=== PATIENT | female | born 1985 | race American Indian/Alaskan Native ===

== ENCOUNTER 2019-04-21 11:20 | Inpatient (IN) | payer OTHER ==
--- NOTE | 2019-04-21 11:29 | Emergency Department Report ---
Blank Doc - Documentation Documentation: This is a 33-year-old female that presents with right leg pain and swelling af ter 4 hour flight. This initial assessment/diagnostic orders/clinical plan/treatment(s) is/are subject to change based on patient's health status, clinical progression and re- assessment by fellow clinical providers in the ED. Further treatment and workup at subsequent clinical providers discretion. Patient/guardians urged not to elope from the ED as their condition may be serious if not clinically assessed and managed. Initial orders include: 1- Patient sent to [facility] for further evaluation and treatment 2- Doppler US
--- NOTE | 2019-04-21 11:44 | Emergency Department Report ---
ED Extremity Problem HPI - General Chief complaint: Extremity Problem,Nontraumatic Stated complaint: LT LEG SWELLING/PAIN Time Seen by Provider: 04/21/19 11:28 Source: patient Mode of arrival: Ambulatory Limitations: No Limitations - History of Present Illness Initial comments: Patient is a 33-year-old female that presents emergency room with right leg pain and swelling. Patient states her pain is from the right mid calf down to her ankle. Patient states is nonradiating. Patient states the pain is an 8 out of 10. Patient states it is worse when she walks and better when she elevates and rest. Patient states she had liposuction one week ago in [place] and then flew back yesterday to [place] on a 4-5 hour flight. Patient states the sympto ms started shortly after taking the flight. Patient states she had a pertinency test just prior to the surgery and was negative. Patient states she has not had any sexual activity since having that urine . MD Complaint: extremity pain, extremity swelling -: Sudden Location: right, lower extremity History of Same: No Severity scale (0 -10): 8 Quality: sharp Consistency: constant Improves with: elevation, rest Worsens with: walking, palpation Associated Symptoms: denies other symptoms - Related Data Previous Rx's Medication Instructions Recorded Last Taken Type Fluticasone Propionate [Flonase] 2 sprays NS QDAY #1 bottle 12/16/14 Unknown Rx Loratadine [Claritin] 10 mg PO DAILY #30 tablet 12/16/14 Unknown Rx predniSONE [Deltasone] 40 mg PO QDAY #10 tab 12/16/14 Unknown Rx Allergies Allergy/AdvReac Type Severity Reaction Status Date / Time No Known Allergies Allergy Unverified 12/16/14 00:11 ED Review of Systems ROS: Stated complaint: LT LEG SWELLING/PAIN Other details as noted in HPI Constitutional: denies: chills, fever Eyes: denies: eye pain, eye discharge, vision change ENT: denies: ear pain, throat pain Respiratory: denies: cough, shortness of breath, wheezing Cardiovascular: denies: chest pain, palpitations Endocrine: no symptoms reported Gastrointestinal: denies: abdominal pain, nausea, diarrhea Genitourinary: denies: urgency, dysuria, discharge Musculoskeletal: denies: back pain, joint swelling, arthralgia Skin: denies: rash, lesions Neurological: denies: headache, weakness, paresthesias Psychiatric: denies: anxiety, depression Hematological/Lymphatic: denies: easy bleeding, easy bruising ED Past Medical Hx - Past Medical History Previous Medical History?: No - Surgical History Past Surgical History?: Yes Additional Surgical History: Gastric sleeve 2017. Liposuction 04/2019 - Family History Family history: no significant - Social History Smoking Status: Current Every Day Smoker Substance Use Type: None - Medications Home Medications: Home Medications Medication Instructions Recorded Confirmed Last Taken Type Fluticasone Propionate [Flonase] 2 sprays NS QDAY #1 bottle 12/16/14 Unknown Rx Loratadine [Claritin] 10 mg PO DAILY #30 tablet 12/16/14 Unknown Rx predniSONE [Deltasone] 40 mg PO QDAY #10 tab 12/16/14 Unknown Rx ED Physical Exam - General Limitations: No Limitations General appearance: alert, in no apparent distress - Head Head exam: Present: atraumatic, normocephalic - Eye Eye exam: Present: normal appearance - ENT ENT exam: Present: mucous membranes moist - Neck Neck exam: Present: normal inspection - Respiratory Respiratory exam: Present: normal lung sounds bilaterally. Absent: respiratory distress - Cardiovascular Cardiovascular Exam: Present: regular rate, normal rhythm. Absent: systolic murmur, diastolic murmur, rubs, gallop - GI/Abdominal GI/Abdominal exam: Present: soft, normal bowel sounds - Extremities Exam Extremities exam: Present: normal inspection (except for right lower extremity.), tenderness (tenderness to right calf and right ankle. Swelling noted at right ankle), calf tenderness (.) - Back Exam Back exam: Present: normal inspection - Neurological Exam Neurological exam: Present: alert, oriented X3 - Psychiatric Psychiatric exam: Present: normal affect, normal mood - Skin Skin exam: Present: warm, dry, intact, normal color. Absent: rash ED Course Vital Signs 04/21/19 04/21/19 04/21/19 11:28 14:33 15:00 Temperature 98.5 F Pulse Rate 121 H Respiratory 18 16 17 Rate Blood Pressure 140/79 Blood Pressure [Right] O2 Sat by Pulse 100 Oximetry 04/21/19 16:34 Temperature Pulse Rate 107 H Respiratory 18 Rate Blood Pressure Blood Pressure 127/86 [Right] O2 Sat by Pulse 100 Oximetry - Consultations Consultation #1: Discussed case with Dr. Black, vascular surgery. Dr. Black recommends admission and heparin drip and CT abdomen and pelvis with runoff. 04/21/19 14:27 Consultation #2: Hospitals consult for admission. Hospitalist to admit the patient. 04/21/19 14:47 ED Medical Decision Making - Lab Data Result diagrams: 04/21/19 15:35 04/21/19 12:31 - Radiology Data Radiology results: report reviewed, image reviewed ADDENDUM Addendum: Additional findings were noted by the technologist in the left popliteal artery. There appears to be hypoechoic nonocclusive thrombus in the left popliteal artery. Normal triphasic waveforms are demonstrated proximal and distal to this assumed partial thrombosis. These findings were discussed with Dr. ac in the emergency department at 1352 hours. Signer Name: Lance Santos Jr, MD Signed: 04/21/2019 1:56 PM Workstation Name: [id number] Addendum Transcribed By: TTR Addendum Dictated By: LANCE SANTOS JR, MD Addendum Electronically Authenticated By: LANCE SANTOS JR, MD Addendum Signed Date/Time: 04/21/191355 DD/ /04/1353 TD/TT: / DUPLEX DOPPLER LOWER EXTREMITY VEINS, RIGHT INDICATION: right leg pain and swelling. TECHNIQUE: Duplex doppler imaging was performed through the veins of the right lower extremity using venous compression and other maneuvers. COMPARISON: No relevant prior imaging study available. FINDINGS: Right Common femoral vein: Negative. Right Superficial femoral vein: Negative. Right Popliteal vein: Negative. Right Calf veins: Negative. Additional findings: None.. IMPRESSION: No sonographic evidence for DVT in the right lower extremity. CTA ABD/pelvis with run off. IMPRESSION: 1. 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 2. No additional significant vascular abnormality of the abdomen, pelvis or lower extremities. - Medical Decision Making Patient is a 33-year-old female that presents emergency room with right leg pain. Patient had recent travel and is postop and had a DVT study done. Ultra sound was negative for DVT Arber shows a nonocclusive thrombus of the right popliteal artery. Patient had labs were unremarkable except for extreme anemia. Patient is recently postop from a liposuction. Patient will given 2 units of packed red blood cells. Vascular surgery consultation. Neurosurgery recommended CTA of the abdomen pelvis with runoff. Patient's CTA was negative except for right popliteal near occlusive emboli. Patient was placed on heparin drip in the ER. Patient admitted to the hospitalist service. - Differential Diagnosis DVT. Leg pain. Sprain strain. Critical Care Time: Yes Critical care attestation.: If time is entered above; I have spent that time in minutes in the direct care of this critically ill patient, excluding procedure time. Critical Care Time: 45 minutes ED Disposition Clinical Impression: Popliteal artery embolism, right, Right leg pain, Right leg swelling Disposition: [id number] OP ADMIT IP TO THIS HOSP Is pt being admited?: Yes Does the pt Need Aspirin: No Condition: Critical Time of Disposition: 14:30
--- NOTE | 2019-04-21 13:14 | Vascular Lab Report ---
DUPLEX DOPPLER LOWER EXTREMITY VEINS, RIGHT INDICATION: right leg pain and swelling. TECHNIQUE: Duplex doppler imaging was performed through the veins of the right lower extremity using venous compression and other maneuvers. COMPARISON: No relevant prior imaging study available. FINDINGS: Right Common femoral vein: Negative. Right Superficial femoral vein: Negative. Right Popliteal vein: Negative. Right Calf veins: Negative. Additional findings: None.. IMPRESSION: No sonographic evidence for DVT in the right lower extremity. Signer Name: Lance tSorm Jr, MD Signed: 04/21/2019 1:09 PM Workstation Name: [id number]
[2019-04-21 13:22] LABS: Hematocrit 21.2 % (30.3-42.9); Hemoglobin 6.8 gm/dl (10.1-14.3); Mean Corpuscular HGB Conc 32 % (30-34); Mean Corpuscular Volume 79 fl (79-97); Platelet Count 617 K/mm3 (140-440); Red Blood Count 2.69 M/mm3 (3.65-5.03); Red Cell Distribution Width 16.8 % (13.2-15.2)
[2019-04-21 13:30] LABS: Alanine Aminotransferase 31 units/L (7-56); Albumin 3.4 g/dL (3.9-5); BUN/Creatinine Ratio 7; Blood Urea Nitrogen 5 mg/dL (7-17); Calcium 8.7 mg/dL (8.4-10.2); Hemolysis Index 20
[2019-04-21] MEDS ORDERED: HEPARIN 10,000 UNITS/10 ML IV ONE (14:29)
[2019-04-21] MEDS ORDERED: DILAUDID IV ONE (14:29)
[2019-04-21] MEDS ORDERED: NACL 0.9% 500 ML 500 ML IV ONE (14:34)
[2019-04-21] MEDS ORDERED: HEPARIN/ 0.45% NACL-25,000 UNIT/500 ML 25,000 UNIT/500 ML BAG IV SCH (15:00)
--- NOTE | 2019-04-21 15:01 | History and Physical Report ---
History of Present Illness Chief complaint: My leg hurts History of present illness: 33 YO Female with Obesity,Nicotine Dependence, Anemia presents to ED for evaluation. Pt states that she has experienced pain in her right leg. Pt states that pain is 8/10, worsened with rest, improved with movement and elevation. Pt states that she has experienced pain over the past 1 week, with worsening symptoms over the past 2 days. Pt transported to [facility] via private vehicle. Pt seen and evaluated in ED and found to have Right Popliteal Artery Occlusion. Pt initiated on heparin drip. Vascular surgery team consulted in ED. Pt denies fever, chills, CP, Palpitations, productive cough, skin rash, or recent ill contacts. No prior admission for review. All listed medication reconciled at time of admission. Past History Past Medical History: other (Obesity, Nicotine Dependence) Past Surgical History: bowel surgery, Other (liposuction) Social history: single, smoking. denies: alcohol abuse, prescription drug abuse Family history: diabetes, hypertension Medications and Allergies Allergies Allergy/AdvReac Type Severity Reaction Status Date / Time No Known Allergies Allergy Unverified 12/16/14 00:11 Home Medications Medication Instructions Recorded Confirmed Last Taken Type Fluticasone Propionate [Flonase] 2 sprays NS QDAY #1 bottle 12/16/14 Unknown Rx Loratadine [Claritin] 10 mg PO DAILY #30 tablet 12/16/14 Unknown Rx predniSONE [Deltasone] 40 mg PO QDAY #10 tab 12/16/14 Unknown Rx Active Meds: Active Medications Heparin Sodium/Sodium Chloride (Heparin/ 0.45% Nacl-25,000 Unit/500 Ml) 25,000 unit in 500 mls @ 30 mls/hr IV TITR RUTIHE; Protocol Review of Systems Constitutional: no weight loss, no weight gain, no fever, no chills Ears, nose, mouth and throat: no ear pain, no ear discharge, no tinnitis, no dec reased hearing, no nasal congestion, no nasal discharge Breasts: no change in shape, no swelling, no mass, no pain, no Cardiovascular: no chest pain, no edema, no lightheadedness Gastrointestinal: no abdominal pain, no nausea, no vomiting, no diarrhea, no constipation Genitourinary Female: no pelvic pain, no flank pain, no menorrhagia, no dysuria, no urinary frequency, no urgency, no stress incontinence, no post void dribbling Menstruation: no ammenorrhea, no ammenorrhea on BC, no period normal, no period heavy Rectal: no pain, no incontinence, no bleeding Musculoskeletal: no neck stiffness, no neck pain, no arm numbness/tingling, no shooting leg pain, no leg numbness/tingling Integumentary: no rash, no pruritis, no redness, no wounds, no jaundice, no boils Neurological: no transient paralysis, no paralysis, no weakness, no parathesias, no numbness, no tingling, no seizures, no syncope, no tremors Psychiatric: no anxiety, no memory loss, no change in sleep habits, no sleep disturbances, no insomnia, no hypersomnia, no change in appetite, no change in libido Endocrine: no cold intolerance, no heat intolerance, no polyphagia, no excessive thirst, no polydipsia, no polyuria Hematologic/Lymphatic: no easy bruising, no easy bleeding, no lymphadenopathy, no lymphedema, no thrombophilia Allergic/Immunologic: no urticaria, no allergic rhinitis, no persistent infections, no anaphylaxis, no gluten intolerance Exam - Constitutional Vitals: Temp Pulse Resp BP Pulse Ox 98.5 F 121 H 16 140/79 100 04/21/19 11:28 04/21/19 11:28 04/21/19 14:33 04/21/19 11:28 04/21/19 11:28 General appearance: Present: mild distress - EENT Eyes: Present: PERRL ENT: hearing intact, clear oral mucosa - Neck Neck: Present: supple, normal ROM - Respiratory Respiratory effort: normal Respiratory: bilateral: CTA - Cardiovascular Heart Sounds: Present: S1 & S2. Absent: rub, click - Extremities Extremities: pulses symmetrical, No edema Peripheral Pulses: within normal limits - Abdominal General gastrointestinal: Present: soft, non-tender, non-distended, normal bowel sounds Female genitourinary: Present: normal - Integumentary Integumentary: Present: clear, warm, dry - Musculoskeletal Musculoskeletal: gait normal, strength equal bilaterally - Psychiatric Psychiatric: appropriate mood/affect, intact judgment & insight - Neurologic Neurologic: CNII-XII intact, moves all extremities Results - Labs CBC & Chem 7: 04/21/19 15:35 04/21/19 12:31 Labs: Abnormal lab results 04/21/19 04/21/19 Range/Units 12:31 12:31 RBC 2.69 L (3.65-5.03) M/mm3 Hgb 6.8 L (10.1-14.3) gm/dl Hct 21.2 L (30.3-42.9) % MCH 25 L (28-32) pg RDW 16.8 H (13.2-15.2) % Plt Count 617 H (140-440) K/mm3 BUN 5 L (7-17) mg/dL Albumin 3.4 L (3.9-5) g/dL Assessment and Plan - Patient Problems (1) Popliteal artery embolism, right Current Visit: Yes Status: Acute Plan to address problem: Heparin drip, CT Angio Abdomen Pelvis with runoffs, Vascular surgery consulted, supportive care. (2) Nicotine dependence unspecified, with withdrawal Current Visit: Yes Status: Acute Qualifiers: Nicotine product type: cigarettes Qualified Code(s): F17.213 - Nicotine dependence, cigarettes, with withdrawal Plan to address problem: Smoking cessation counseling, supportive care. (3) Obesity (BMI 30-39.9) Current Visit: Yes Status: Acute Plan to address problem: Balanced diet, increased physical activity at discharge, (4) Anemia Current Visit: Yes Status: Acute Qualifiers: Anemia type: other cause Plan to address problem: PRBC transfusion, repeat cbc (5) DVT prophylaxis Current Visit: Yes Status: Acute Plan to address problem: SCD to BLE while in bed, therapeutic anticoagulation.
[2019-04-21] MEDS ORDERED: TYLENOL PO PRN (15:12)
[2019-04-21] MEDS ORDERED: SODIUM CHLORIDE FLUSH SYRINGE 10 ML IV PRN (15:12)
[2019-04-21] MEDS ORDERED: PROVENTIL IH PRN (15:12)
[2019-04-21 15:54] LABS: Hemoglobin 6.3 gm/dl (10.1-14.3)
[2019-04-21 16:06] LABS: INR 1.15 (0.87-1.13)
[2019-04-21 16:07] LABS: Hematocrit 18.7 % (30.3-42.9)
[2019-04-21 16:23] LABS: Partial Thromboplastin Time 73.3 Sec. (24.2-36.6)
--- NOTE | 2019-04-21 16:36 | Cat Scan Report ---
CTA ABDOMEN, PELVIS, AND LOWER EXTREMITIES INDICATION: Leg pain. Popliteal artery embolism. TECHNIQUE: Axial CT images were obtained through the abdomen, pelvis and lower extremities after injection of 10 0 mL Omnipaque 350 IV contrast. 3 plane MIP reconstructions were produced. All CT scans at this [facility] are performed using CT dose reduction for ALARA by means of automated exposure control. COMPARISON: None available. FINDINGS: CTA ABDOMEN: Abdominal Aorta: No significant abnormality. Celiac Artery: No significant abnormality. Superior Mesenteric Artery: No significant abnormality. Right Renal Artery: 2 patent arteries of normal caliber supply the right kidney without significant a therosclerosis. Left Renal Artery: 2 patent arteries of normal caliber supply the left kidney without significant ath erosclerosis. The left renal vein is preaortic. Inferior Mesenteric Artery: No significant abnormality. CTA PELVIS: RIGHT: - Common Iliac Artery: No significant abnormality. - Internal Iliac Artery: No significant abnormality. - External Iliac Artery: No significant abnormality. LEFT: - Common Iliac Artery: No significant abnormality. - Internal Iliac Artery: No significant abnormality. - External Iliac Artery: No significant abnormality. CTA LOWER EXTREMITIES: RIGHT LOWER EXTREMITY: - Common Femoral Artery: No significant abnormality. - Superficial Femoral Artery: No significant abnormality. - Profunda Femoral Artery: No significant abnormality. - Popliteal Artery: Near total occlusion of the vessel is seen secondary to thromboembolism. - Anterior Tibial Artery: No significant abnormality. - Tibioperoneal Trunk: No significant abnormality. - Posterior Tibial Artery: No significant abnormality. - Peroneal Artery: No significant abnormality. - Ankle runoff: Three vessel. LEFT LOWER EXTREMITY: - Common Femoral Artery: No significant abnormality. - Superficial Femoral Artery: No significant abnormality. - Profunda Femoral Artery: No significant abnormality. - Popliteal Artery: No significant abnormality. - Anterior Tibial Artery: No significant abnormality. - Tibioperoneal Trunk: No significant abnormality. - Posterior Tibial Artery: No significant abnormality. - Peroneal Artery: No significant abnormality. - Ankle runoff: Three vessel. NONTARGET STRUCTURES: LOWER CHEST:No significant abnormality. ABDOMEN/PELVIS:No acute abnormality. Gastric bypass changes appear unremarkable. LOWER EXTREMITIES:No significant abnormality. SKELETAL: No significant abnormality. ADDITIONAL FINDINGS: None. IMPRESSION: 1. 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 2. No additional significant vascular abnormality of the abdomen, pelvis or lower extremities. Signer Name: Florian Khan MD Signed: 04/21/2019 4:31 PM Workstation Name: [id number]
--- NOTE | 2019-04-21 17:26 | Consultation ---
History of Present Illness - Reason for Consult Consult date: 04/21/19 right leg pain - History of Present Illness 33yo female who recently returned from a 4 hour flight from [place] for lipo suction and fat transplantation to the buttock performed on 04/12 presents to [facility] ED c/o 4 days of worsening, intermittent right leg pain and numbness mainly when lying supine and walking a significant distance. The recent procedure was unremarkable and was scheduled to return [place] this Friday for post-op check. She has never experienced this type of pain before but over the past year has noticed occasional tingling in the right leg. The patient has smoked a pack of cigarettes/3 days for the past 18 years. She denies any family history of blood clots. ROS: as stated in the HPI PMH: obesity PSH: Gastric Bypass 2016 PE: NAD, A&Ox3 RRR non-labored respirations abd: soft, nt, nd, JONEL drain in the RLQ with SS output LE: palpable left pedal pulses, right foot warm with motor/sensory intact Right leg duplex reviewed Abd/pelvis with runoff CTA reviewed Plan: Patient with Right leg arterial insufficiency 2/2 non-occlusive embolus in the popliteal artery. patient with no neurological deficits currently, no emergent need to take for intervention today plan to take to the OR tomorrow morning for right leg revascularization patient admitted to the floor perform frequent neurovascular checks, call vascular for any acute changes NPO p MN Hgb < 7, type and cross and administer 1 unit Medications and Allergies Allergies Allergy/AdvReac Type Severity Reaction Status Date / Time No Known Allergies Allergy Unverified 12/16/14 00:11 Home Medications Medication Instructions Recorded Confirmed Last Taken Type Fluticasone Propionate [Flonase] 2 sprays NS QDAY #1 bottle 12/16/14 Unknown Rx Loratadine [Claritin] 10 mg PO DAILY #30 tablet 12/16/14 Unknown Rx predniSONE [Deltasone] 40 mg PO QDAY #10 tab 12/16/14 Unknown Rx Active Meds: Active Medications Acetaminophen (Tylenol) 650 mg PO Q4H PRN PRN Reason: Pain MILD(1-3)/Fever >100.5/VIVAR Albuterol (Proventil) 2.5 mg IH Q4HRT PRN PRN Reason: Shortness Of Breath Fluticasone Propionate (Flonase) 50 mcg NS QDAY RUTHIE Heparin Sodium/Sodium Chloride (Heparin/ 0.45% Nacl-25,000 Unit/500 Ml) 25,000 unit in 500 mls @ 30 mls/hr IV TITR RUTHIE; Protocol Last Admin: 04/21/19 15:54 Dose: 1,500 units/hr, 30 mls/hr Documented by: Loratadine (Claritin) 10 mg PO DAILY RUTHIE Ondansetron HCl (Zofran) 4 mg IV Q8H PRN PRN Reason: Nausea And Vomiting Oxycodone/Acetaminophen (Percocet 5/325) 1 tab PO Q6H PRN PRN Reason: Pain, Moderate (4-6) Prednisone (Deltasone) 40 mg PO QDAY RUTHIE Sodium Chloride (Sodium Chloride Flush Syringe 10 Ml) 10 ml IV BID RUTHIE Sodium Chloride (Sodium Chloride Flush Syringe 10 Ml) 10 ml IV PRN PRN PRN Reason: LINE FLUSH Exam - Constitutional Vitals: Temp Pulse Resp BP Pulse Ox 98.5 F 107 H 18 127/86 100 04/21/19 11:28 04/21/19 16:34 04/21/19 16:34 04/21/19 16:34 04/21/19 16:34 Results - Labs CBC & Chem 7: 04/21/19 15:35 04/21/19 12:31 Labs: Abnormal lab results 04/21/19 04/21/19 04/21/19 Range/Units 12:31 12:31 15:35 RBC 2.69 L (3.65-5.03) M/mm3 Hgb 6.8 L 6.3 L (10.1-14.3) gm/dl Hct 21.2 L 18.7 L* (30.3-42.9) % MCH 25 L (28-32) pg RDW 16.8 H (13.2-15.2) % Plt Count 617 H 500 H (140-440) K/mm3 INR (0.87-1.13) APTT (24.2-36.6) Sec. BUN 5 L (7-17) mg/dL Albumin 3.4 L (3.9-5) g/dL 04/21/19 Range/Units 15:35 RBC (3.65-5.03) M/mm3 Hgb (10.1-14.3) gm/dl Hct (30.3-42.9) % MCH (28-32) pg RDW (13.2-15.2) % Plt Count (140-440) K/mm3 INR 1.15 H (0.87-1.13) APTT 73.3 H* (24.2-36.6) Sec. BUN (7-17) mg/dL Albumin (3.9-5) g/dL
[2019-04-21] MEDS: PERCOCET 5/325 PO PRN (20:03)
[2019-04-22] MEDS ORDERED: NACL 0.9% 500 ML 500 ML IV ONE (01:20)
[2019-04-22] MEDS: SODIUM CHLORIDE FLUSH SYRINGE 10 ML IV SCH (01:41)
[2019-04-22] MEDS: PERCOCET 5/325 PO PRN ×3 (03:15→23:24)
[2019-04-22] MEDS: ZOFRAN IV PRN ×2 (03:18→23:25)
--- NOTE | 2019-04-22 08:50 | Progress Note ---
Assessment and Plan / Popliteal artery embolism, right Heparin drip, Vascular surgery consulted, supportive care. s/p Right Femoal-popliteal Embolectomy today /Right LE ischemia due to arterial thrombus vascular following, s/p Right Femoal-popliteal Embolectomy / Nicotine dependence unspecified, with withdrawal Smoking cessation counseling, supportive care. / Obesity (BMI 30-39.9) Balanced diet, increased physical activity at discharge, / Anemia PRBC transfusion, repeat cbc / DVT prophylaxis SCD to BLE while in bed, therapeutic anticoagulation. Subjective Date of service: 04/22/19 Interval history: Patient with c/o RLE pain and numbness in the right leg s/p thrombectomy today Objective - Constitutional Vitals: Vital Signs - 12hr 04/21/19 04/21/19 04/22/19 21:15 23:30 00:35 Temperature 98.2 F Pulse Rate 107 H Pulse Rate [ 101 H Left Dorsalis Pedis] Pulse Rate [ 100 H Right Dorsalis Pedis] Respiratory 20 Rate Blood Pressure 104/59 Blood Pressure [Right] O2 Sat by Pulse 96 100 Oximetry 04/22/19 04/22/19 04/22/19 01:55 02:08 02:10 Temperature 98.1 F 98 F 98 F Pulse Rate 104 H 107 H 107 H Pulse Rate [ Left Dorsalis Pedis] Pulse Rate [ Right Dorsalis Pedis] Respiratory 18 18 18 Rate Blood Pressure 118/69 122/86 122/86 Blood Pressure [Right] O2 Sat by Pulse 98 100 100 Oximetry 04/22/19 04/22/19 04/22/19 02:38 02:40 03:10 Temperature 98 F 98 F 97.9 F Pulse Rate 110 H 110 H 89 Pulse Rate [ Left Dorsalis Pedis] Pulse Rate [ Right Dorsalis Pedis] Respiratory 18 18 18 Rate Blood Pressure 125/82 125/82 122/75 Blood Pressure [Right] O2 Sat by Pulse 100 100 100 Oximetry 04/22/19 04/22/19 04/22/19 03:40 03:50 03:57 Temperature 98 F 98 F 97.9 F Pulse Rate 92 H 97 H 87 Pulse Rate [ Left Dorsalis Pedis] Pulse Rate [ Right Dorsalis Pedis] Respiratory 18 18 18 Rate Blood Pressure 114/77 119/78 120/82 Blood Pressure [Right] O2 Sat by Pulse 100 100 100 Oximetry 04/22/19 04/22/1904/22/19 04:12 04:36 04:42 Temperature 98 F 98.0 F 98 F Pulse Rate 87 95 H 95 H Pulse Rate [ Left Dorsalis Pedis] Pulse Rate [ Right Dorsalis Pedis] Respiratory 18 20 18 Rate Blood Pressure 112/87 116/70 116/70 Blood Pressure [Right] O2 Sat by Pulse 100 97 100 Oximetry 04/22/19 04/22/19 04/22/19 05:12 05:42 07:45 Temperature 98 F 98 F Pulse Rate 83 87 Pulse Rate [ Left Dorsalis Pedis] Pulse Rate [ Right Dorsalis Pedis] Respiratory 18 18 Rate Blood Pressure 116/78 117/76 Blood Pressure [Right] O2 Sat by Pulse 100 100 95 Oximetry 04/22/19 07:50 Temperature 97.8 F Pulse Rate 92 H Pulse Rate [ Left Dorsalis Pedis] Pulse Rate [ Right Dorsalis Pedis] Respiratory 18 Rate Blood Pressure Blood Pressure 127/78 [Right] O2 Sat by Pulse 98 Oximetry General appearance: Present: no acute distress, obese - EENT Eyes: PERRL, EOM intact ENT: hearing intact, clear oral mucosa Ears: bilateral: normal - Neck Neck: supple, normal ROM - Respiratory Respiratory effort: normal Respiratory: bilateral: CTA - Cardiovascular Rhythm: regular Heart Sounds: Present: S1 & S2. Absent: gallop, rub Extremities: pulses intact, normal color Extremity abnormal: tenderness (RLE) - Gastrointestinal General gastrointestinal: Present: soft, non-tender, non-distended, normal bowel sounds - Integumentary Integumentary: clear, warm, dry - Musculoskeletal Musculoskeletal: 1, strength equal bilaterally - Neurologic Neurologic: moves all extremities - Psychiatric Psychiatric: memory intact, appropriate mood/affect, intact judgment & insight - Labs CBC & Chem 7: 04/24/19 10:00 04/24/19 04:24 Labs: Abnormal lab results 04/21/19 04/21/19 04/21/19 Range/Units 12:31 12:31 15:35 RBC 2.69 L (3.65-5.03) M/mm3 Hgb 6.8 L 6.3 L (10.1-14.3) gm/dl Hct 21.2 L 18.7 L* (30.3-42.9) % MCH 25 L (28-32) pg RDW 16.8 H (13.2-15.2) % Plt Count 617 H 500 H (140-440) K/mm3 INR (0.87-1.13) APTT (24.2-36.6) Sec. BUN 5 L (7-17) mg/dL Albumin 3.4 L (3.9-5) g/dL Crossmatch 04/21/19 04/21/19 Range/Units 15:35 15:45 RBC (3.65-5.03) M/mm3 Hgb (10.1-14.3) gm/dl Hct (30.3-42.9) % MCH (28-32) pg RDW (13.2-15.2) % Plt Count (140-440) K/mm3 INR 1.15 H (0.87-1.13) APTT 73.3 H* (24.2-36.6) Sec. BUN (7-17) mg/dL Albumin (3.9-5) g/dL Crossmatch See Detail - Imaging and cardiology CT scan - abdomen: report reviewed Venous US: report reviewed
[2019-04-22 09:13] LABS: Alanine Aminotransferase 34 units/L (7-56); Albumin 2.9 g/dL (3.9-5); BUN/Creatinine Ratio 10; Blood Urea Nitrogen 6 mg/dL (7-17); Calcium 8.5 mg/dL (8.4-10.2); Hemolysis Index 18
[2019-04-22 09:26] LABS: Basophils % (Auto) 0.4 % (0.0-1.8); Eosinophils # (Auto) 0.2 K/mm3 (0.0-0.4); Eosinophils % (Auto) 1.7 % (0.0-4.3); Hematocrit 24.6 % (30.3-42.9); Lymphocytes # (Auto) 2.7 K/mm3 (1.2-5.4); Lymphocytes % (Auto) 24.9 % (13.4-35.0); Mean Corpuscular HGB Conc 33 % (30-34); Mean Corpuscular Volume 80 fl (79-97); Monocytes # (Auto) 0.7 K/mm3 (0.0-0.8); Monocytes % (Auto) 6.3 % (0.0-7.3); Platelet Count 532 K/mm3 (140-440); Red Blood Count 3.06 M/mm3 (3.65-5.03); Red Cell Distribution Width 16.9 % (13.2-15.2)
[2019-04-22] MEDS ORDERED: HEPARIN 10,000 UNITS/10 ML ONE ×3 (09:58→14:09)
[2019-04-22] MEDS ORDERED: PROTAMINE SULFATE ONE (09:59)
[2019-04-22] MEDS ORDERED: NACL 0.9% 500 ML 0 ML ONE (09:59)
[2019-04-22] MEDS ORDERED: DELTASONE PO SCH (10:00)
[2019-04-22] MEDS ORDERED: DILAUDID IV PRN (10:47)
--- NOTE | 2019-04-22 10:47 | Anesthesia Consultation ---
Anesthesia Consult and Med Hx Date of service: 04/22/19 - Airway Anesthetic Teeth Evaluation: Good ROM Head & Neck: Adequate Mental/Hyoid Distance: Adequate Mallampati Class: Class II Intubation Access Assessment: Good - Pulmonary Exam CTA: Yes - Cardiac Exam Cardiac Exam: RRR - Pre-Operative Health Status ASA Pre-Surgery Classification: ASA2 Proposed Anesthetic Plan: General, MAC (Smoker 1/2 pack a day , patient had liposuction one week ago)
--- NOTE | 2019-04-22 10:47 | Anesthesia Day of Surgery ---
Anesthesia Day of Surgery - Day of Surgery Patient Examined: Yes Patient H&P Reviewed: Yes Patient is NPO: Yes
[2019-04-22] MEDS ORDERED: VERSED IV NR (11:00)
[2019-04-22] MEDS ORDERED: ANCEF/STERILE WATER 2 GM/20 ML 2 GM/20 ML SYRINGE IV ONE (11:09)
[2019-04-22] MEDS: LACTATED RINGERS 1,000 ML IV SCH ×2 (11:09→17:17)
[2019-04-22] MEDS ORDERED: ANCEF/STERILE WATER 2 GM/20 ML IV NR (11:30)
[2019-04-22] MEDS ORDERED: XYLOCAINE 1% 20 mL ONE (11:42)
[2019-04-22] MEDS ORDERED: ZOFRAN ONE (11:44)
[2019-04-22] MEDS ORDERED: DECADRON ONE (11:44)
[2019-04-22] MEDS ORDERED: XYLOCAINE MPF 2% ONE (11:44)
[2019-04-22] MEDS ORDERED: SUBLIMAZE ONE ×2 (11:45→13:04)
[2019-04-22] MEDS ORDERED: DIPRIVAN 10 MG/ML IV ONE (11:45)
[2019-04-22] MEDS ORDERED: SUBLIMAZE IV NR (12:00)
[2019-04-22] MEDS ORDERED: HEPARIN 10,000 UNITS/10 ML IR ONE (13:22)
[2019-04-22] MEDS ORDERED: NACL 0.9% 500 ML IRRIGATION ONE (13:23)
[2019-04-22] MEDS ORDERED: NACL 0.9% IR ONE (13:23)
[2019-04-22] MEDS ORDERED: NARCAN 0.4 MG/1 ML IV PRN (14:18)
--- NOTE | 2019-04-22 14:18 | Post Operative Note ---
Pre-op diagnosis: Right Lower Extremity Ischemia Post-op diagnosis: same Procedure: 1. Right Superficial Femoral Artery Exposure 2. Right Femoal-popliteal Embolectomy Anesthesia: GETA Surgeon: MINNA SALEH Estimated blood loss: other (200ml) Pathology: list (right leg thrombus) Specimen disposition: to lab Condition: stable Disposition: PACU
[2019-04-22] MEDS ORDERED: PLAVIX PO ONE (14:24)
--- NOTE | 2019-04-22 14:25 | Progress Note ---
Assessment and Plan (1) Popliteal artery embolism, right Current Visit: Yes Status: Acute Plan to address problem: Heparin drip, CT Angio Abdomen Pelvis with runoffs, Vascular surgery consulted, supportive care. (2) Nicotine dependence unspecified, with withdrawal Current Visit: Yes Status: Acute Qualifiers: Nicotine product type: cigarettes Qualified Code(s): F17.213 - Nicotine dependence, cigarettes, with withdrawal Plan to address problem: Smoking cessation counseling, supportive care. (3) Obesity (BMI 30-39.9) Current Visit: Yes Status: Acute Plan to address problem: Balanced diet, increased physical activity at discharge, (4) Anemia Current Visit: Yes Status: Acute Qualifiers: Anemia type: other cause Plan to address problem: PRBC transfusion, repeat cbc (5) DVT prophylaxis Current Visit: Yes Status: Acute Plan to address problem: SCD to BLE while in bed, therapeutic anticoagulation. Subjective Date of service: 04/22/19 Objective - Constitutional Vitals: Vital Signs - 12 04/22/19 04/22/19 04/22/19 02:38 02:40 03:10 Temperature 98 F 98 F 97.9 F Pulse Rate 110 H 110 H 89 Respiratory 18 18 18 Rate Blood Pressure 125/82 125/82 122/75 Blood Pressure [Right] O2 Sat by Pulse 100 100 100 Oximetry 04/22/19 04/22/19 04/22/19 03:40 03:50 03:57 Temperature 98 F 98 F 97.9 F Pulse Rate 92 H 97 H 87 Respiratory 18 18 18 Rate Blood Pressure 114/77 119/78 120/82 Blood Pressure [Right] O2 Sat by Pulse 100 100 100 Oximetry 04/22/19 04/22/19 04/22/19 04:12 04:36 04:42 Temperature 98 F 98.0 F 98 F Pulse Rate 87 95 H 95 H Respiratory 18 20 18 Rate Blood Pressure 112/87 116/70 116/70 Blood Pressure [Right] O2 Sat by Pulse 100 97 100 Oximetry 04/22/19 04/22/19 04/22/19 05:12 05:42 07:45 Temperature 98 F 98 F Pulse Rate 83 87 Respiratory 18 18 Rate Blood Pressure 116/78 117/76 Blood Pressure [Right] O2 Sat by Pulse 100 100 95 Oximetry 04/22/19 04/22/19 04/22/19 07:50 10:40 11:58 Temperature 97.8 F 98.2 F Pulse Rate 92 H 101 H Respiratory 18 18 18 Rate Blood Pressure 128/83 Blood Pressure 127/78 [Right] O2 Sat by Pulse 98 99 Oximetry - Labs CBC & Chem 7: 04/22/19 09:11 04/22/19 08:16 Labs: Abnormal lab results 04/21/19 04/21/19 04/21/19 Range/Units 15:35 15:35 15:45 RBC (3.65-5.03) M/mm3 Hgb 6.3 L (10.1-14.3) gm/dl Hct 18.7 L* (30.3-42.9) % MCH (28-32) pg RDW (13.2-15.2) % Plt Count 500 H (140-440) K/mm3 INR 1.15 H (0.87-1.13) APTT 73.3 H* (24.2-36.6) Sec. BUN (7-17) mg/dL Creatinine (0.7-1.2) mg/dL AST (5-40) units/L Albumin (3.9-5) g/dL Crossmatch See Detail 04/22/19 04/22/19 Range/Units 08:16 09:11 RBC 3.06 L (3.65-5.03) M/mm3 Hgb 8.0 L (10.1-14.3) gm/dl Hct 24.6 L (30.3-42.9) % MCH 26 L (28-32) pg RDW 16.9 H (13.2-15.2) % Plt Count 532 H (140-440) K/mm3 INR (0.87-1.13) APTT (24.2-36.6) Sec. BUN 6 L (7-17) mg/dL Creatinine 0.6 L (0.7-1.2) mg/dL AST 41 H (5-40) units/L Albumin 2.9 L (3.9-5) g/dL Crossmatch
--- NOTE | 2019-04-22 14:59 | Operative Report ---
SURGEON: Dr. Christophe Saleem. PREOPERATIVE DIAGNOSIS: Right lower extremity ischemia. POSTOPERATIVE DIAGNOSIS: Right lower extremity ischemia. PROCEDURE PERFORMED: 1. Right superficial femoral artery exposure. 2. Right femoropopliteal embolectomy. COMPLICATIONS: None. ESTIMATED BLOOD LOSS: 200 mL. ANESTHESIA: General. SPECIMEN: Right leg thrombus sent to pathology. INDICATIONS FOR PROCEDURE: This is a 33-year-old female who recently traveled from [place] after undergoing liposuction and fat transportation to the [facility] on the who was on a 4-hour flight who began having worsening right leg pain and numbness for approximately 4 days and continued discussion with the patient. The patient had a fall approximately 4-6 weeks ago off of a conveyor belt at the airport for which she had a right leg injury, but did not seek any medical treatment. The patient had a workup, which demonstrated a nonocclusive thrombus in the popliteal artery on the right and the patient after our discussion was scheduled to undergo revascularization of the right leg. The patient was explained the risks, benefits and alternatives of procedure, expressed understanding and wished to proceed. DESCRIPTION OF PROCEDURE: Appropriate consent was obtained, the patient was brought back to the operating room, was placed on the operating table in supine position. The patient was given appropriate medication and general anesthesia, was intubated without difficulty. The right lower extremity was prepped and draped in the usual sterile fashion with ChloraPrep. Appropriate preoperative antibiotics were administered. Appropriate timeout was performed indicating the correct patient, procedure, and site of procedure. I then began the operation by making a longitudinal incision on the anterior proximal thigh. This was carried through the subcutaneous tissue with a combination of blunt dissection and electrocautery. Dissection was carried through the fascia laterally, which allowed to expose the femoral vessels. The superficial femoral artery was exposed for appropriate distance both proximally and distally. The patient was then given unfractionated heparin intravenously and ACTs were obtained throughout the remainder of the case for adequate anticoagulation. After appropriate timeout elapsed, a transverse arteriotomy was made with an 11 blade and extended with Lu scissors. We then took a #4 Sreedhar catheter, passed it down the right lower extremity and proceeded to perform a thrombectomy of the femoropopliteal artery and this was done multiple times and a significant amount of organized subacute thrombus was removed. This was then sent to pathology for permanent. There was a good back bleeding. Once a second pass was performed, which was negative for any thrombus, then proceeded to irrigate with heparinized saline and vascular clamps were placed, both proximally and distally. We then proceeded to close the arteriotomy with interrupted 6-0 Prolene suture. Once complete, the flow was reestablished through the femoral artery and at that time a Doppler was then taken to the pedal vessels at the ankle, which had triphasic signals. With that, I then proceeded to obtain hemostasis along our suture line, was obtained with hemostatic agents. Once we were satisfied with hemostasis, then proceeded to close the wound in multiple layers with 3-0 PDS and the skin was approximated with 4-0 Monocryl and Dermabond dressing. The patient tolerated the procedure well, emerged from the general anesthesia, was extubated in the operating room and sent to recovery in stable condition. All sponge, instrument and needle counts were correct at completion of the operation. JOB# [id number] MICKEY/RUTH
[2019-04-22] MEDS: CLARITIN PO SCH (20:01)
--- NOTE | 2019-04-22 21:35 | Post Anesthesia Evaluation ---
- Post Anesthesia Evaluation Patient Participated: Yes Airway Patent: Yes Stable Respiratory Function: Yes Nausea/Vomiting: No Temp > 96.8F: Yes Pain Manageable: Yes Adequeate Hydration: Yes Anesthesia Complications: No Block Receding Appropriately: Not Applicable Patient on Ventilator: No
[2019-04-23] MEDS: PERCOCET 5/325 PO PRN (00:46)
[2019-04-23] MEDS ORDERED: BENADRYL PO NR (01:00)
[2019-04-23] MEDS: MORPHINE IV PRN ×3 (01:40→07:08)
[2019-04-23] MEDS: LACTATED RINGERS 1,000 ML IV SCH ×3 (03:00→17:59)
[2019-04-23] MEDS: SODIUM CHLORIDE FLUSH SYRINGE 10 ML IV SCH ×4 (06:14→21:00)
[2019-04-23] MEDS: FLONASE NS SCH ×2 (06:14→17:52)
[2019-04-23 06:39] LABS: Hematocrit 24.4 % (30.3-42.9); Hemoglobin 7.8 gm/dl (10.1-14.3)
[2019-04-23] MEDS ORDERED: HEPARIN 10,000 UNITS/10 ML IV NR (07:41)
[2019-04-23] MEDS ORDERED: HEPARIN/ 0.45% NACL-25,000 UNIT/500 ML 25,000 UNIT/500 ML BAG IV SCH (08:00)
[2019-04-23 08:18] LABS: Hematocrit 24.4 % (30.3-42.9); Hemoglobin 7.8 gm/dl (10.1-14.3)
[2019-04-23 08:28] LABS: INR 1.03 (0.87-1.13)
[2019-04-23 08:30] LABS: Partial Thromboplastin Time 29.1 Sec. (24.2-36.6)
[2019-04-23 08:41] LABS: Iron 26 ug/dL (37-170); Total Iron Binding Capacity 289 mcg/dL (250-450)
[2019-04-23] MEDS ORDERED: PROTAMINE SULFATE ONE (09:25)
[2019-04-23] MEDS ORDERED: HEPARIN 10,000 UNITS/10 ML ONE ×3 (09:25→12:46)
[2019-04-23] MEDS ORDERED: GELFOAM TP ONE (09:25)
[2019-04-23] MEDS ORDERED: NACL 0.9% 500 ML 500 ML ONE ×2 (09:26→12:46)
[2019-04-23] MEDS ORDERED: ZEMURON IV ONE (09:40)
[2019-04-23] MEDS ORDERED: XYLOCAINE MPF 2% ONE (09:40)
[2019-04-23] MEDS ORDERED: VERSED ONE ×2 (09:40→10:05)
[2019-04-23] MEDS ORDERED: DIPRIVAN 10 MG/ML IV ONE (09:41)
[2019-04-23] MEDS ORDERED: SUBLIMAZE ONE (09:41)
--- NOTE | 2019-04-23 09:43 | Anesthesia Day of Surgery ---
Anesthesia Day of Surgery - Day of Surgery Patient Examined: Yes Patient H&P Reviewed: Yes Patient is NPO: No (last ate 30 minutes ago)
--- NOTE | 2019-04-23 09:57 | Progress Note ---
Subjective Date of service: 04/23/19 Interval history: s/p Right leg embolectomy patient with worsening pain and numbness in the right leg unable to palpate pedal pulses on the right motor intact arterial duplex confirms of re-thrombosis of the right femoral-popliteal segment plan to take back to the OR urgently for planned right leg revascularization Objective - Constitutional Vitals: Vital Signs - 12hr 04/23/19 04/23/19 04/23/19 00:26 05:34 07:48 Temperature 97.5 F L 97.6 F 98.2 F Pulse Rate 103 H 119 H 94 H Respiratory 17 16 18 Rate Blood Pressure 130/81 Blood Pressure 150/83 148/93 [Right] O2 Sat by Pulse 100 100 100 Oximetry - Labs CBC & Chem 7: 04/23/19 07:58 04/22/19 08:16 Labs: Abnormal lab results 04/22/19 04/22/19 04/23/19 Range/Units 13:38 22:20 06:13 Hgb 7.8 L (10.1-14.3) gm/dl Hct 24.4 L (30.3-42.9) % Plt Count 561 H (140-440) K/mm3 Activated Clotting Time 180 H (74-137) Heparin Anti-Xa Level < 0.10 L (0.3-0.7) U.I./ml Iron (37-170) ug/dL Folate (7.3-26.0) ng/mL 04/23/19 04/23/19 04/23/19 Range/Units 07:58 07:58 07:58 Hgb 7.8 L (10.1-14.3) gm/dl Hct 24.4 L (30.3-42.9) % Plt Count 548 H (140-440) K/mm3 Activated Clotting Time (74-137) Heparin Anti-Xa Level (0.3-0.7) U.I./ml Iron 26 L (37-170) ug/dL Folate 4.02 L (7.3-26.0) ng/mL Medications & Allergies - Medications Allergies/Adverse Reactions: Allergies No Known Allergies Allergy (Unverified 12/16/14 00:11) Home Medications: Home Medications Medication Instructions Recorded Confirmed Last Taken Type Fluticasone Propionate [Flonase] 2 sprays NS QDAY #1 bottle 12/16/14 Unknown Rx Loratadine [Claritin] 10 mg PO DAILY #30 tablet 12/16/14 Unknown Rx predniSONE [Deltasone] 40 mg PO QDAY #10 tab 12/16/14 Unknown Rx Active Medications: Generic Name Dose Route Start Last Admin Trade Name Freq PRN Reason Stop Dose Admin Acetaminophen 650 mg 04/21/19 15:12 Tylenol PO Q4H PRN Pain MILD(1-3)/Fever >100.5/VIVAR Albuterol 2.5 mg 04/21/19 15:12 Proventil IH Q4HRT PRN Shortness Of Breath Aspirin 81 mg 04/23/19 10:00 Halfprin Ec PO QDAY RUTHIE Clopidogrel Bisulfate 75 mg 04/23/19 10:00 Plavix PO QDAY RUTHIE Diphenhydramine HCl 50 mg 04/23/19 01:00 04/23/19 00:46 Benadryl PO 04/24/19 00:59 50 mg ONCE NR Administration Fentanyl 100 mcg 04/23/19 09:38 Sublimaze IV 04/23/19 09:39 ONCE ONE Fluticasone Propionate 50 mcg 04/22/19 10:00 04/23/19 06:14 Flonase NS Not Given QDAY RUTHIE Hydromorphone HCl 0.5 mg 04/23/19 09:39 Dilaudid IV Q10MIN PRN Pain , Severe (7-10) Lactated Ringer's 1,000 mls @ 100 mls/hr 04/22/19 11:00 04/23/19 03:00 Lactated Ringers IV 100 mls/hr DIRECT RUTHIE Administration Heparin Sodium/Sodium Chloride 25,000 unit in 500 mls @ 30 mls/hr 04/23/19 08:00 Heparin/ 0.45% Nacl-25,000 Unit/500 Ml IV TITR RUTHIE Protocol 1,500 UNITS/HR Loratadine 10 mg 04/22/19 10:00 04/22/19 20:01 Claritin PO Not Given DAILY RUTHIE Morphine Sulfate 4 mg 04/23/19 01:28 04/23/19 07:08 Morphine IV 4 mg Q3H PRN Administration Pain , Severe (7-10) Naloxone HCl 0.1 mg 04/22/19 14:18 Narcan 0.4 Mg/1 Ml IV Q2MIN PRN Res Rate </= 8 or 02 SAT < 92% Ondansetron HCl 4 mg 04/21/19 15:12 04/22/19 23:25 Zofran IV 4 mg Q8H PRN Administration Nausea And Vomiting Oxycodone/Acetaminophen 2 tab 04/23/19 00:15 04/23/19 00:46 Percocet 5/325 PO 1 tab Q6H PRN Administration Pain, Moderate (4-6) Sodium Chloride 10 ml 04/21/19 22:00 04/23/19 07:11 Sodium Chloride Flush Syringe 10 Ml IV 10 ml BID RUTHIE Administration Sodium Chloride 10 ml 04/21/19 15:12 Sodium Chloride Flush Syringe 10 Ml IV PRN PRN LINE FLUSH
[2019-04-23] MEDS ORDERED: DILAUDID IV PRN ×2 (10:00→16:27)
[2019-04-23] MEDS ORDERED: SUBLIMAZE IV NR (10:00)
[2019-04-23] MEDS ORDERED: PLAVIX PO SCH (10:00)
[2019-04-23] MEDS ORDERED: XYLOCAINE 1% 20 mL ONE (10:02)
[2019-04-23] MEDS ORDERED: QUELICIN ONE (10:04)
--- NOTE | 2019-04-23 10:29 | Vascular Lab Report ---
DUPLEX DOPPLER LOWER EXTREMITY ARTERIAL, right INDICATION: cool right foot. Peripheral vascular disease. History of thrombosis in right popliteal artery with th rombectomy on 04/22/2019. TECHNIQUE: Arterial duplex examination of the right lower extremity performed using B-mode, color flow and spect ral Doppler assessment. FINDINGS: RIGHT: Common Femoral Artery: PSV 74 cm/sec. Triphasic waveform. Proximal SFA: PSV 0 cm/sec. Mid SFA: PSV 0 cm/sec. Distal SFA: PSV 0 cm/sec. Popliteal artery: PSV 0 cm/sec. Posterior tibial artery: PSV 0 cm/sec. Anterior tibial artery: PSV 6 cm/sec. Monophasic waveform. IMPRESSION: No color Doppler flow or velocities could be identified in the superficial femoral artery, popliteal artery and posterior tibial artery consistent with thrombosis. There is trace flow in the anterior ti bial artery. Doppler Waveform: * Triphasic is normal. * Biphasic is abnormal if clear transition from triphasic signal along vascular tree. * Monophasic is abnormal. Signer Name: Lance Storm Jr, MD Signed: 04/23/2019 10:25 AM Workstation Name: [id number]
[2019-04-23] MEDS ORDERED: HEPARIN 10,000 UNITS/10 ML IV ONE ×2 (10:43)
[2019-04-23] MEDS ORDERED: NACL 0.9% IR ONE (10:43)
[2019-04-23] MEDS ORDERED: NACL 0.9% 500 ML IRRIGATION ONE ×2 (10:43)
[2019-04-23] MEDS ORDERED: HEPARIN ONE (12:47)
[2019-04-23] MEDS ORDERED: CATHFLO ONE ×2 (12:50→13:12)
[2019-04-23] MEDS ORDERED: HEPARIN/NS 5000 UNIT/500ML(CATH LAB) 500 ML IR ONE (13:04)
[2019-04-23] MEDS ORDERED: TORADOL ONE (13:06)
[2019-04-23] MEDS ORDERED: REGLAN ONE (13:06)
[2019-04-23] MEDS ORDERED: CATHFLO IV ONE ×2 (13:06→14:17)
[2019-04-23] MEDS ORDERED: ZOFRAN ONE (13:06)
[2019-04-23] MEDS ORDERED: DECADRON ONE (13:06)
[2019-04-23] MEDS ORDERED: HEPARIN IV ONE (13:06)
[2019-04-23] MEDS ORDERED: LACTATED RINGERS 1,000 ML ONE (13:23)
--- NOTE | 2019-04-23 14:26 | Progress Note ---
Assessment and Plan / Popliteal artery embolism, right with LE ischemia On Heparin drip, Vascular surgery consulted, s/p Right Femoal-popliteal Embolectomy on 04/22 repeat US showed rethrombosis - taken to OR emergenty for revascularization / Nicotine abuse Smoking cessation counseling done, supportive care. Nicotine patch if needed / Obesity (BMI 30-39.9) Balanced diet, increased physical activity at discharge, / Anemia, POA PRBC transfusion, repeat cbc / DVT prophylaxis SCD to BLE while in bed, therapeutic anticoagulation. Subjective Date of service: 04/23/19 Interval history: Patient c/o RLE worsening pain and numbness in the right leg Vascular examined the pt and she was taken for OR Objective - Constitutional Vitals: Vital Signs - 12hr 04/23/19 04/23/19 04/23/19 05:34 07:48 09:22 Temperature 97.6 F 98.2 F 97.6 F Pulse Rate 119 H 94 H 76 Respiratory 16 18 20 Rate Blood Pressure 130/81 143/94 Blood Pressure 148/93 [Right] O2 Sat by Pulse 100 100 100 Oximetry 04/23/19 04/23/19 09:25 10:01 Temperature 97.6 F Pulse Rate 76 Respiratory 20 20 Rate Blood Pressure 143/94 Blood Pressure [Right] O2 Sat by Pulse 100 Oximetry General appearance: Present: no acute distress, obese - EENT Eyes: PERRL, EOM intact ENT: hearing intact, clear oral mucosa Ears: bilateral: normal - Neck Neck: supple, normal ROM - Respiratory Respiratory effort: normal Respiratory: bilateral: CTA - Cardiovascular Rhythm: regular Heart Sounds: Present: S1 & S2. Absent: gallop, rub Extremities: normal color Extremity abnormal: edema (RLE), pulses diminished (on RLE), tenderness (RLE) - Gastrointestinal General gastrointestinal: Present: soft, non-tender, non-distended, normal bowel sounds - Integumentary Integumentary: clear, warm, dry, no erythema - Musculoskeletal Musculoskeletal: 1, strength equal bilaterally - Neurologic Neurologic: moves all extremities - Psychiatric Psychiatric: memory intact, appropriate mood/affect, intact judgment & insight - Labs CBC & Chem 7: 04/24/19 04:24 04/24/19 04:24 Labs: Abnormal lab results 04/21/19 04/22/19 04/22/19 Range/Units 15:45 13:38 22:20 Hgb (10.1-14.3) gm/dl Hct (30.3-42.9) % Plt Count (140-440) K/mm3 Activated Clotting Time 180 H (74-137) Heparin Anti-Xa Level < 0.10 L (0.3-0.7) U.I./ml Iron (37-170) ug/dL Folate (7.3-26.0) ng/mL Crossmatch See Detail 04/23/19 04/23/19 04/23/19 Range/Units 06:13 07:58 07:58 Hgb 7.8 L (10.1-14.3) gm/dl Hct 24.4 L (30.3-42.9) % Plt Count 561 H (140-440) K/mm3 Activated Clotting Time (74-137) Heparin Anti-Xa Level (0.3-0.7) U.I./ml Iron 26 L (37-170) ug/dL Folate 4.02 L (7.3-26.0) ng/mL Crossmatch 04/23/19 04/23/19 04/23/19 Range/Units 07:58 11:15 11:36 Hgb 7.8 L (10.1-14.3) gm/dl Hct 24.4 L (30.3-42.9) % Plt Count 548 H (140-440) K/mm3 Activated Clotting Time 191 H 202 H (74-137) Heparin Anti-Xa Level (0.3-0.7) U.I./ml Iron (37-170) ug/dL Folate (7.3-26.0) ng/mL Crossmatch 04/23/19 Range/Units 12:06 Hgb (10.1-14.3) gm/dl Hct (30.3-42.9) % Plt Count (140-440) K/mm3 Activated Clotting Time 208 H (74-137) Heparin Anti-Xa Level (0.3-0.7) U.I./ml Iron (37-170) ug/dL Folate (7.3-26.0) ng/mL Crossmatch
[2019-04-23] MEDS ORDERED: NACL 0.9% IV SCH (14:30)
[2019-04-23] MEDS ORDERED: CATHFLO IV SCH (14:30)
[2019-04-23] MEDS ORDERED: NITROGLYCERIN SYRINGE UD ONE (14:33)
[2019-04-23] MEDS ORDERED: NITROGLYCERIN SYRINGE 3 ML ONE (14:37)
--- NOTE | 2019-04-23 15:36 | Post Operative Note ---
Pre-op diagnosis: Right Lower Extremity Critical Limb Ischemia Post-op diagnosis: same Findings: Initial Angiogram demonstrated patent right SFA and P1 segment of the popliteal artery with [employer]EL of the P2 segment of the popliteal artery with sluggish reconstitution of the proximal AT with 1 vessel runoff to the foot via the AT Completion Angiogram demonstrates successful mechanical thrombectomy of the right popliteal artery and TP trunk with widely patent popliteal, AT and PT artery with 2 vessel runoff to the foot via the AT and PT IVUS of the popliteal artery demonstrates patent popliteal artery with no evidence of the residual thrombus or dissection Procedure: 1. Right Superficial Femoral Artery Exposure 2. Right Femoral-Popliteal Open Thrombectomy 3. Right Lower Extremity Angiogram via Femoral Antegrade Access with 3rd Order Catheter Placement 4. Right Ehdwsbz-Drfssxdaz-Oryblc Mechanical Thrombectomy using Angiojet 5. Intravascular Ultrasound of the Right Popliteal Artery 6. Radiologic Supervision and Interpretation Anesthesia: GETA Surgeon: MINNA SALEH Estimated blood loss: other (400ml) Condition: stable Disposition: PACU
[2019-04-23] MEDS ORDERED: NORMODYNE IV ONE ×2 (15:44→15:46)
[2019-04-23] MEDS ORDERED: APRESOLINE IV ONE (16:09)
[2019-04-23] MEDS ORDERED: APRESOLINE ONE (16:12)
[2019-04-23 16:16] LABS: Hematocrit 21.3 % (30.3-42.9)
--- NOTE | 2019-04-23 16:18 | Event Note ---
Date: 04/23/19 patient likely in a hypercoag state and will require senior living OAC at the time of discharge. continue argatroban gtt overnight and can switch to OAC in the AM if no issues with re-thrombosis. patient also to benefit from Hematology consult.
--- NOTE | 2019-04-23 16:41 | Post Anesthesia Evaluation ---
- Post Anesthesia Evaluation Patient Participated: Yes Airway Patent: Yes Stable Respiratory Function: Yes Nausea/Vomiting: No Temp > 96.8F: Yes Pain Manageable: Yes Adequeate Hydration: Yes Anesthesia Complications: No
[2019-04-23] MEDS: CLARITIN PO SCH (17:52)
[2019-04-23] MEDS: HALFPRIN EC PO SCH (17:52)
[2019-04-23] MEDS: DILAUDID IV PRN ×3 (17:59→23:46)
--- NOTE | 2019-04-23 19:58 | Operative Report ---
STAFF SURGEON: Dr. Christophe Saleem. PREOPERATIVE DIAGNOSIS: Right lower extremity critical limb ischemia. POSTOPERATIVE DIAGNOSIS: Right lower extremity critical limb ischemia. PROCEDURE PERFORMED: 1. Right superficial femoral artery open exposure. 2. Right femoral popliteal open thrombectomy. 3. Right lower extremity angiogram via femoral antegrade access with third order catheter placement. 4. Right femoral, popliteal, tibial mechanical thrombectomy using AngioJet. 5. Intravascular ultrasound of the right popliteal artery. 6. Radiologic supervision and interpretation. COMPLICATIONS: None. ESTIMATED BLOOD LOSS: 400 mL. ANESTHESIA: General. ANGIOGRAPHIC FINDINGS: Initial angiogram demonstrated a patent right superficial femoral artery and P1 segment of the popliteal artery with a complete total occlusion of the P2 segment of the popliteal artery with a sluggish reconstitution of the proximal anterior tibial artery with 1-vessel runoff to the foot via the anterior tibial artery. Completion angiogram demonstrated successful mechanical thrombectomy of the right popliteal artery and tibioperoneal trunk with widely patent popliteal, anterior tibial and posterior tibial arteries with a 2-vessel runoff to the foot via the AT and PT. Intravascular ultrasound of the popliteal artery demonstrated a widely patent popliteal artery with no evidence of residual thrombus or dissection. INDICATIONS FOR PROCEDURE: This is a 33-year-old female who is currently hospitalized due to ischemia of the right leg, which workup demonstrated occlusion of the popliteal artery on the right. The patient underwent an open thrombectomy a day prior and postoperatively underwent adequate perfusion of the right leg. Overnight, the patient began having worsening pain and numbness in the right leg and underwent a repeat arterial duplex, which demonstrated a re-thrombosis of the femoral popliteal artery and therefore, was taken back to the operating room urgently for attempted revascularization of the right lower extremity. The patient was explained the risks, benefits, alternatives of procedure, expressed understanding and wished to proceed. DESCRIPTION OF PROCEDURE: After appropriate consent was obtained, the patient was brought back to the operating room and placed on the operating table in supine position. The patient was given appropriate medication for general anesthesia. The right leg was prepped and draped in usual sterile fashion with ChloraPrep. The patient was given appropriate medication for preoperative antibiotics. An appropriate timeout was performed indicating the correct patient, procedure, and site of the procedure. We then began the operation by making a longitudinal incision on the anterior side, which was the previous incision from the day prior. This was carried through the subcutaneous tissue by cutting the previously placed PDS sutures, which allowed us to expose the superficial femoral artery in the entirety of the wound. Proximal and distal control was obtained using vessel loops in a ____ fashion. The patient was given unfractionated heparin intravenously and ACTs were obtained throughout the remainder of the case for adequate anticoagulation. 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 After appropriate time had elapsed, the Prolene sutures from the previous arteriotomy closure were removed using an 11 blade. We then proceeded to take a #4 Fogerty and proceeded to perform open thrombectomy of the femoral popliteal artery, removing a significant amount of thrombus, which was discarded. This thrombus was fresh and there was still also some residual chronic thrombus that was also removed after multiple passes. In addition, it was noted that #4 Sreedhar was not traveling more than 30 cm and so #3 and #2 Sreedhar were also brought on the field, although removed some thrombus, was unable to pass the catheters only so far and so the #4 Sreedhar catheter was passed proximally, removed some thrombus from the proximal SFA and getting good inflow and so then the arteriotomy was then closed with interrupted 6-0 Prolene. Once complete flow was reestablished through the SFA, we then proceeded to obtain access of the SFA distal to our repair using micropuncture technique. Once this was obtained, next the needle was exchanged for a micropuncture sheath using Seldinger technique and eventually upsized to a 6-English sheath. Diagnostic angiogram was performed, which demonstrated findings noted above on our initial angio. With this, we then proceeded to attempt to cross the lesion with a Glidewire and a TrailBlazer catheter. This was unsuccessful and determined that the thrombus was chronic in nature and so this was abandoned. Vascular clamps were placed, both proximally and distally and proceeded to remove the 6-0 Prolene suture and reattempt to open thrombectomy of the femoral popliteal segment. Then, proceeded to perform a repeat open thrombectomy of the femoropopliteal segment. This time around, was able to pass a #3 and #2 Sreedhar catheters further distally and removed a significant amount of chronic thrombus and so once 2 negative passes were obtained, then arteriotomy was reclosed with interrupted 6-0 Prolene sutures. Flow was reestablished through the SFA and we obtained a repeat access of the SFA distal to the arteriotomy to the previous access site and again pushing a 6-English sheath through the SFA. Repeat angiogram was performed, which demonstrated that the patient had re-thrombosed again the P2 segment of the popliteal artery with faint reconstitution of the AT. With this, we then proceeded to bring a V-18 wire and the TrailBlazer catheter and after significant manipulation, I was able to navigate the wire into the anterior tibial cross the lesion and navigate into the anterior tibial artery. Once that was complete, an angiogram of the anterior tibial artery was performed demonstrating intact runoff to the foot. The V-18 was replaced into the 18 and the catheter was removed and a 6-English AngioJet device was adequately prepped and placed across the lesion just above the lesion in the popliteal artery and then proceeded to use TPA and laced using a power pulse spray and laced the thrombosed portion of the popliteal artery into the AT. This was then left to dwell for approximately 30 minutes and then proceeded to perform mechanical thrombectomy using AngioJet and performing at 3 passes. Once complete, an AngioJet catheter was removed. A completion angiogram was performed, which demonstrated a successful mechanical thrombectomy of the popliteal artery with a patent popliteal artery, anterior tibial and tibioperoneal trunk. There was some residual thrombus that was thought to be seen in the P2 segment of the popliteal artery as well as thrombus in the TP trunk and so more TPA was used to lace those two areas and were left to dwell for approximately 15 minutes and then again mechanical thrombectomy was performed of the P2 segment of the popliteal artery and the TP trunk. Once complete, then proceeded to take the completion angio demonstrated a widely patent popliteal artery and TP trunk. There was some spasm noted in the AT and TP trunk, on which 400 mcg of nitro was used which after several minutes showed a significant improvement and so then IVUS was brought on the field to evaluate the popliteal artery to demonstrate if there was any residual thrombus or dissection flap and so this was performed and as noted above, there was no evidence of any residual thrombus or dissection. So, all our wires and catheters were removed. Completion angio was performed demonstrating again widely patent popliteal artery, anterior tibial and posterior tibial arteries with a 2-vessel runoff to the foot. With this, we then proceeded to remove the sheath and closed the access site with a [id number] Prolene and 6-0 Prolene suture. Once complete, then proceeded to look to obtain hemostasis along our suture lines, was obtained with hemostatic agents. Once we were satisfied with hemostasis, we then proceeded to close the wound in multiple layers with 3-0 PDS. Skin was approximated with sunday. The patient had triphasic signals in the anterior tibial and posterior tibial arteries at the ankle. The patient tolerated the procedure well, emerged from the general anesthesia, was extubated in the operating room and sent to recovery in stable condition. All the sponges, instrument and needle counts were correct at the completion of the operation. JOB# [id number] MICKEY/RUTH
[2019-04-23] MEDS: ZOFRAN IV PRN (20:49)
[2019-04-24] MEDS: DILAUDID IV PRN ×7 (02:04→21:45)
[2019-04-24] MEDS: LACTATED RINGERS 1,000 ML IV SCH ×2 (04:16→21:46)
[2019-04-24 04:35] LABS: Basophils # (Auto) 0.1 K/mm3 (0.0-0.1); Basophils % (Auto) 0.4 % (0.0-1.8); Hematocrit 20.1 % (30.3-42.9); Hemoglobin 6.6 gm/dl (10.1-14.3); Lymphocytes # (Auto) 1.8 K/mm3 (1.2-5.4); Lymphocytes % (Auto) 11.5 % (13.4-35.0); Mean Corpuscular HGB Conc 33 % (30-34); Mean Corpuscular Volume 80 fl (79-97); Monocytes # (Auto) 0.8 K/mm3 (0.0-0.8); Monocytes % (Auto) 4.9 % (0.0-7.3); Platelet Count 502 K/mm3 (140-440); Red Cell Distribution Width 17.7 % (13.2-15.2)
[2019-04-24 04:50] LABS: BUN/Creatinine Ratio 10; Blood Urea Nitrogen 9 mg/dL (7-17); Calcium 8.6 mg/dL (8.4-10.2); Hemolysis Index 26
[2019-04-24] MEDS: PERCOCET 5/325 PO PRN ×2 (09:49→16:07)
[2019-04-24] MEDS: HALFPRIN EC PO SCH (09:49)
[2019-04-24] MEDS: CLARITIN PO SCH (09:49)
[2019-04-24] MEDS: SODIUM CHLORIDE FLUSH SYRINGE 10 ML IV SCH ×2 (09:53→21:45)
[2019-04-24 10:20] LABS: Hematocrit 20.3 % (30.3-42.9); Hemoglobin 6.6 gm/dl (10.1-14.3)
[2019-04-24] MEDS ORDERED: NACL 0.9% 500 ML 500 ML IV ONE (10:30)
--- NOTE | 2019-04-24 10:54 | Event Note ---
Date: 04/23/19 [id number]
[2019-04-24] MEDS: FLONASE NS SCH (11:19)
[2019-04-24] MEDS ORDERED: FERRLECIT 125 MG in NACL 0.9% 100 ML IV ONE ×2 (12:00→21:00)
--- NOTE | 2019-04-24 12:19 | Consultation ---
Past History Past Medical History: other (Obesity, Nicotine Dependence) Past Surgical History: bowel surgery, Other (liposuction) Social history: single, smoking. denies: alcohol abuse, prescription drug abuse Family history: diabetes, hypertension Medications and Allergies Allergies Allergy/AdvReac Type Severity Reaction Status Date / Time No Known Allergies Allergy Unverified 12/16/14 00:11 Home Medications Medication Instructions Recorded Confirmed Last Taken Type Fluticasone Propionate [Flonase] 2 sprays NS QDAY #1 bottle 12/16/14 Unknown Rx Loratadine [Claritin] 10 mg PO DAILY #30 tablet 12/16/14 Unknown Rx predniSONE [Deltasone] 40 mg PO QDAY #10 tab 12/16/14 Unknown Rx Active Meds: Active Medications Acetaminophen (Tylenol) 650 mg PO Q4H PRN PRN Reason: Pain MILD(1-3)/Fever >100.5/VIVAR Albuterol (Proventil) 2.5 mg IH Q4HRT PRN PRN Reason: Shortness Of Breath Aspirin (Halfprin Ec) 81 mg PO QDAY [facility] [place] Last Admin: 04/24/19 09:49 Dose: 81 mg Documented by: Fluticasone Propionate (Flonase) 50 mcg NS QDAY [facility] [place] Last Admin: 04/24/19 11:19 Dose: 50 mcg Documented by: Hydromorphone HCl (Dilaudid) 0.5 mg IV Q2H PRN PRN Reason: Pain , Severe (7-10) Last Admin: 04/24/19 08:35 Dose: 0.5 mg Documented by: Lactated Ringer's (Lactated Ringers) 1,000 mls @ 100 mls/hr IV DIRECT [facility] [place] Last Admin: 04/24/19 04:16 Dose: 100 mls/hr Documented by: Argatroban 250 mg/ Sodium (Chloride) 250 mls @ 13.88 mls/hr IV TITR RUTHIE; Protocol Ferric Sodium Gluconate Complex 125 mg/ Sodium Chloride 110 mls @ 100 mls/hr IV ONCE ONE Stop: 04/24/19 13:05 Loratadine (Claritin) 10 mg PO DAILY [facility] [place] Last Admin: 04/24/19 09:49 Dose: 10 mg Documented by: Naloxone HCl (Narcan 0.4 Mg/1 Ml) 0.1 mg IV Q2MIN PRN PRN Reason: Res Rate </= 8 or 02 SAT < 92% Ondansetron HCl (Zofran) 4 mg IV Q8H PRN PRN Reason: Nausea And Vomiting Last Admin: 04/23/19 20:49 Dose: 4 mg Documented by: Oxycodone/Acetaminophen (Percocet 5/325) 2 tab PO Q6H PRN PRN Reason: Pain, Moderate (4-6) Last Admin: 04/24/19 09:49 Dose: 2 tab Documented by: Sodium Chloride (Sodium Chloride Flush Syringe 10 Ml) 10 ml IV BID [facility]UTHIE Last Admin: 04/24/19 09:53 Dose: 10 ml Documented by: Sodium Chloride (Sodium Chloride Flush Syringe 10 Ml) 10 ml IV PRN PRN PRN Reason: LINE FLUSH Exam - Constitutional Vitals: Temp Pulse Resp BP Pulse Ox 97.6 F 103 H 18 120/72 98 04/24/19 11:08 04/24/19 11:08 04/24/19 11:08 04/24/19 11:08 04/24/19 11:08 Results - Labs CBC & Chem 7: 04/24/19 10:00 04/24/19 04:24 Labs: Abnormal lab results 04/21/19 04/23/19 04/23/19 Range/Units 15:45 15:47 19:21 WBC (4.5-11.0) K/mm3 RBC (3.65-5.03) M/mm3 Hgb 7.0 L (10.1-14.3) gm/dl Hct 21.3 L (30.3-42.9) % MCH (28-32) pg RDW (13.2-15.2) % Plt Count (140-440) K/mm3 Lymph % (Auto) (13.4-35.0) % Seg Neutrophils % (40.0-70.0) % Seg Neutrophils # (1.8-7.7) K/mm3 APTT 85.3 H* (24.2-36.6) Sec. Glucose (65-100) mg/dL Crossmatch See Detail 04/24/19 04/24/19 04/24/19 Range/Units 04:24 04:24 07:35 WBC 15.6 H (4.5-11.0) K/mm3 RBC 2.50 L (3.65-5.03) M/mm3 Hgb 6.6 L (10.1-14.3) gm/dl Hct 20.1 L (30.3-42.9) % MCH 26 L (28-32) pg RDW 17.7 H (13.2-15.2) % Plt Count 502 H (140-440) K/mm3 Lymph % (Auto) 11.5 L (13.4-35.0) % Seg Neutrophils % 83.2 H (40.0-70.0) % Seg Neutrophils # 12.9 H (1.8-7.7) K/mm3 APTT 66.0 H* (24.2-36.6) Sec. Glucose 105 H (65-100) mg/dL Crossmatch 04/24/19 Range/Units 10:00 WBC (4.5-11.0) K/mm3 RBC (3.65-5.03) M/mm3 Hgb 6.6 L (10.1-14.3) gm/dl Hct 20.3 L (30.3-42.9) % MCH (28-32) pg RDW (13.2-15.2) % Plt Count (140-440) K/mm3 Lymph % (Auto) (13.4-35.0) % Seg Neutrophils % (40.0-70.0) % Seg Neutrophils # (1.8-7.7) K/mm3 APTT (24.2-36.6) Sec. Glucose (65-100) mg/dL Crossmatch
[2019-04-24] MEDS: FOLVITE PO SCH (13:13)
--- NOTE | 2019-04-24 13:22 | Progress Note ---
Assessment and Plan / Popliteal artery embolism, right with LE ischemia s/p Heparin drip, Vascular surgery consulted, s/p Right Femoal-popliteal Embolectomy on 04/22 repeat US showed rethrombosis - taken to OR emergenty for revascularization on 04/24/19 On argatobran drip today, plan to place on coumadin - monitor INR / Nicotine abuse Smoking cessation counseling done, supportive care. Nicotine patch if needed / Obesity (BMI 30-39.9) Balanced diet, increased physical activity at discharge, / Anemia, POA s/p 2 units PRBC transfusion, repeat cbc showed hb 6.6 today - transfuse additional 2 units / DVT prophylaxis SCD to BLE while in bed, therapeutic anticoagulation. Subjective Date of service: 04/24/19 Interval history: Patient with c/o RLE pain and numbness in the right leg But symptom improved since yesterday No active bleeding Objective - Exam Narrative Exam: General appearance: Present: no acute distress, obese - EENT Eyes: PERRL, EOM intact ENT: hearing intact, clear oral mucosa Ears: bilateral: normal - Neck Neck: supple, normal ROM - Respiratory Respiratory effort: normal Respiratory: bilateral: CTA - Cardiovascular Rhythm: regular Heart Sounds: Present: S1 & S2. Absent: gallop, rub Extremities: normal color Extremity abnormal: edema (RLE), pulses diminished (on RLE), tenderness (RLE) - Gastrointestinal General gastrointestinal: Present: soft, non-tender, non-distended, normal bowel sounds - Integumentary Integumentary: clear, warm, dry, no erythema - Musculoskeletal Musculoskeletal: 1, strength equal bilaterally - Neurologic Neurologic: moves all extremities - Psychiatric Psychiatric: memory intact, appropriate mood/affect, intact judgment & insight - Constitutional Vitals: Vital Signs - 12hr 04/24/19 04/24/19 04/24/19 03:43 07:10 08:00 Temperature 97.4 F L 98.1 F Pulse Rate Respiratory Rate Blood Pressure O2 Sat by Pulse 96 Oximetry 04/24/19 04/24/19 04/24/19 10:57 11:08 12:00 Temperature 97.6 F 98.2 F Pulse Rate 103 H Respiratory 18 Rate Blood Pressure 120/72 O2 Sat by Pulse 95 98 Oximetry - Labs CBC & Chem 7: 04/25/19 05:12 04/24/19 04:24 Labs: Abnormal lab results 04/21/19 04/23/19 04/23/19 Range/Units 15:45 15:47 19:21 WBC (4.5-11.0) K/mm3 RBC (3.65-5.03) M/mm3 Hgb 7.0 L (10.1-14.3) gm/dl Hct 21.3 L (30.3-42.9) % MCH (28-32) pg RDW (13.2-15.2) % Plt Count (140-440) K/mm3 Lymph % (Auto) (13.4-35.0) % Seg Neutrophils % (40.0-70.0) % Seg Neutrophils # (1.8-7.7) K/mm3 APTT 85.3 H* (24.2-36.6) Sec. Glucose (65-100) mg/dL Crossmatch See Detail 04/24/19 04/24/19 04/24/19 Range/Units 04:24 04:24 07:35 WBC 15.6 H (4.5-11.0) K/mm3 RBC 2.50 L (3.65-5.03) M/mm3 Hgb 6.6 L (10.1-14.3) gm/dl Hct 20.1 L (30.3-42.9) % MCH 26 L (28-32) pg RDW 17.7 H (13.2-15.2) % Plt Count 502 H (140-440) K/mm3 Lymph % (Auto) 11.5 L (13.4-35.0) % Seg Neutrophils % 83.2 H (40.0-70.0) % Seg Neutrophils # 12.9 H (1.8-7.7) K/mm3 APTT 66.0 H* (24.2-36.6) Sec. Glucose 105 H (65-100) mg/dL Crossmatch 04/24/19 Range/Units 10:00 WBC (4.5-11.0) K/mm3 RBC (3.65-5.03) M/mm3 Hgb 6.6 L (10.1-14.3) gm/dl Hct 20.3 L (30.3-42.9) % MCH (28-32) pg RDW (13.2-15.2) % Plt Count (140-440) K/mm3 Lymph % (Auto) (13.4-35.0) % Seg Neutrophils % (40.0-70.0) % Seg Neutrophils # (1.8-7.7) K/mm3 APTT (24.2-36.6) Sec. Glucose (65-100) mg/dL Crossmatch
--- NOTE | 2019-04-24 14:24 | Consultation ---
History of Present Illness Consult date: 04/24/19 Requesting physician: ANITA COURTNEY Reason for consult: other (Acute Limb Ischemia s/p thrombectomy) History of present illness: PULMONARY/CCM CONSULT NOTE (Full dictation # [id number]) Please see dictated notes for full details Past History Past Medical History: other (Obesity, Nicotine Dependence) Past Surgical History: bowel surgery, Other (liposuction) Social history: single, smoking. denies: alcohol abuse, prescription drug abuse Family history: diabetes, hypertension Medications and Allergies Allergies Allergy/AdvReac Type Severity Reaction Status Date / Time No Known Allergies Allergy Unverified 12/16/14 00:11 Home Medications Medication Instructions Recorded Confirmed Last Taken Type Fluticasone Propionate [Flonase] 2 sprays NS QDAY #1 bottle 12/16/14 Unknown Rx Loratadine [Claritin] 10 mg PO DAILY #30 tablet 12/16/14 Unknown Rx predniSONE [Deltasone] 40 mg PO QDAY #10 tab 12/16/14 Unknown Rx Active Meds: Active Medications Acetaminophen (Tylenol) 650 mg PO Q4H PRN PRN Reason: Pain MILD(1-3)/Fever >100.5/VIVAR Albuterol (Proventil) 2.5 mg IH Q4HRT PRN PRN Reason: Shortness Of Breath Aspirin (Halfprin Ec) 81 mg PO QDAY [facility] Last Admin: 04/24/19 09:49 Dose: 81 mg Documented by: Fluticasone Propionate (Flonase) 50 mcg NS QDAY [facility] Last Admin: 04/24/19 11:19 Dose: 50 mcg Documented by: Folic Acid (Folvite) 1 mg PO QDAY [facility] Last Admin: 04/24/19 13:13 Dose: 1 mg Documented by: Hydromorphone HCl (Dilaudid) 0.5 mg IV Q2H PRN PRN Reason: Pain , Severe (7-10) Last Admin: 04/24/19 13:13 Dose: 0.5 mg Documented by: Lactated Ringer's (Lactated Ringers) 1,000 mls @ 100 mls/hr IV DIRECT RUTHIE Last Admin: 04/24/19 04:16 Dose: 100 mls/hr Documented by: Argatroban 250 mg/ Sodium (Chloride) 250 mls @ 13.88 mls/hr IV TITR RUTHIE; Protocol Loratadine (Claritin) 10 mg PO DAILY [facility] Last Admin: 04/24/19 09:49 Dose: 10 mg Documented by: Naloxone HCl (Narcan 0.4 Mg/1 Ml) 0.1 mg IV Q2MIN PRN PRN Reason: Res Rate </= 8 or 02 SAT < 92% Ondansetron HCl (Zofran) 4 mg IV Q8H PRN PRN Reason: Nausea And Vomiting Last Admin: 04/23/19 20:49 Dose: 4 mg Documented by: Oxycodone/Acetaminophen (Percocet 5/325) 2 tab PO Q6H PRN PRN Reason: Pain, Moderate (4-6) Last Admin: 04/24/19 09:49 Dose: 2 tab Documented by: Sodium Chloride (Sodium Chloride Flush Syringe 10 Ml) 10 ml IV BID [facility] Last Admin: 04/24/19 09:53 Dose: 10 ml Documented by: Sodium Chloride (Sodium Chloride Flush Syringe 10 Ml) 10 ml IV PRN PRN PRN Reason: LINE FLUSH Warfarin Sodium (Coumadin) 7.5 mg PO DAILY@1700 [facility] Physical Examination Vital signs: Vital Signs Temp Pulse Resp BP Pulse Ox 98.5 F 121 H 18 140/79 100 04/21/19 11:28 04/21/19 11:28 04/21/19 11:28 04/21/19 11:28 04/21/19 11:28 Results - Laboratory Findings CBC and BMP: 04/25/19 05:12 04/24/19 04:24 PT/INR, D-dimer PT 13.2 Sec. (12.2-14.9) 04/23/19 07:58 INR 1.03 (0.87-1.13) 04/23/19 07:58 Abnormal lab findings: Abnormal Labs 04/21/19 04/21/19 04/21/19 12:31 12:31 15:35 WBC RBC 2.69 L Hgb 6.8 L 6.3 L Hct 21.2 L 18.7 L* MCH 25 L RDW 16.8 H Plt Count 617 H 500 H Lymph % (Auto) Seg Neutrophils % Seg Neutrophils # INR APTT Activated Clotting Time Heparin Anti-Xa Level BUN 5 L Creatinine Glucose Iron AST Albumin 3.4 L Folate Crossmatch 04/21/19 04/21/19 04/22/19 15:35 15:45 08:16 WBC RBC Hgb Hct MCH RDW Plt Count Lymph % (Auto) Seg Neutrophils % Seg Neutrophils # INR 1.15 H APTT 73.3 H* Activated Clotting Time Heparin Anti-Xa Level BUN 6 L Creatinine 0.6 L Glucose Iron AST 41 H Albumin 2.9 L Folate Crossmatch See Detail 04/22/19 04/22/19 04/22/19 09:11 13:38 22:20 WBC RBC 3.06 L Hgb 8.0 L Hct 24.6 L MCH 26 L RDW 16.9 H Plt Count 532 H Lymph % (Auto) Seg Neutrophils % Seg Neutrophils # INR APTT Activated Clotting Time 180 H Heparin Anti-Xa Level < 0.10 L BUN Creatinine Glucose Iron AST Albumin Folate Crossmatch 04/23/19 04/23/19 04/23/19 06:13 07:58 07:58 WBC RBC Hgb 7.8 L Hct 24.4 L MCH RDW Plt Count 561 H Lymph % (Auto) Seg Neutrophils % Seg Neutrophils # INR APTT Activated Clotting Time Heparin Anti-Xa Level BUN Creatinine Glucose Iron 26 L AST Albumin Folate 4.02 L Crossmatch 04/23/19 04/23/19 04/23/19 07:58 11:15 11:36 WBC RBC Hgb 7.8 L Hct 24.4 L MCH RDW Plt Count 548 H Lymph % (Auto) Seg Neutrophils % Seg Neutrophils # INR APTT Activated Clotting Time 191 H 202 H Heparin Anti-Xa Level BUN Creatinine Glucose Iron AST Albumin Folate Crossmatch 04/23/19 04/23/19 04/23/19 12:06 15:47 19:21 WBC RBC Hgb 7.0 L Hct 21.3 L MCH RDW Plt Count Lymph % (Auto) Seg Neutrophils % Seg Neutrophils # INR APTT 85.3 H* Activated Clotting Time 208 H Heparin Anti-Xa Level BUN Creatinine Glucose Iron AST Albumin Folate Crossmatch 04/24/19 04/24/19 04/24/19 04:24 04:24 07:35 WBC 15.6 H RBC 2.50 L Hgb 6.6 L Hct 20.1 L MCH 26 L RDW 17.7 H Plt Count 502 H Lymph % (Auto) 11.5 L Seg Neutrophils % 83.2 H Seg Neutrophils # 12.9 H INR APTT 66.0 H* Activated Clotting Time Heparin Anti-Xa Level BUN Creatinine Glucose 105 H Iron AST Albumin Folate Crossmatch 04/24/19 10:00 WBC RBC Hgb 6.6 L Hct 20.3 L MCH RDW Plt Count Lymph % (Auto) Seg Neutrophils % Seg Neutrophils # INR APTT Activated Clotting Time Heparin Anti-Xa Level BUN Creatinine Glucose Iron AST Albumin Folate Crossmatch
[2019-04-24] MEDS: COUMADIN PO SCH (16:05)
--- NOTE | 2019-04-24 16:11 | Progress Note ---
Assessment and Plan 33-year-old female with acute limb ischemia of the right lower extremity requiring embolectomy 2 with AngioJet thrombectomy. Patient's original presentation and recurrent thrombosis is highly concerning for hypercoagulable condition. Will need hematology follow-up. Will need anticoagulation, probably for life. Started warfarin. Recommend aspirin for life as well. Patient has mild foot drop and some numbness of her toes with the foot drop unchanged from presentation upon further questioning, and the numbness of her toes unchanged from her first reocclusion upon further questioning. Nothing has worsened overnight. These are stable at this time. The patient has no bulging of compartments but does have some posterior calf discomfort. Told patient to elevate her leg if she is not walking. Palpable pedal pulses. Discussed transitioning from IV to oral pain medications. Discussed with patient that if she has any change of her sensory or motor findings to contact her nurse will contact us immediately. Subjective Date of service: 04/24/19 Interval history: Patient reports having foot drop since original presentation. She has some toe numbness which occurred after her first operative occlusion and has not worsens. She has palpable pedal pulses of the right lower extremity. There is no tension of the anterior or lateral compartments. She has some discomfort of her posterior calf without evidence of bulging. Incision with bandage overlying it. Objective - Constitutional Vitals: Vital Signs - 12hr 04/24/19 04/24/19 04/24/19 07:10 08:00 10:57 Temperature 98.1 F Pulse Rate Respiratory Rate Blood Pressure O2 Sat by Pulse 96 95 Oximetry 04/24/19 04/24/19 11:08 12:00 Temperature 97.6 F 98.2 F Pulse Rate 103 H Respiratory 18 Rate Blood Pressure 120/72 O2 Sat by Pulse 98 Oximetry General appearance: Present: no acute distress - EENT Eyes: EOM intact ENT: hearing intact - Respiratory Respiratory effort: normal Extremities: abnormal (see subjective) - Psychiatric Psychiatric: appropriate mood/affect, cooperative - Labs CBC & Chem 7: 04/24/19 10:00 04/24/19 04:24 Labs: Abnormal lab results 04/21/19 04/23/19 04/23/19 Range/Units 15:45 15:47 19:21 WBC (4.5-11.0) K/mm3 RBC (3.65-5.03) M/mm3 Hgb 7.0 L (10.1-14.3) gm/dl Hct 21.3 L (30.3-42.9) % MCH (28-32) pg RDW (13.2-15.2) % Plt Count (140-440) K/mm3 Lymph % (Auto) (13.4-35.0) % Seg Neutrophils % (40.0-70.0) % Seg Neutrophils # (1.8-7.7) K/mm3 APTT 85.3 H* (24.2-36.6) Sec. Glucose (65-100) mg/dL Crossmatch See Detail 04/24/19 04/24/19 04/24/19 Range/Units 04:24 04:24 07:35 WBC 15.6 H (4.5-11.0) K/mm3 RBC 2.50 L (3.65-5.03) M/mm3 Hgb 6.6 L (10.1-14.3) gm/dl Hct 20.1 L (30.3-42.9) % MCH 26 L (28-32) pg RDW 17.7 H (13.2-15.2) % Plt Count 502 H (140-440) K/mm3 Lymph % (Auto) 11.5 L (13.4-35.0) % Seg Neutrophils % 83.2 H (40.0-70.0) % Seg Neutrophils # 12.9 H (1.8-7.7) K/mm3 APTT 66.0 H* (24.2-36.6) Sec. Glucose 105 H (65-100) mg/dL Crossmatch 04/24/19 Range/Units 10:00 WBC (4.5-11.0) K/mm3 RBC (3.65-5.03) M/mm3 Hgb 6.6 L (10.1-14.3) gm/dl Hct 20.3 L (30.3-42.9) % MCH (28-32) pg RDW (13.2-15.2) % Plt Count (140-440) K/mm3 Lymph % (Auto) (13.4-35.0) % Seg Neutrophils % (40.0-70.0) % Seg Neutrophils # (1.8-7.7) K/mm3 APTT (24.2-36.6) Sec. Glucose (65-100) mg/dL Crossmatch Medications & Allergies - Medications Allergies/Adverse Reactions: Allergies No Known Allergies Allergy (Unverified 12/16/14 00:11) Home Medications: Home Medications Medication Instructions Recorded Confirmed Last Taken Type Fluticasone Propionate [Flonase] 2 sprays NS QDAY #1 bottle 12/16/14 Unknown Rx Loratadine [Claritin] 10 mg PO DAILY #30 tablet 12/16/14 Unknown Rx predniSONE [Deltasone] 40 mg PO QDAY #10 tab 12/16/14 Unknown Rx Active Medications: Generic Name Dose Route Start Last Admin Trade Name Freq PRN Reason Stop Dose Admin Acetaminophen 650 mg 04/21/19 15:12 Tylenol PO Q4H PRN Pain MILD(1-3)/Fever >100.5/VIVAR Albuterol 2.5 mg 04/21/19 15:12 Proventil IH Q4HRT PRN Shortness Of Breath Aspirin 81 mg 04/23/19 10:00 04/24/19 09:49 Halfprin Ec PO 81 mg QDAY RUTHIE Administration Fluticasone Propionate 50 mcg 04/22/19 10:00 04/24/19 11:19 Flonase NS 50 mcg QDAY RUTHIE Administration Folic Acid 1 mg 04/24/19 13:00 04/24/19 13:13 Folvite PO 1 mg QDAY RUTHIE Administration Hydromorphone HCl 0.5 mg 04/23/19 16:09 04/24/19 13:13 Dilaudid IV 0.5 mg Q2H PRN Administration Pain , Severe (7-10) Lactated Ringer's 1,000 mls @ 100 mls/hr 04/22/19 11:00 04/24/19 04:16 Lactated Ringers IV 100 mls/hr DIRECT RUTHIE Administration Argatroban 250 mg/ Sodium 250 mls @ 13.88 mls/hr 04/23/19 12:00 Chloride IV TITR RUTHIE Protocol 2 MCG/KG/MIN Loratadine 10 mg 04/22/19 10:00 04/24/19 09:49 Claritin PO 10 mg DAILY RUTHIE Administration Naloxone HCl 0.1 mg 04/22/19 14:18 Narcan 0.4 Mg/1 Ml IV Q2MIN PRN Res Rate </= 8 or 02 SAT < 92% Ondansetron HCl 4 mg 04/21/19 15:12 04/23/19 20:49 Zofran IV 4 mg Q8H PRN Administration Nausea And Vomiting Oxycodone/Acetaminophen 2 tab 04/23/19 00:15 04/24/19 16:07 Percocet 5/325 PO 2 tab Q6H PRN Administration Pain, Moderate (4-6) Sodium Chloride 10 ml 04/21/19 22:00 04/24/19 09:53 Sodium Chloride Flush Syringe 10 Ml IV 10 ml BID RUTHIE Administration Sodium Chloride 10 ml 04/21/19 15:12 Sodium Chloride Flush Syringe 10 Ml IV PRN PRN LINE FLUSH Warfarin Sodium 7.5 mg 04/24/19 17:00 04/24/19 16:05 Coumadin PO 7.5 mg DAILY@1700 RUTHIE Administration
[2019-04-24 18:02] LABS: INR 2.23 (0.87-1.13)
--- NOTE | 2019-04-24 18:09 | Hem/Onc Progress Note ---
Assessment and Plan 1. Right arterial thrombus. History of travel present. The patient says prior to the [place] trip she had right leg pain. 2. Anemia. The patient says she has been anemic for a long time, low folate, low iron. 3. Status post vascular team procedure. 4. The patient's right foot was cold. 5. Transfusion support as needed. 6. I discussed with patient regarding quitting smoking. 7. Obesity. h/o gastric sx - 2016 IV iron folate on argatroban eliquis an option as oral agent will do hypercoag Ix as OP - Patient Problems (1) Anemia Current Visit: Yes Status: Acute Qualifiers: Anemia type: iron deficiency (2) Popliteal artery embolism, right Current Visit: Yes Status: Acute Subjective Date of service: 04/24/19 Principal diagnosis: anemia - arterial embolus Interval history: leg pain better Objective - Exam Narrative Exam: Pain - none General appearance - breathing better Performance status limited self care Eyes - no icterus, pallor + ENT - no bleeding LNs cervical not palpable Neck - no LN Respiratory Normal Breath sounds - CTA CVS S1 S2 + Extremities no calf tenderness General GI Soft Rectal deferred female - deferred Skin warm Musculoskeletal moving extremitites Neurologically awake - oriented - Constitutional Vitals: Last Vital Signs Temp 98.0 F 04/24/19 16:00 Pulse 106 H 04/24/19 11:55 Resp 20 04/24/19 11:55 BP 128/78 04/24/19 11:55 Pulse Ox 98 04/24/19 11:55 - Labs Lab Results: Laboratory Results - last 24 hr 04/21/19 04/23/19 04/24/19 15:45 19:21 04:24 WBC 15.6 H RBC 2.50 L Hgb 6.6 L Hct 20.1 L MCV 80 MCH 26 L MCHC 33 RDW 17.7 H Plt Count 502 H Lymph % (Auto) 11.5 L [place] % (Auto) 4.9 Eos % (Auto) 0.0 Baso % (Auto) 0.4 Lymph # 1.8 [place] # 0.8 Eos # 0.0 Baso # 0.1 Seg Neutrophils % 83.2 H Seg Neutrophils # 12.9 H PT INR APTT 85.3 H* Sodium Potassium Chloride Carbon Dioxide Anion Gap BUN Creatinine Estimated GFR BUN/Creatinine Ratio Glucose Calcium Blood Type B POSITIVE Antibody Screen Negative Crossmatch See Detail 04/24/19 04/24/19 04/24/19 04:24 07:35 10:00 WBC RBC Hgb 6.6 L Hct 20.3 L MCV MCH MCHC RDW Plt Count Lymph % (Auto) [place] % (Auto) Eos % (Auto) Baso % (Auto) Lymph # [place] # Eos # Baso # Seg Neutrophils % Seg Neutrophils # PT INR APTT 66.0 H* Sodium 141 Potassium 4.8 D Chloride 105.5 Carbon Dioxide 27 Anion Gap 13 BUN 9 Creatinine 0.9 Estimated GFR > 60 BUN/Creatinine Ratio 10 Glucose 105 H Calcium 8.6 Blood Type Antibody Screen Crossmatch 04/24/19 16:42 WBC RBC Hgb Hct MCV MCH MCHC RDW Plt Count Lymph % (Auto) [place] % (Auto) Eos % (Auto) Baso % (Auto) Lymph # [place] # Eos # Baso # Seg Neutrophils % Seg Neutrophils # PT 24.3 H INR 2.23 H APTT Sodium Potassium Chloride Carbon Dioxide Anion Gap BUN Creatinine Estimated GFR BUN/Creatinine Ratio Glucose Calcium Blood Type Antibody Screen Crossmatch Medications & Allergies - Medications Allergies/Adverse Reactions: Allergies No Known Allergies Allergy (Unverified 12/16/14 00:11) Home Medications: Home Medications Medication Instructions Recorded Confirmed Last Taken Type Fluticasone Propionate [Flonase] 2 sprays NS QDAY #1 bottle 12/16/14 Unknown Rx Loratadine [Claritin] 10 mg PO DAILY #30 tablet 12/16/14 Unknown Rx RX: predniSONE [Deltasone] 40 mg PO QDAY #10 tab 12/16/14 Unknown Rx Active Medications: Generic Name Dose Route Start Last Admin Trade Name Freq PRN Reason Stop Dose Admin Acetaminophen 650 mg 04/21/19 15:12 Tylenol PO Q4H PRN Pain MILD(1-3)/Fever >100.5/VIVAR Albuterol 2.5 mg 04/21/19 15:12 Proventil IH Q4HRT PRN Shortness Of Breath Aspirin 81 mg 04/23/19 10:00 04/24/19 09:49 Halfprin Ec PO 81 mg QDAY RUTHIE Administration Fluticasone Propionate 50 mcg 04/22/19 10:00 04/24/19 11:19 Flonase NS 50 mcg QDAY RUTHIE Administration Folic Acid 1 mg 04/24/19 13:00 04/24/19 13:13 Folvite PO 1 mg QDAY RUTHIE Administration Hydromorphone HCl 0.5 mg 04/23/19 16:09 04/24/19 13:13 Dilaudid IV 0.5 mg Q2H PRN Administration Pain , Severe (7-10) Lactated Ringer's 1,000 mls @ 100 mls/hr 04/22/19 11:00 04/24/19 04:16 Lactated Ringers IV 100 mls/hr DIRECT RUTHIE Administration Argatroban 250 mg/ Sodium 250 mls @ 13.88 mls/hr 04/23/19 12:00 Chloride IV TITR RUTHIE Protocol 2 MCG/KG/MIN Loratadine 10 mg 04/22/19 10:00 04/24/19 09:49 Claritin PO 10 mg DAILY RUTHIE Administration Naloxone HCl 0.1 mg 04/22/19 14:18 Narcan 0.4 Mg/1 Ml IV Q2MIN PRN Res Rate </= 8 or 02 SAT < 92% Ondansetron HCl 4 mg 04/21/19 15:12 04/23/19 20:49 Zofran IV 4 mg Q8H PRN Administration Nausea And Vomiting Oxycodone/Acetaminophen 2 tab 04/23/19 00:15 04/24/19 16:07 Percocet 5/325 PO 2 tab Q6H PRN Administration Pain, Moderate (4-6) Sodium Chloride 10 ml 04/21/19 22:00 04/24/19 09:53 Sodium Chloride Flush Syringe 10 Ml IV 10 ml BID RUTHIE Administration Sodium Chloride 10 ml 04/21/19 15:12 Sodium Chloride Flush Syringe 10 Ml IV PRN PRN LINE FLUSH Warfarin Sodium 7.5 mg 04/24/19 17:00 04/24/19 16:05 Coumadin PO 7.5 mg DAILY@1700 RUTHIE Administration
[2019-04-24] MEDS: ARGATROBAN 250 MG in NACL 0.9% 250ML 247.5 ML IV SCH (19:13)
[2019-04-25] MEDS: DILAUDID IV PRN ×3 (00:56→18:58)
--- NOTE | 2019-04-25 01:32 | Consultation ---
REFERRING PHYSICIAN: Dr. Shields. REASON FOR CONSULTATION: Arterial thrombus, right leg. HISTORY OF PRESENT ILLNESS: I saw the patient, a 33-year-old female in the medical floor. She has history of smoking, mention of 1 pack over 3 days, history of anemia. She recently went to [place] for cosmetic surgery and patient says she has been having leg pain prior to that. A few days ago pain worsened. She came to the hospital, was found to have popliteal artery occlusion. The vascular team did procedure. The patient was placed on heparin drip prior to the same. At this time, patient is complaining of pain. The right leg is slightly cold compared to left. No headache, no visual disturbances. No ear discharge. No fever. No chest pain, no shortness of breath, no palpitations, no hematemesis, no hematochezia. PAST MEDICAL HISTORY: Includes obesity. PAST SURGICAL HISTORY: Bowel surgery. The patient say gastric surgery. SOCIAL HISTORY: Single, smoking present. FAMILY HISTORY: Diabetes and hypertension. ALLERGIES: None. HOME MEDICATIONS: Include Flonase, prednisone. I have been consulted because of anemia. PHYSICAL EXAMINATION: VITAL SIGNS: Temperature 97, pulse 100, respirations 14, BP 143/92. HEENT: Pallor present, no icterus. NECK: No neck lymph nodes. HEART: S1, S2. LUNGS: Clear to auscultation. ABDOMEN: Soft. EXTREMITIES: Right leg slightly cold. NEUROLOGIC: Alert, awake, oriented. LABORATORY DATA: White cell 10, hemoglobin 8, MCV 80, platelets 532, potassium 3.9, creatinine 0.6, calcium 8.5, bilirubin 0.5. B12 466, folate 4, serum iron 26. ASSESSMENT: 1. Right arterial thrombus. History of travel present. The patient says prior to the [place] trip she had right leg pain. 2. Anemia. The patient says she has been anemic for a long time, low folate, low iron. 3. Status post vascular team procedure. 4. The patient's right foot is cold. I spoke to Dr. Shields regarding heparin or other anticoagulation. 5. Transfusion support as needed. 6. I discussed with patient regarding quitting smoking. 7. Obesity. later pt mentioned gastric surgery - ? bypass sx JOB# [id number] NM/NTS MTDD
[2019-04-25] MEDS: PERCOCET 5/325 PO PRN ×4 (04:32→21:43)
[2019-04-25 05:30] LABS: Basophils % (Auto) 0.4 % (0.0-1.8); Eosinophils # (Auto) 0.1 K/mm3 (0.0-0.4); Eosinophils % (Auto) 0.7 % (0.0-4.3); Hemoglobin 8.2 gm/dl (10.1-14.3); Lymphocytes # (Auto) 2.2 K/mm3 (1.2-5.4); Lymphocytes % (Auto) 18.6 % (13.4-35.0); Monocytes # (Auto) 0.7 K/mm3 (0.0-0.8); Monocytes % (Auto) 5.9 % (0.0-7.3)
[2019-04-25 05:39] LABS: INR 2.04 (0.87-1.13)
[2019-04-25 05:40] LABS: Hematocrit 25.2 % (30.3-42.9); Mean Corpuscular HGB Conc 33 % (30-34); Mean Corpuscular Volume 84 fl (79-97); Platelet Count 447 K/mm3 (140-440); Red Blood Count 3.02 M/mm3 (3.65-5.03); Red Cell Distribution Width 18.2 % (13.2-15.2)
[2019-04-25] MEDS ORDERED: DILAUDID IM PRN (09:56)
--- NOTE | 2019-04-25 10:04 | Progress Note ---
Subjective Date of service: 04/25/19 Interval history: s/p right leg revascularization patient doing well still has some numbness in the toes, motor intact right foot warm and well perfused palpable pedal pulses pain improved, adjusted pain meds encourage ambulation, PT ordered incision c/d/i with sunday continue ASA and coumadin Hgb reviewed started miralax Objective - Constitutional Vitals: Vital Signs - 12hr 04/24/19 04/24/19 04/25/19 23:00 23:39 00:00 Temperature 98.5 F Pulse Rate 88 86 Pulse Rate [ Left Dorsalis Pedis] Respiratory 17 22 Rate Blood Pressure 124/68 128/80 O2 Sat by Pulse 97 90 Oximetry 04/25/19 04/25/19 04/25/19 01:00 02:00 03:00 Temperature Pulse Rate 91 H 86 87 Pulse Rate [ Left Dorsalis Pedis] Respiratory 18 16 16 Rate Blood Pressure 126/86 119/77 119/77 O2 Sat by Pulse 99 99 98 Oximetry 04/25/19 04/25/19 04/25/19 04:00 05:00 06:00 Temperature 98.6 F Pulse Rate 84 84 81 Pulse Rate [ Left Dorsalis Pedis] Respiratory 13 13 13 Rate Blood Pressure 125/83 141/85 123/71 O2 Sat by Pulse 99 100 97 Oximetry 04/25/19 04/25/19 04/25/19 07:00 07:13 08:00 Temperature 98.5 F Pulse Rate 77 90 Pulse Rate [ 102 H Left Dorsalis Pedis] Respiratory 14 22 Rate Blood Pressure 129/79 129/79 O2 Sat by Pulse 97 100 100 Oximetry - Labs CBC & Chem 7: 04/25/19 05:12 04/24/19 04:24 Labs: Abnormal lab results 04/21/19 04/24/19 04/24/19 Range/Units 15:45 10:00 16:42 WBC (4.5-11.0) K/mm3 RBC (3.65-5.03) M/mm3 Hgb 6.6 L (10.1-14.3) gm/dl Hct 20.3 L (30.3-42.9) % MCH (28-32) pg RDW (13.2-15.2) % Plt Count (140-440) K/mm3 Seg Neutrophils % (40.0-70.0) % Seg Neutrophils # (1.8-7.7) K/mm3 PT 24.3 H (12.2-14.9) Sec. INR 2.23 H (0.87-1.13) APTT (24.2-36.6) Sec. Crossmatch See Detail 04/24/19 04/24/19 04/25/19 Range/Units 16:42 21:00 05:12 WBC 11.6 H (4.5-11.0) K/mm3 RBC 3.02 L (3.65-5.03) M/mm3 Hgb 8.2 L (10.1-14.3) gm/dl Hct 25.2 L (30.3-42.9) % MCH 27 L (28-32) pg RDW 18.2 H (13.2-15.2) % Plt Count 447 H (140-440) K/mm3 Seg Neutrophils % 74.4 H (40.0-70.0) % Seg Neutrophils # 8.6 H (1.8-7.7) K/mm3 PT (12.2-14.9) Sec. INR (0.87-1.13) APTT 69.4 H* 65.5 H* (24.2-36.6) Sec. Crossmatch 04/25/19 04/25/19 Range/Units 05:12 05:12 WBC (4.5-11.0) K/mm3 RBC (3.65-5.03) M/mm3 Hgb (10.1-14.3) gm/dl Hct (30.3-42.9) % MCH (28-32) pg RDW (13.2-15.2) % Plt Count (140-440) K/mm3 Seg Neutrophils % (40.0-70.0) % Seg Neutrophils # (1.8-7.7) K/mm3 PT 22.6 H (12.2-14.9) Sec. INR 2.04 H (0.87-1.13) APTT 55.5 H (24.2-36.6) Sec. Crossmatch Medications & Allergies - Medications Allergies/Adverse Reactions: Allergies No Known Allergies Allergy (Unverified 12/16/14 00:11) Home Medications: Home Medications Medication Instructions Recorded Confirmed Last Taken Type Fluticasone Propionate [Flonase] 2 sprays NS QDAY #1 bottle 12/16/14 Unknown Rx Loratadine [Claritin] 10 mg PO DAILY #30 tablet 12/16/14 Unknown Rx predniSONE [Deltasone] 40 mg PO QDAY #10 tab 12/16/14 Unknown Rx Active Medications: Generic Name Dose Route Start Last Admin Trade Name Freq PRN Reason Stop Dose Admin Acetaminophen 650 mg 04/21/19 15:12 Tylenol PO Q4H PRN Pain MILD(1-3)/Fever >100.5/VIVAR Albuterol 2.5 mg 04/21/19 15:12 Proventil IH Q4HRT PRN Shortness Of Breath Aspirin 81 mg 04/23/19 10:00 04/24/19 09:49 Halfprin Ec PO 81 mg QDAY RUTHIE Administration Fluticasone Propionate 50 mcg 04/22/19 10:00 04/24/19 11:19 Flonase NS 50 mcg QDAY RUTHIE Administration Folic Acid 1 mg 04/24/19 13:00 04/24/19 13:13 Folvite PO 1 mg QDAY RUTHIE Administration Hydromorphone HCl 0.5 mg 04/25/19 09:56 Dilaudid IM Q4H PRN Pain , Severe (7-10) Lactated Ringer's 1,000 mls @ 100 mls/hr 04/22/19 11:00 04/24/19 21:46 Lactated Ringers IV 100 mls/hr DIRECT RUTHIE Administration Argatroban 250 mg/ Sodium 250 mls @ 13.88 mls/hr 04/23/19 12:00 04/24/19 21:34 Chloride IV 2 mcg/kg/min TITR RUTHIE 13.88 mls/hr Titration Protocol 2 MCG/KG/MIN Loratadine 10 mg 04/22/19 10:00 04/24/19 09:49 Claritin PO 10 mg DAILY RUTHIE Administration Naloxone HCl 0.1 mg 04/22/19 14:18 Narcan 0.4 Mg/1 Ml IV Q2MIN PRN Res Rate </= 8 or 02 SAT < 92% Ondansetron HCl 4 mg 04/21/19 15:12 04/23/19 20:49 Zofran IV 4 mg Q8H PRN Administration Nausea And Vomiting Oxycodone/Acetaminophen 2 tab 04/25/19 09:52 Percocet 5/325 PO Q4H PRN Pain, Moderate (4-6) Polyethylene Glycol 17 gm 04/25/19 10:00 Miralax 3350 PO QDAY RUTHIE Sodium Chloride 10 ml 04/21/19 22:00 04/24/19 21:45 Sodium Chloride Flush Syringe 10 Ml IV 10 ml BID RUTHIE Administration Sodium Chloride 10 ml 04/21/19 15:12 Sodium Chloride Flush Syringe 10 Ml IV PRN PRN LINE FLUSH Warfarin Sodium 7.5 mg 04/24/19 17:00 04/24/19 16:05 Coumadin PO 7.5 mg DAILY@1700 RUTHIE Administration
[2019-04-25] MEDS: FOLVITE PO SCH (10:33)
[2019-04-25] MEDS: HALFPRIN EC PO SCH (10:33)
[2019-04-25] MEDS: CLARITIN PO SCH (10:33)
[2019-04-25] MEDS: SODIUM CHLORIDE FLUSH SYRINGE 10 ML IV SCH ×2 (10:35→22:00)
[2019-04-25] MEDS: FLONASE NS SCH (10:36)
--- NOTE | 2019-04-25 11:29 | Progress Note ---
Assessment and Plan Acute limb ischemia Popliteal artery embolism, right Obesity Tobacco abuse Anemia present on arrival - continue Argatroban - coumadin bridge vs DOAC per vascular team - prn H&H - tobacco abstinence strongly counseled again at bedside - weight loss counseled - hematology evaluation appropriate - continue GI prophylaxis - continue other care per attending / other consultants ... re-evaluate in am & prn I have spent ( >35 ) minutes with the patient w/ >50% of the time spent counseling and/or coordinating care for this patient. Counseling topics and/or how time was spent coordinating patient's care is outlined in the impression and plan above. Subjective Date of service: 04/25/19 Principal diagnosis: Ac. limb ischemia; R. Popliteal artery embolism; Obesity; Tobacco abuse Interval history: Patient is seen today for: Acute limb ischemia; Popliteal artery embolism, right; Obesity; Tobacco abuse; Anemia present on arrival Seen and examined at bedside; 24hour events reviewed; nursing and respiratory care staff consulted; no adverse overnight events reported to me; resting peacefully in bed; denies acute chest pains or palpitations; No hemoptysis or other bleeding; Afebrile Objective Vital Signs - 12hr 04/24/19 04/25/19 04/25/19 23:39 00:00 01:00 Temperature 98.5 F Pulse Rate 86 91 H Pulse Rate [ Left Dorsalis Pedis] Respiratory 22 18 Rate Blood Pressure 128/80 126/86 O2 Sat by Pulse 90 99 Oximetry 04/25/19 04/25/19 04/25/19 02:00 03:00 04:00 Temperature 98.6 F Pulse Rate 86 87 84 Pulse Rate [ Left Dorsalis Pedis] Respiratory 16 16 13 Rate Blood Pressure 119/77 119/77 125/83 O2 Sat by Pulse 99 98 99 Oximetry 04/25/19 04/25/19 04/25/19 05:00 06:00 07:00 Temperature Pulse Rate 84 81 77 Pulse Rate [ Left Dorsalis Pedis] Respiratory 13 13 14 Rate Blood Pressure 141/85 123/71 129/79 O2 Sat by Pulse 100 97 97 Oximetry 04/25/19 04/25/19 07:13 08:00 Temperature 98.5 F Pulse Rate 90 Pulse Rate [ 102 H Left Dorsalis Pedis] Respiratory 22 Rate Blood Pressure 129/79 O2 Sat by Pulse 100 100 Oximetry Constitutional: no acute distress, alert, other (young obese AAF, normocephalic and atraumatic) Eyes: non-icteric ENT: oropharynx moist Neck: supple, no lymphadenopathy Effort: normal Ascultation: Bilateral: clear Percussion: Bilateral: not dull Cardiovascular: regular rate and rhythm Gastrointestinal: normoactive bowel sounds, soft, non-tender, non-distended Integumentary: rash (mild erythema to RL ext) Extremities: no cyanosis, pulses normal, no ischemia or petechiae, edema Neurologic: normal mental status, non-focal exam, pupils equal and round, CN II- XII normal Psychiatric: mood appropriate, affect normal CBC and BMP: 05/01/19 07:53 04/27/19 04:20 ABG, PT/INR, D-dimer: PT/INR, D-dimer PT 22.6 Sec. (12.2-14.9) H 04/25/19 05:12 INR 2.04 (0.87-1.13) H 04/25/19 05:12 Abnormal lab findings: Abnormal Labs 04/21/19 04/21/19 04/21/19 12:31 12:31 15:35 WBC RBC 2.69 L Hgb 6.8 L 6.3 L Hct 21.2 L 18.7 L* MCH 25 L RDW 16.8 H Plt Count 617 H 500 H Lymph % (Auto) Seg Neutrophils % Seg Neutrophils # PT INR APTT Activated Clotting Time Heparin Anti-Xa Level BUN 5 L Creatinine Glucose Iron AST Albumin 3.4 L Folate Crossmatch 04/21/19 04/21/19 04/22/19 15:35 15:45 08:16 WBC RBC Hgb Hct MCH RDW Plt Count Lymph % (Auto) Seg Neutrophils % Seg Neutrophils # PT INR 1.15 H APTT 73.3 H* Activated Clotting Time Heparin Anti-Xa Level BUN 6 L Creatinine 0.6 L Glucose Iron AST 41 H Albumin 2.9 L Folate Crossmatch See Detail 04/22/19 04/22/19 04/22/19 09:11 13:38 22:20 WBC RBC 3.06 L Hgb 8.0 L Hct 24.6 L MCH 26 L RDW 16.9 H Plt Count 532 H Lymph % (Auto) Seg Neutrophils % Seg Neutrophils # PT INR APTT Activated Clotting Time 180 H Heparin Anti-Xa Level < 0.10 L BUN Creatinine Glucose Iron AST Albumin Folate Crossmatch 04/23/19 04/23/19 04/23/19 06:13 07:58 07:58 WBC RBC Hgb 7.8 L Hct 24.4 L MCH RDW Plt Count 561 H Lymph % (Auto) Seg Neutrophils % Seg Neutrophils # PT INR APTT Activated Clotting Time Heparin Anti-Xa Level BUN Creatinine Glucose Iron 26 L AST Albumin Folate 4.02 L Crossmatch 04/23/19 04/23/19 04/23/19 07:58 11:15 11:36 WBC RBC Hgb 7.8 L Hct 24.4 L MCH RDW Plt Count 548 H Lymph % (Auto) Seg Neutrophils % Seg Neutrophils # PT INR APTT Activated Clotting Time 191 H 202 H Heparin Anti-Xa Level BUN Creatinine Glucose Iron AST Albumin Folate Crossmatch 04/23/19 04/23/19 04/23/19 12:06 15:47 19:21 WBC RBC Hgb 7.0 L Hct 21.3 L MCH RDW Plt Count Lymph % (Auto) Seg Neutrophils % Seg Neutrophils # PT INR APTT 85.3 H* Activated Clotting Time 208 H Heparin Anti-Xa Level BUN Creatinine Glucose Iron AST Albumin Folate Crossmatch 04/24/19 04/24/19 04/24/19 04:24 04:24 10:00 WBC 15.6 H RBC 2.50 L Hgb 6.6 L 6.6 L Hct 20.1 L 20.3 L MCH 26 L RDW 17.7 H Plt Count 502 H Lymph % (Auto) 11.5 L Seg Neutrophils % 83.2 H Seg Neutrophils # 12.9 H PT INR APTT Activated Clotting Time Heparin Anti-Xa Level BUN Creatinine Glucose 105 H Iron AST Albumin Folate Crossmatch 04/24/19 04/24/19 04/24/19 16:42 16:42 21:00 WBC RBC Hgb Hct MCH RDW Plt Count Lymph % (Auto) Seg Neutrophils % Seg Neutrophils # PT 24.3 H INR 2.23 H APTT 69.4 H* 65.5 H* Activated Clotting Time Heparin Anti-Xa Level BUN Creatinine Glucose Iron AST Albumin Folate Crossmatch 04/25/19 04/25/19 04/25/19 05:12 05:12 05:12 WBC 11.6 H RBC 3.02 L Hgb 8.2 L Hct 25.2 L MCH 27 L RDW 18.2 H Plt Count 447 H Lymph % (Auto) Seg Neutrophils % 74.4 H Seg Neutrophils # 8.6 H PT 22.6 H INR 2.04 H APTT 55.5 H Activated Clotting Time Heparin Anti-Xa Level BUN Creatinine Glucose Iron AST Albumin Folate Crossmatch Allied health notes reviewed: nursing
--- NOTE | 2019-04-25 12:52 | Progress Note ---
Assessment and Plan / Popliteal artery embolism, right with LE ischemia s/p Heparin drip, Vascular surgery consulted, s/p Right Femoal-popliteal Embolectomy on 04/22 repeat US showed rethrombosis - taken to OR emergenty for revascularization on 04/24/19 On argatobran drip today, plan to place on coumadin - monitor INR / Nicotine abuse Smoking cessation counseling done, supportive care. Nicotine patch if needed / Obesity (BMI 30-39.9) Balanced diet, increased physical activity at discharge, / Anemia, POA Likely acute on chronic s/p 4 units of PRBC transfusion, no active bleeding / DVT prophylaxis SCD to BLE while in bed, therapeutic anticoagulation. Subjective Date of service: 04/25/19 Interval history: Patient with c/o RLE pain and numbness in the right leg But symptoms are much better able to stand and ambulate today No active bleeding PT recommended no home needs Transfer to tele Objective - Exam Narrative Exam: General appearance: Present: no acute distress, obese - EENT Eyes: PERRL, EOM intact ENT: hearing intact, clear oral mucosa Ears: bilateral: normal - Neck Neck: supple, normal ROM - Respiratory Respiratory effort: normal Respiratory: bilateral: CTA - Cardiovascular Rhythm: regular Heart Sounds: Present: S1 & S2. Absent: gallop, rub Extremities: normal color Extremity abnormal: reduced edema (RLE), pulses + (on RLE), no tenderness (RLE) - Gastrointestinal General gastrointestinal: Present: soft, non-tender, non-distended, normal bowel sounds - Integumentary Integumentary: clear, warm, dry, no erythema - Musculoskeletal Musculoskeletal: 1, strength equal bilaterally - Neurologic Neurologic: moves all extremities - Psychiatric Psychiatric: memory intact, appropriate mood/affect, intact judgment & insight - Constitutional Vitals: Vital Signs - 12hr 04/25/19 04/25/19 04/25/19 01:00 02:00 03:00 Temperature Pulse Rate 91 H 86 87 Pulse Rate [ Left Dorsalis Pedis] Respiratory 18 16 16 Rate Blood Pressure 126/86 119/77 119/77 O2 Sat by Pulse 99 99 98 Oximetry 04/25/19 04/25/19 04/25/19 04:00 05:00 06:00 Temperature 98.6 F Pulse Rate 84 84 81 Pulse Rate [ Left Dorsalis Pedis] Respiratory 13 13 13 Rate Blood Pressure 125/83 141/85 123/71 O2 Sat by Pulse 99 100 97 Oximetry 04/25/19 04/25/19 04/25/19 07:00 07:13 08:00 Temperature 98.5 F Pulse Rate 77 90 Pulse Rate [ 102 H Left Dorsalis Pedis] Respiratory 14 22 Rate Blood Pressure 129/79 129/79 O2 Sat by Pulse 97 100 100 Oximetry 04/25/19 11:54 Temperature 98.8 F Pulse Rate Pulse Rate [ Left Dorsalis Pedis] Respiratory Rate Blood Pressure O2 Sat by Pulse Oximetry - Labs CBC & Chem 7: 04/25/19 05:12 04/24/19 04:24 Labs: Abnormal lab results 04/21/19 04/24/19 04/24/19 Range/Units 15:45 16:42 16:42 WBC (4.5-11.0) K/mm3 RBC (3.65-5.03) M/mm3 Hgb (10.1-14.3) gm/dl Hct (30.3-42.9) % MCH (28-32) pg RDW (13.2-15.2) % Plt Count (140-440) K/mm3 Seg Neutrophils % (40.0-70.0) % Seg Neutrophils # (1.8-7.7) K/mm3 PT 24.3 H (12.2-14.9) Sec. INR 2.23 H (0.87-1.13) APTT 69.4 H* (24.2-36.6) Sec. Crossmatch See Detail 04/24/19 04/25/19 04/25/19 Range/Units 21:00 05:12 05:12 WBC 11.6 H (4.5-11.0) K/mm3 RBC 3.02 L (3.65-5.03) M/mm3 Hgb 8.2 L (10.1-14.3) gm/dl Hct 25.2 L (30.3-42.9) % MCH 27 L (28-32) pg RDW 18.2 H (13.2-15.2) % Plt Count 447 H (140-440) K/mm3 Seg Neutrophils % 74.4 H (40.0-70.0) % Seg Neutrophils # 8.6 H (1.8-7.7) K/mm3 PT 22.6 H (12.2-14.9) Sec. INR 2.04 H (0.87-1.13) APTT 65.5 H* (24.2-36.6) Sec. Crossmatch 04/25/19 Range/Units 05:12 WBC (4.5-11.0) K/mm3 RBC (3.65-5.03) M/mm3 Hgb (10.1-14.3) gm/dl Hct (30.3-42.9) % MCH (28-32) pg RDW (13.2-15.2) % Plt Count (140-440) K/mm3 Seg Neutrophils % (40.0-70.0) % Seg Neutrophils # (1.8-7.7) K/mm3 PT (12.2-14.9) Sec. INR (0.87-1.13) APTT 55.5 H (24.2-36.6) Sec. Crossmatch
--- NOTE | 2019-04-25 13:33 | Event Note ---
Date: 04/25/19 Patient doing well. RLE palpable pulses. Motor function and sensory function unchanged. Compartments are soft. Calf pain improved. Continue agatroban until warfarin level 2-3 (4-6 on agatroban).
[2019-04-25] MEDS: ARGATROBAN 250 MG in NACL 0.9% 250ML 247.5 ML IV SCH (13:37)
[2019-04-25] MEDS: PROTONIX PO SCH ×2 (13:40→21:43)
[2019-04-25] MEDS: MIRALAX 3350 PO SCH (16:17)
[2019-04-25] MEDS: COUMADIN PO SCH (17:30)
[2019-04-25] MEDS: LOVENOX SUB-Q SCH (21:44)
--- NOTE | 2019-04-26 | Consultation ---
PULMONARY CRITICAL CARE CONSULTATION NOTE CONSULTING PHYSICIAN: Dr. Kristina Shields. REASON FOR CONSULTATION: Critical care management, acute limb ischemia. CHIEF COMPLAINT AND HISTORY OF PRESENT ILLNESS: The patient is a 33-year-old -[place] female with past medical history significant amongst other things for a diagnosis of being obese and tobacco abuse, came into the Emergency Room complaining of pain in her right leg that had been going on for about 2-3 days. It was an 03/27. It started when she came in from [place]. She was found to have in the ED, right popliteal artery occlusion. She was started on a heparin drip and Vascular Surgery team was consulted. In the Emergency Room, she denied any other constitutional symptoms. Denied chest pain. Denied palpitations. She denied fevers. She denies chills. She denied any trauma. Vascular Surgery performed a right lower extremity embolectomy; however, they were unable to palpate pedal pulses on the right. An arterial duplex confirms rethrombosis of the right femoral popliteal segment. She was taken back to the operating room and after treatment, the conclusion was that she probably had a hypercoagulable state, was going to require long-term oral anticoagulation by the time of discharge, she was transitioned over to argatroban and was brought into the intensive care unit for closer management. When I stopped by to see her, she was resting in bed, feeling a little bit better. The pain was much better. She still had some numbness in the lower extremity, but was able to move and pedal pulses were palpable. She denied any gross or streaky hemoptysis. She denied any history of hematochezia, any history of hematemesis, any history of hemoptysis or other bleeding diathesis. She does have a history of anemia, but denied any significant menorrhagia. This really is as much of the history of presentation as I have. PAST MEDICAL HISTORY: She is obese, has a history of nicotine dependence. PAST SURGICAL HISTORY: She has had bowel surgery. She has had liposuction. MEDICATIONS: She was on at the time I stopped by to see her, according to the medication administration record included the following: Tylenol 650 mg p.o. q. 4 hours p.r.n. mild pain or fevers, albuterol 2.5 mg nebulized q. 4 hours p.r.n. shortness of breath, aspirin 81 mg p.o. daily, Flonase 50 mcg to each nostril scheduled daily, folic acid 1 mg p.o. daily, Dilaudid 0.5 mg IV q. 12 hours p.r.n. severe pain, argatroban was going at about 13.8 mL per hour, Claritin 10 mg p.o. daily, p.r.n. Narcan, Zofran 4 mg IV q. 8 hours p.r.n. nausea and vomiting, Percocet 5/325 mg 2 tablets p.o. q. 6 hours p.r.n. moderate pain, and warfarin 7.5 mg p.o. daily, was to begin that day. ALLERGIES: No known drug allergies. DIET: Obese lady. Denies acute weight loss or gain in the preceding few weeks to months. FAMILY AND SOCIAL HISTORY: Lives in the community. She admits to about a 5+ pack year tobacco smoking history. Denies alcohol or illicit drug use or abuse. Family history is otherwise positive for hypertension and diabetes. REVIEW OF SYSTEMS: No significant weight changes. No gross hematochezia or melena. She denies any chest pains or palpitations. Denies any gross hematuria. She denies any dysuria. She denies any history of menorrhagia. She denies any new rashes on her body. No neck stiffness, no neck pain. She denies any new lumps or swellings bumps on her body. She denies periods of unexplained sadness and/or elation as may be consistent with depression or sajan. She denies heat or cold intolerance. Denies polydipsia. Denies polyphagia. Denies easy bruising. Complete 13-system review of systems obtained. Pertinent positives and/or negatives as in body of history above, otherwise noncontributory. PHYSICAL EXAMINATION: VITAL SIGNS: At presentation, she was afebrile, temperature 98.5 degrees Fahrenheit with a pulse of 121, respiratory rate of 18, blood pressure 140/79, O2 sats 100%, inspired oxygen concentration at that time was not recorded. When I stopped by to see her, O2 sats were 99% and that was on room air. GENERAL: She is a young obese -[place] female, normocephalic, atraumatic, talking to me in full sentences with normal respiratory effort at rest. HEAD, EYES, EARS, NOSE AND THROAT: She was anicteric, no conjunctival erythema. Oropharynx was moist. Mallampati #3 oropharynx. No gross jugular venous distention, no thyromegaly. Grossly, there were no palpable lymph nodes in the supraclavicular or submandibular lymph node chains. LUNGS: Again, Auscultation of both lung deal were unremarkable. Lungs were clear bilaterally. HEART: Heart sounds 1 and 2 were heard. They were regular in rate and rhythm without overt rubs or murmurs. ABDOMEN: Soft, full, bowel sounds positive, nontender, no palpable hepatosplenomegaly. EXTREMITIES: Without overt digital clubbing or cyanosis. Trace edema to the right lower extremity. It was warm to touch. Pedal pulses were palpable bilaterally, 1+ on the right. NEUROLOGIC: Pupils were equal, round, about 5 mm, reactive to light. Extraocular muscle movements were intact. She moves all 4 extremities spontaneously. SKIN: Normal turgor, mild erythema to the right lower extremity. No overt cellulitis or rash. She had a couple of JONEL drains I believe in place. Mood was normal. Affect was appropriate. LABORATORY DATA: From my review are as follows: Admission white cell count 10,300; hemoglobin was 6.3; hematocrit was 18.7; platelet count was about 500. INR was 1.15. Serum sodium was 138, potassium 3.6, chloride 102, bicarbonate 25, BUN 5, creatinine 0.5, glucose was 99. Liver function tests were within normal limits. White count was up to 15,600 at the time I saw her with a hemoglobin of 6.6. Platelet count of 502. ACT 208, APTT 85.3, BUN 9, creatinine 0.9. No microbiology studies for my review. A CT angio of the abdomen was done and the impression near total occlusion of the right popliteal artery secondary to thromboembolism that was at presentation, CT angio of the abdomen and pelvis. ASSESSMENT: 1. Acute limb ischemia. 2. Obesity. 3. Tobacco abuse. 4. Anemia present on arrival. PLAN: I will defer to the Vascular Surgery team in terms of her further therapy. We will continue the argatroban drip and continue the Coumadin, I believe with a target INR will be 2.0-3.0. She will need a blood transfusion. We will target and try and keep her serum hemoglobin greater than or equal to about 7.0. Tobacco abstinence has been strongly counseled at the bedside for greater than 5 minutes. I offered also AIDS to help with quitting. Weight loss has also been counseled, especially with her on full anticoagulation, she will be placed on GI prophylaxis. We will continue to watch her closely in the Intensive Care Unit, especially while on the argatroban drip. She certainly is at risk of bleeding including gross bleeding and cardiac decompensation from that aspect. Iron levels and anemia management will be deferred to the attending physician. Analgesia will be targeted to her pains calls. Flu and pneumonia vaccination will be addressed per protocol. Thank you very much for the consult Dr. Shields. We will follow along. We will make further recommendations as picture progresses/becomes clearer. She is critically ill at risk of decompensation including the risk of significant blood loss and . At this time, I spent about 35 minutes of critical care time without overlap and excluding any procedural time that may be necessary. JOB# [id number] OC/RUTH NOBLES
[2019-04-26] MEDS: DILAUDID IV PRN ×5 (00:58→20:37)
[2019-04-26] MEDS: PERCOCET 5/325 PO PRN ×3 (03:05→14:52)
[2019-04-26 05:12] LABS: INR 1.2 (0.87-1.13)
--- NOTE | 2019-04-26 07:38 | Hem/Onc Progress Note ---
Assessment and Plan 1. Right arterial thrombus. History of travel present. The patient says prior to the [place] trip she had right leg pain. 2. Anemia. The patient says she has been anemic for a long time, low folate, low iron. 3. Status post vascular team procedure. 4. The patient's right foot was cold. 5. Transfusion support as needed. 6. I discussed with patient regarding quitting smoking. 7. Obesity. h/o gastric sx - 2017 IV iron folate on argatroban eliquis an option as oral agent will do hypercoag Ix as OP adv s/l b12 as OP will look into IV iron as OP - Patient Problems (1) Anemia Current Visit: Yes Status: Acute Qualifiers: Anemia type: iron deficiency (2) Popliteal artery embolism, right Current Visit: Yes Status: Acute Subjective Date of service: 04/26/19 Principal diagnosis: rt arterial thrombus Interval history: rt leg pain better - ambulating Objective - Exam Narrative Exam: Pain - none General appearance - breathing better Performance status limited self care Eyes - no icterus, pallor + ENT - no bleeding LNs cervical not palpable Neck - no LN Respiratory Normal Breath sounds - CTA CVS S1 S2 + Extremities no calf tenderness General GI Soft Rectal deferred female - deferred Skin warm Musculoskeletal moving extremitites Neurologically awake - oriented - Constitutional Vitals: Last Vital Signs Temp 97.8 F 04/26/19 06:05 Pulse 90 04/26/19 06:05 Resp 18 04/26/19 06:05 BP 126/93 04/26/19 06:05 Pulse Ox 100 04/26/19 06:05 - Labs Lab Results: Laboratory Results - last 24 hr 04/21/19 04/25/19 04/26/19 15:45 21:19 04:46 PT 14.9 INR 1.20 H APTT 47.5 H Crossmatch See Detail Medications & Allergies - Medications Allergies/Adverse Reactions: Allergies No Known Allergies Allergy (Unverified 12/16/14 00:11) Home Medications: Home Medications Medication Instructions Recorded Confirmed Last Taken Type Fluticasone Propionate [Flonase] 2 sprays NS QDAY #1 bottle 12/16/14 Unknown Rx Loratadine [Claritin] 10 mg PO DAILY #30 tablet 12/16/14 04/25/19 Unknown Rx predniSONE [Deltasone] 40 mg PO QDAY #10 tab 12/16/14 04/25/19 Unknown Rx Active Medications: Generic Name Dose Route Start Last Admin Trade Name Freq PRN Reason Stop Dose Admin Acetaminophen 650 mg 04/21/19 15:12 Tylenol PO Q4H PRN Pain MILD(1-3)/Fever >100.5/VIVAR Albuterol 2.5 mg 04/21/19 15:12 Proventil IH Q4HRT PRN Shortness Of Breath Aspirin 81 mg 04/23/19 10:00 04/25/19 10:33 Halfprin Ec PO 81 mg QDAY RUTHIE Administration Enoxaparin Sodium 120 mg 04/25/19 22:00 04/25/19 21:44 Lovenox 1 mg/kg (120 mg) 120 mg SUB-Q Administration Q12HR RUTHIE Fluticasone Propionate 50 mcg 04/22/19 10:00 04/25/19 10:36 Flonase NS 50 mcg QDAY RUTHIE Administration Folic Acid 1 mg 04/24/19 13:00 04/25/19 10:33 Folvite PO 1 mg QDAY RUTHIE Administration Hydromorphone HCl 0.5 mg 04/25/19 18:00 04/26/19 06:16 Dilaudid IV 0.5 mg Q4H PRN Administration Pain , Severe (7-10) Lactated Ringer's 1,000 mls @ 100 mls/hr 04/22/19 11:00 04/24/19 21:46 Lactated Ringers IV 100 mls/hr DIRECT RUTHIE Administration Loratadine 10 mg 04/22/19 10:00 04/25/19 10:33 Claritin PO 10 mg DAILY RUTHIE Administration Naloxone HCl 0.1 mg 04/22/19 14:18 Narcan 0.4 Mg/1 Ml IV Q2MIN PRN Res Rate </= 8 or 02 SAT < 92% Ondansetron HCl 4 mg 04/21/19 15:12 04/23/19 20:49 Zofran IV 4 mg Q8H PRN Administration Nausea And Vomiting Oxycodone/Acetaminophen 2 tab 04/25/19 09:52 04/26/19 03:05 Percocet 5/325 PO 2 tab Q4H PRN Administration Pain, Moderate (4-6) Pantoprazole Sodium 40 mg 04/25/19 12:00 04/25/19 21:43 Protonix PO 40 mg BID RUTHIE Administration Polyethylene Glycol 17 gm 04/25/19 10:00 04/25/19 16:17 Miralax 3350 PO 17 gm QDAY RUTHIE Administration Sodium Chloride 10 ml 04/21/19 22:00 04/25/19 22:00 Sodium Chloride Flush Syringe 10 Ml IV 10 ml BID RUTHIE Administration Sodium Chloride 10 ml 04/21/19 15:12 Sodium Chloride Flush Syringe 10 Ml IV PRN PRN LINE FLUSH Warfarin Sodium 7.5 mg 04/24/19 17:00 04/25/19 17:30 Coumadin PO 7.5 mg DAILY@1700 RUTHIE Administration
[2019-04-26] MEDS: FOLVITE PO SCH (09:18)
[2019-04-26] MEDS: CLARITIN PO SCH (09:18)
[2019-04-26] MEDS: PROTONIX PO SCH ×2 (09:18→21:06)
[2019-04-26] MEDS: LOVENOX SUB-Q SCH (09:19)
[2019-04-26] MEDS: HALFPRIN EC PO SCH (09:20)
[2019-04-26] MEDS: MIRALAX 3350 PO SCH (09:20)
[2019-04-26] MEDS: SODIUM CHLORIDE FLUSH SYRINGE 10 ML IV SCH (09:23)
[2019-04-26] MEDS: FLONASE NS SCH (10:13)
[2019-04-26] MEDS: ARGATROBAN 250 MG in NACL 0.9% 250ML 247.5 ML IV SCH ×2 (10:53→22:40)
--- NOTE | 2019-04-26 12:05 | Progress Note ---
Assessment and Plan / Popliteal artery embolism, right with LE ischemia Placed on Heparin drip, Vascular surgery consulted, s/p Right Femoal-popliteal Embolectomy on 04/22 repeat US showed rethrombosis - taken to OR emergenty for revascularization on 04/23/19 - s/p embolectomy 2 with AngioJet thrombectomy. Placed on argatobran drip along with coumadin per vascular as patient might have failed Rx on heparin- monitor INR, d/anjelica heparin d/c when coumadin therapeutic, bridging with lovenox or eliquis not an option per vascular / Nicotine abuse Smoking cessation counseling done, supportive care. Nicotine patch if needed / Obesity (BMI 30-39.9) Balanced diet, increased physical activity at discharge, / Anemia, POA Likely acute on chronic and folate deficiency s/p 4 units of PRBC transfusion, no active bleeding replacing folate / DVT prophylaxis SCD to BLE while in bed, therapeutic anticoagulation. Brief history: 33 YO Female with Obesity,Nicotine Dependence, Anemia presents to ED for evaluation. Pt states that she has experienced pain in her right leg. Pt states that pain is 8/10, worsened with rest, improved with movement and elevation. Pt states that she has experienced pain over the past 1 week, with worsening symptoms over the past 2 days. Pt transported to [facility] via private vehicle. Pt seen and evaluated in ED and found to have Right Popliteal Artery Occlusion. Pt initiated on heparin drip. Vascular surgery team consulted in ED. Subjective Date of service: 04/26/19 Principal diagnosis: rt arterial thrombus Interval history: Patient seen and examined able to stand and ambulate Right leg calf pain feels lot better No active bleeding PT recommended no home needs Objective - Exam Narrative Exam: General appearance: Present: no acute distress, obese - EENT Eyes: PERRL, EOM intact ENT: hearing intact, clear oral mucosa Ears: bilateral: normal - Neck Neck: supple, normal ROM - Respiratory Respiratory effort: normal Respiratory: bilateral: CTA - Cardiovascular Rhythm: regular Heart Sounds: Present: S1 & S2. Absent: gallop, rub Extremities: normal color Extremity abnormal: reduced edema (RLE), pulses + (on RLE), no tenderness (RLE) - Gastrointestinal General gastrointestinal: Present: soft, non-tender, non-distended, normal bowel sounds - Integumentary Integumentary: clear, warm, dry, no erythema - Musculoskeletal Musculoskeletal: 1, strength equal bilaterally - Neurologic Neurologic: moves all extremities - Psychiatric Psychiatric: memory intact, appropriate mood/affect, intact judgment & insight - Constitutional Vitals: Vital Signs - 12hr 04/26/19 06:05 Temperature 97.8 F Pulse Rate 90 Respiratory 18 Rate Blood Pressure 126/93 O2 Sat by Pulse 100 Oximetry - Labs CBC & Chem 7: 04/26/19 13:27 04/24/19 04:24 Labs: Abnormal lab results 04/25/19 04/26/19 Range/Units 21:19 04:46 INR 1.20 H (0.87-1.13) APTT 47.5 H (24.2-36.6) Sec.
[2019-04-26 13:42] LABS: Hematocrit 30.3 % (30.3-42.9); Hemoglobin 9.9 gm/dl (10.1-14.3); Mean Corpuscular HGB Conc 33 % (30-34); Mean Corpuscular Volume 83 fl (79-97); Platelet Count 568 K/mm3 (140-440); Red Blood Count 3.66 M/mm3 (3.65-5.03); Red Cell Distribution Width 18.3 % (13.2-15.2)
--- NOTE | 2019-04-26 14:03 | Progress Note ---
Assessment and Plan 33-year-old female with acute limb ischemia of the right lower extremity requiring embolectomy 2 with AngioJet thrombectomy. Patient's original presentation and recurrent thrombosis is highly concerning for hypercoagulable condition. Will need hematology follow-up. Will need anticoagulation, probably for life. Patient had intolerance of heparin during second embolectomy (greater than 20,000 units provided) and still thrombosed intraoperatively requiring escalation to Agatroban. Continue Agatroban. On warfarin. Recommend aspirin for life as well. Patient has mild foot drop and some numbness of her toes with the foot drop un changed from presentation upon further questioning, and the numbness of her toes unchanged from her first reocclusion upon further questioning. Nothing has worsened overnight. These are stable at this time. The patient has no bulging of compartments but does have some posterior calf discomfort. Told patient to elevate her leg if she is not walking. Palpable pedal pulses. Once INR therapeutic, can be discharged with follow-up with hematology for Coumadin management and vascular. Follow up with Dr. Oconnell 2 weeks. Vascular signing off. Subjective Date of service: 04/26/19 Principal diagnosis: rt arterial thrombus Interval history: Patient reports having foot drop since original presentation. She has some toe numbness which occurred after her first operative occlusion and has not worsens. She has palpable pedal pulses of the right lower extremity. There is no pain or bulging of the anterior or lateral compartments. She has some discomfort of her posterior calf without evidence of bulging. Incision with sunday and line c/d/i. Objective - Constitutional Vitals: Vital Signs - 12hr 04/26/19 04/26/19 06:05 11:19 Temperature 97.8 F 98.2 F Pulse Rate 90 86 Respiratory 18 16 Rate Blood Pressure 126/93 128/74 O2 Sat by Pulse 100 99 Oximetry General appearance: Present: no acute distress - EENT Eyes: EOM intact ENT: hearing intact - Respiratory Respiratory effort: normal Extremities: abnormal (see subjective) - Psychiatric Psychiatric: appropriate mood/affect, cooperative - Labs CBC & Chem 7: 04/26/19 13:27 04/24/19 04:24 Labs: Abnormal lab results 04/25/19 04/26/19 04/26/19 Range/Units 21:19 04:46 13:27 Hgb 9.9 L (10.1-14.3) gm/dl MCH 27 L (28-32) pg RDW 18.3 H (13.2-15.2) % Plt Count 568 H (140-440) K/mm3 INR 1.20 H (0.87-1.13) APTT 47.5 H (24.2-36.6) Sec. Medications & Allergies - Medications Allergies/Adverse Reactions: Allergies No Known Allergies Allergy (Unverified 12/16/14 00:11) Home Medications: Home Medications Medication Instructions Recorded Confirmed Last Taken Type Fluticasone Propionate [Flonase] 2 sprays NS QDAY #1 bottle 12/16/14 Unknown Rx Loratadine [Claritin] 10 mg PO DAILY #30 tablet 12/16/14 04/25/19 Unknown Rx predniSONE [Deltasone] 40 mg PO QDAY #10 tab 12/16/14 04/25/19 Unknown Rx Active Medications: Generic Name Dose Route Start Last Admin Trade Name Freq PRN Reason Stop Dose Admin Acetaminophen 650 mg 04/21/19 15:12 Tylenol PO Q4H PRN Pain MILD(1-3)/Fever >100.5/VIVAR Albuterol 2.5 mg 04/21/19 15:12 Proventil IH Q4HRT PRN Shortness Of Breath Aspirin 81 mg 04/23/19 10:00 04/26/19 09:20 Halfprin Ec PO 81 mg QDAY RUTHIE Administration Fluticasone Propionate 50 mcg 04/22/19 10:00 04/26/19 10:13 Flonase NS 50 mcg QDAY RUTHIE Administration Folic Acid 1 mg 04/24/19 13:00 04/26/19 09:18 Folvite PO 1 mg QDAY RUTHIE Administration Hydromorphone HCl 0.5 mg 04/25/19 18:00 04/26/19 12:27 Dilaudid IV 0.5 mg Q4H PRN Administration Pain , Severe (7-10) Argatroban 250 mg/ Sodium 250 mls @ 14.724 mls/hr 04/26/19 10:00 04/26/19 10:53 Chloride IV 2 mcg/kg/min TITR RUTHIE 14.724 mls/hr Administration Protocol 2 MCG/KG/MIN Loratadine 10 mg 04/22/19 10:00 04/26/19 09:18 Claritin PO 10 mg DAILY RUTHIE Administration Naloxone HCl 0.1 mg 04/22/19 14:18 Narcan 0.4 Mg/1 Ml IV Q2MIN PRN Res Rate </= 8 or 02 SAT < 92% Ondansetron HCl 4 mg 04/21/19 15:12 04/23/19 20:49 Zofran IV 4 mg Q8H PRN Administration Nausea And Vomiting Oxycodone/Acetaminophen 2 tab 04/25/19 09:52 04/26/19 09:06 Percocet 5/325 PO 2 tab Q4H PRN Administration Pain, Moderate (4-6) Pantoprazole Sodium 40 mg 04/25/19 12:00 04/26/19 09:18 Protonix PO 40 mg BID RUTHIE Administration Polyethylene Glycol 17 gm 04/25/19 10:00 04/26/19 09:20 Miralax 3350 PO 17 gm QDAY RUTHIE Administration Sodium Chloride 10 ml 04/21/19 22:00 04/26/19 09:23 Sodium Chloride Flush Syringe 10 Ml IV 10 ml BID RUTHIE Administration Sodium Chloride 10 ml 04/21/19 15:12 Sodium Chloride Flush Syringe 10 Ml IV PRN PRN LINE FLUSH Warfarin Sodium 10 mg 04/26/19 17:00 Coumadin PO DAILY@1700 [facility]
[2019-04-26] MEDS: COUMADIN PO SCH (16:35)
--- NOTE | 2019-04-26 17:47 | Progress Note ---
Assessment and Plan Patient alert and awake in no acute respiratory distress. Resting on room air. O2 saturation 98%. Patient diagnosed with R lower ext DVT. Patient now on argatroban. Afebrile, no leukocytosis. - Patient Problems (1) Popliteal artery embolism, right Current Visit: Yes Status: Acute Plan to address problem: Patient is on argatroban. (2) Anemia Current Visit: Yes Status: Acute Qualifiers: Anemia type: iron deficiency Plan to address problem: Hgb 9.9. Hct 30.3. Continue management as per primary care. (3) Nicotine dependence unspecified, with withdrawal Current Visit: Yes Status: Acute Qualifiers: Nicotine product type: cigarettes Qualified Code(s): F17.213 - Nicotine dependence, cigarettes, with withdrawal Plan to address problem: Counseled to stop smoking. (4) Obesity (BMI 30-39.9) Current Visit: Yes Status: Acute Plan to address problem: Recommend to lose weight. Recommend diet and exercise. Recommend sleep study as outpatient. Subjective Date of service: 04/26/19 Principal diagnosis: rt arterial thrombus Interval history: Patient alert and awake in no acute respiratory distress. Resting on room air. O2 saturation 98%. Patient diagnosed with R lower ext DVT. Patient now on argatroban. Afebrile, no leukocytosis. Objective Vital Signs - 12hr 04/26/19 04/26/19 04/26/19 06:05 11:19 17:11 Temperature 97.8 F 98.2 F 98.3 F Pulse Rate 90 86 87 Respiratory 18 16 18 Rate Blood Pressure 126/93 128/74 117/75 O2 Sat by Pulse 100 99 98 Oximetry Constitutional: no acute distress, alert Eyes: non-icteric ENT: oropharynx moist Neck: supple Effort: normal Ascultation: Bilateral: diminished breath sounds Cardiovascular: regular rate and rhythm Gastrointestinal: normoactive bowel sounds, soft, non-tender Integumentary: normal Extremities: no cyanosis, other (R lower leg appears bigger than left leg) Psychiatric: mood appropriate CBC and BMP: 04/26/19 13:27 04/24/19 04:24 ABG, PT/INR, D-dimer: PT/INR, D-dimer PT 14.9 Sec. (12.2-14.9) 04/26/19 04:46 INR 1.20 (0.87-1.13) H 04/26/19 04:46 Abnormal lab findings: Abnormal Labs 04/21/19 04/21/19 04/21/19 12:31 12:31 15:35 WBC RBC 2.69 L Hgb 6.8 L 6.3 L Hct 21.2 L 18.7 L* MCH 25 L RDW 16.8 H Plt Count 617 H 500 H Lymph % (Auto) Seg Neutrophils % Seg Neutrophils # PT INR APTT Activated Clotting Time Heparin Anti-Xa Level BUN 5 L Creatinine Glucose Iron AST Albumin 3.4 L Folate Crossmatch 04/21/19 04/21/19 04/22/19 15:35 15:45 08:16 WBC RBC Hgb Hct MCH RDW Plt Count Lymph % (Auto) Seg Neutrophils % Seg Neutrophils # PT INR 1.15 H APTT 73.3 H* Activated Clotting Time Heparin Anti-Xa Level BUN 6 L Creatinine 0.6 L Glucose Iron AST 41 H Albumin 2.9 L Folate Crossmatch See Detail 04/22/19 04/22/19 04/22/19 09:11 13:38 22:20 WBC RBC 3.06 L Hgb 8.0 L Hct 24.6 L MCH 26 L RDW 16.9 H Plt Count 532 H Lymph % (Auto) Seg Neutrophils % Seg Neutrophils # PT INR APTT Activated Clotting Time 180 H Heparin Anti-Xa Level < 0.10 L BUN Creatinine Glucose Iron AST Albumin Folate Crossmatch 04/23/19 04/23/19 04/23/19 06:13 07:58 07:58 WBC RBC Hgb 7.8 L Hct 24.4 L MCH RDW Plt Count 561 H Lymph % (Auto) Seg Neutrophils % Seg Neutrophils # PT INR APTT Activated Clotting Time Heparin Anti-Xa Level BUN Creatinine Glucose Iron 26 L AST Albumin Folate 4.02 L Crossmatch 04/23/19 04/23/19 04/23/19 07:58 11:15 11:36 WBC RBC Hgb 7.8 L Hct 24.4 L MCH RDW Plt Count 548 H Lymph % (Auto) Seg Neutrophils % Seg Neutrophils # PT INR APTT Activated Clotting Time 191 H 202 H Heparin Anti-Xa Level BUN Creatinine Glucose Iron AST Albumin Folate Crossmatch 04/23/19 04/23/19 04/23/19 12:06 15:47 19:21 WBC RBC Hgb 7.0 L Hct 21.3 L MCH RDW Plt Count Lymph % (Auto) Seg Neutrophils % Seg Neutrophils # PT INR APTT 85.3 H* Activated Clotting Time 208 H Heparin Anti-Xa Level BUN Creatinine Glucose Iron AST Albumin Folate Crossmatch 04/24/19 04/24/19 04/24/19 04:24 04:24 10:00 WBC 15.6 H RBC 2.50 L Hgb 6.6 L 6.6 L Hct 20.1 L 20.3 L MCH 26 L RDW 17.7 H Plt Count 502 H Lymph % (Auto) 11.5 L Seg Neutrophils % 83.2 H Seg Neutrophils # 12.9 H PT INR APTT Activated Clotting Time Heparin Anti-Xa Level BUN Creatinine Glucose 105 H Iron AST Albumin Folate Crossmatch 04/24/19 04/24/19 04/24/19 16:42 16:42 21:00 WBC RBC Hgb Hct MCH RDW Plt Count Lymph % (Auto) Seg Neutrophils % Seg Neutrophils # PT 24.3 H INR 2.23 H APTT 69.4 H* 65.5 H* Activated Clotting Time Heparin Anti-Xa Level BUN Creatinine Glucose Iron AST Albumin Folate Crossmatch 04/25/19 04/25/19 04/25/19 05:12 05:12 05:12 WBC 11.6 H RBC 3.02 L Hgb 8.2 L Hct 25.2 L MCH 27 L RDW 18.2 H Plt Count 447 H Lymph % (Auto) Seg Neutrophils % 74.4 H Seg Neutrophils # 8.6 H PT 22.6 H INR 2.04 H APTT 55.5 H Activated Clotting Time Heparin Anti-Xa Level BUN Creatinine Glucose Iron AST Albumin Folate Crossmatch 04/25/19 04/26/19 04/26/19 21:19 04:46 13:27 WBC RBC Hgb 9.9 L Hct MCH 27 L RDW 18.3 H Plt Count 568 H Lymph % (Auto) Seg Neutrophils % Seg Neutrophils # PT INR 1.20 H APTT 47.5 H Activated Clotting Time Heparin Anti-Xa Level BUN Creatinine Glucose Iron AST Albumin Folate Crossmatch Additional Studies: FINDINGS: RIGHT: Common Femoral Artery: PSV 74 cm/sec. Triphasic waveform. Proximal SFA: PSV 0 cm/sec. Mid SFA: PSV 0 cm/sec. Distal SFA: PSV 0 cm/sec. Popliteal artery: PSV 0 cm/sec. Posterior tibial artery: PSV 0 cm/sec. Anterior tibial artery: PSV 6 cm/sec. Monophasic waveform. IMPRESSION: No color Doppler flow or velocities could be identified in the superficial femoral artery, popliteal artery and posterior tibial artery consistent with thrombosis. There is trace flow in the anterior tibial artery.
[2019-04-26] MEDS: ZOFRAN IV PRN (20:37)
[2019-04-27] MEDS: SODIUM CHLORIDE FLUSH SYRINGE 10 ML IV SCH ×3 (00:06→21:58)
[2019-04-27] MEDS: DILAUDID IV PRN ×3 (00:14→16:40)
[2019-04-27] MEDS: PERCOCET 5/325 PO PRN ×3 (03:15→21:58)
[2019-04-27 05:05] LABS: Basophils # (Auto) 0.1 K/mm3 (0.0-0.1); Basophils % (Auto) 1.2 % (0.0-1.8); Eosinophils # (Auto) 0.1 K/mm3 (0.0-0.4); Eosinophils % (Auto) 1.9 % (0.0-4.3); Hemoglobin 8.7 gm/dl (10.1-14.3); Lymphocytes # (Auto) 1.5 K/mm3 (1.2-5.4); Lymphocytes % (Auto) 23.7 % (13.4-35.0); Mean Corpuscular HGB Conc 32 % (30-34); Mean Corpuscular Volume 83 fl (79-97); Monocytes # (Auto) 0.4 K/mm3 (0.0-0.8); Monocytes % (Auto) 5.7 % (0.0-7.3); Platelet Count 514 K/mm3 (140-440); Red Blood Count 3.28 M/mm3 (3.65-5.03); Red Cell Distribution Width 17.8 % (13.2-15.2)
[2019-04-27 05:14] LABS: INR 2.72 (0.87-1.13)
[2019-04-27 05:19] LABS: BUN/Creatinine Ratio 8; Blood Urea Nitrogen 5 mg/dL (7-17); Calcium 8.8 mg/dL (8.4-10.2); Hemolysis Index 5
--- NOTE | 2019-04-27 07:12 | Hem/Onc Progress Note ---
Assessment and Plan 1. Right arterial thrombus. History of travel present. The patient says prior to the [place] trip she had right leg pain. 2. Anemia. The patient says she has been anemic for a long time, low folate, low iron. 3. Status post vascular team procedure. 4. The patient's right foot was cold. 5. Transfusion support as needed. 6. I discussed with patient regarding quitting smoking. 7. Obesity. h/o gastric sx - 2017 IV iron folate on argatroban eliquis an option as oral agent - Warfarin started as per vascular team will do hypercoag Ix as OP adv s/l b12 as OP will look into IV iron as OP - Patient Problems (1) Anemia Current Visit: Yes Status: Acute Qualifiers: Anemia type: iron deficiency (2) Popliteal artery embolism, right Current Visit: Yes Status: Acute Subjective Date of service: 04/27/19 Principal diagnosis: anemia- arterial ischemia Interval history: leg better Objective - Exam Narrative Exam: Pain - none General appearance - breathing better Performance status limited self care Eyes - no icterus, pallor + ENT - no bleeding LNs cervical not palpable Neck - no LN Respiratory Normal Breath sounds - CTA CVS S1 S2 + Extremities no calf tenderness General GI Soft Rectal deferred female - deferred Skin warm Musculoskeletal moving extremitites Neurologically awake - oriented - Constitutional Vitals: Last Vital Signs Temp 97.3 F L 04/27/19 05:01 Pulse 99 H 04/27/19 05:01 Resp 18 04/27/19 06:17 BP 135/85 04/27/19 05:01 Pulse Ox 100 04/27/19 05:01 - Labs Lab Results: Laboratory Results - last 24 hr 04/23/19 04/26/19 04/26/19 Unknown 13:27 22:26 WBC 8.9 RBC 3.66 Hgb 9.9 L Hct 30.3 MCV 83 MCH 27 L MCHC 33 RDW 18.3 H Plt Count 568 H Lymph % (Auto) [place] % (Auto) Eos % (Auto) Baso % (Auto) Lymph # [place] # Eos # Baso # Seg Neutrophils % Seg Neutrophils # PT INR APTT 126.1 H* Antithrombin III Ag 76 L Sodium Potassium Chloride Carbon Dioxide Anion Gap BUN Creatinine Estimated GFR BUN/Creatinine Ratio Glucose Calcium 04/27/19 04/27/19 04/27/19 04:20 04:20 04:20 WBC 6.3 RBC 3.28 L Hgb 8.7 L Hct 27.0 L MCV 83 MCH 27 L MCHC 32 RDW 17.8 H Plt Count 514 H Lymph % (Auto) 23.7 [place] % (Auto) 5.7 Eos % (Auto) 1.9 Baso % (Auto) 1.2 Lymph # 1.5 [place] # 0.4 Eos # 0.1 Baso # 0.1 Seg Neutrophils % 67.5 Seg Neutrophils # 4.2 PT 28.4 H INR 2.72 H APTT Antithrombin III Ag Sodium 140 Potassium 4.1 Chloride 103.2 Carbon Dioxide 27 Anion Gap 14 BUN 5 L Creatinine 0.6 L Estimated GFR > 60 BUN/Creatinine Ratio 8 Glucose 94 Calcium 8.8 04/27/19 04:20 WBC RBC Hgb Hct MCV MCH MCHC RDW Plt Count Lymph % (Auto) [place] % (Auto) Eos % (Auto) Baso % (Auto) Lymph # [place] # Eos # Baso # Seg Neutrophils % Seg Neutrophils # PT INR APTT 62.1 H* Antithrombin III Ag Sodium Potassium Chloride Carbon Dioxide Anion Gap BUN Creatinine Estimated GFR BUN/Creatinine Ratio Glucose Calcium Medications & Allergies - Medications Allergies/Adverse Reactions: Allergies No Known Allergies Allergy (Unverified 12/16/14 00:11) Home Medications: Home Medications Medication Instructions Recorded Confirmed Last Taken Type Fluticasone Propionate [Flonase] 2 sprays NS QDAY #1 bottle 12/16/14 Unknown Rx Loratadine [Claritin] 10 mg PO DAILY #30 tablet 12/16/14 04/25/19 Unknown Rx predniSONE [Deltasone] 40 mg PO QDAY #10 tab 12/16/14 04/25/19 Unknown Rx Active Medications: Generic Name Dose Route Start Last Admin Trade Name Freq PRN Reason Stop Dose Admin Acetaminophen 650 mg 04/21/19 15:12 Tylenol PO Q4H PRN Pain MILD(1-3)/Fever >100.5/VIVAR Albuterol 2.5 mg 04/21/19 15:12 Proventil IH Q4HRT PRN Shortness Of Breath Aspirin 81 mg 04/23/19 10:00 04/26/19 09:20 Halfprin Ec PO 81 mg QDAY RUTHIE Administration Fluticasone Propionate 50 mcg 04/22/19 10:00 04/26/19 10:13 Flonase NS 50 mcg QDAY RUTHIE Administration Folic Acid 1 mg 04/24/19 13:00 04/26/19 09:18 Folvite PO 1 mg QDAY RUTHIE Administration Hydromorphone HCl 0.5 mg 04/25/19 18:00 04/27/19 05:47 Dilaudid IV 0.5 mg Q4H PRN Administration Pain , Severe (7-10) Argatroban 250 mg/ Sodium 250 mls @ 14.724 mls/hr 04/26/19 10:00 04/26/19 23:59 Chloride IV 1 mcg/kg/min TITR RUTHIE 7.362 mls/hr Titration Protocol 2 MCG/KG/MIN Loratadine 10 mg 04/22/19 10:00 04/26/19 09:18 Claritin PO 10 mg DAILY RUTHIE Administration Naloxone HCl 0.1 mg 04/22/19 14:18 Narcan 0.4 Mg/1 Ml IV Q2MIN PRN Res Rate </= 8 or 02 SAT < 92% Ondansetron HCl 4 mg 04/21/19 15:12 04/26/19 20:37 Zofran IV 4 mg Q8H PRN Administration Nausea And Vomiting Oxycodone/Acetaminophen 2 tab 04/25/19 09:52 04/26/19 14:52 Percocet 5/325 PO 2 tab Q4H PRN Administration Pain, Moderate (4-6) Pantoprazole Sodium 40 mg 04/25/19 12:00 04/26/19 21:06 Protonix PO 40 mg BID RUTHIE Administration Polyethylene Glycol 17 gm 04/25/19 10:00 04/26/19 09:20 Miralax 3350 PO 17 gm QDAY RUTHIE Administration Sodium Chloride 10 ml 04/21/19 22:00 04/27/19 00:06 Sodium Chloride Flush Syringe 10 Ml IV 10 ml BID RUTHIE Administration Sodium Chloride 10 ml 04/21/19 15:12 Sodium Chloride Flush Syringe 10 Ml IV PRN PRN LINE FLUSH Warfarin Sodium 10 mg 04/26/19 17:00 04/26/19 16:35 Coumadin PO 10 mg DAILY@1700 RUTHIE Administration
[2019-04-27] MEDS ORDERED: FERRLECIT 125 MG in NACL 0.9% 100 ML IV ONE (10:00)
--- NOTE | 2019-04-27 10:40 | XRay Report ---
CHEST 2 VIEWS INDICATION: Patient is a smoker.. Cough. COMPARISON: None. FINDINGS: Support devices: None. Heart: Within normal limits. Pulmonary vasculature: Normal. Lungs/pleura: The lungs are normally expanded and clear. No lung nodule or mass. No airspace disease. No pleural effusion. No pneumothorax. Additional findings: None. IMPRESSION: 1. No acute findings. Signer Name: Kar Rolon MD Signed: 04/27/2019 10:35 AM Workstation Name: [id number]
--- NOTE | 2019-04-27 10:46 | Event Note ---
Date: 04/27/19 Patient off the floor during rounds so I was unable to evaluate. Her INR is 2.72. Continue Argatroban drip until her INR is 4.
--- NOTE | 2019-04-27 11:04 | Progress Note ---
Assessment and Plan Assessment and plan: 33 YO Female with Obesity,Nicotine Dependence, Anemia presents to ED for evaluation. Pt states that she has experienced pain in her right leg. Pt states that pain is 8/10, worsened with rest, improved with movement and elevation. Pt states that she has experienced pain over the past 1 week, with worsening symptoms over the past 2 days. Pt transported to [facility] via private vehicle. Pt seen and evaluated in ED and found to have Right Popliteal Artery Occlusion. Pt initiated on heparin drip. Vascular surgery team consulted in ED. Popliteal artery embolism, right with LE ischemia Placed on Heparin drip, Vascular surgery consulted, s/p Right Femoal-popliteal Embolectomy on 04/22 repeat US showed rethrombosis - taken to OR emergenty for revascularization on 04/23/19 - s/p embolectomy 2 with AngioJet thrombectomy. Placed on argatobran drip along with coumadin per vascular as patient might have failed Rx on heparin- monitor INR, d/anjelica heparin d/c Argatroban when INR 4.0 and dc home as per Vasc Surg Nicotine abuse Smoking cessation counseling done, supportive care. Nicotine patch if needed Obesity (BMI 30-39.9) Balanced diet, increased physical activity at discharge, Anemia, POA Likely acute on chronic and folate deficiency s/p 4 units of PRBC transfusion, no active bleeding replacing folate DVT prophylaxis SCD to BLE while in bed, therapeutic anticoagulation. Will stop argatroban when INR 4.90 and dc home as per Vasc surg History Interval history: Less pain right leg Hospitalist Physical - Physical exam Narrative exam: Gen: Not in acute distress, morbidly obese, lying in bed HEENT: Normocephalic, atraumatic Neck: supple, no JVD Heart: S1 and S2 reg, no murmurs, rubs or gallop Lungs: Clear to auscultation, no rhonchi, no wheeze Abd: soft, non tender, non distended, normal BS, Ext: Right lower ext covered with dressing, bandage Neuro: Awake, alert, oriented X 3, no focal neurological signs - Constitutional Vitals: Temp Pulse Resp BP Pulse Ox 97.3 F L 99 H 18 135/85 100 04/27/19 05:01 04/27/19 05:01 04/27/19 06:17 04/27/19 05:01 04/27/19 05:01 General appearance: Present: no acute distress Results - Labs CBC & Chem 7: 04/27/19 04:20 04/27/19 04:20 Labs: Laboratory Last Values WBC 6.3 K/mm3 (4.5-11.0) 04/27/19 04:20 RBC 3.28 M/mm3 (3.65-5.03) L 04/27/19 04:20 Hgb 8.7 gm/dl (10.1-14.3) L 04/27/19 04:20 Hct 27.0 % (30.3-42.9) L 04/27/19 04:20 MCV 83 fl (79-97) 04/27/19 04:20 MCH 27 pg (28-32) L 04/27/19 04:20 MCHC 32 % (30-34) 04/27/19 04:20 RDW 17.8 % (13.2-15.2) H 04/27/19 04:20 Plt Count 514 K/mm3 (140-440) H 04/27/19 04:20 Lymph % (Auto) 23.7 % (13.4-35.0) 04/27/19 04:20 [place] % (Auto) 5.7 % (0.0-7.3) 04/27/19 04:20 Eos % (Auto) 1.9 % (0.0-4.3) 04/27/19 04:20 Baso % (Auto) 1.2 % (0.0-1.8) 04/27/19 04:20 Lymph # 1.5 K/mm3 (1.2-5.4) 04/27/19 04:20 [place] # 0.4 K/mm3 (0.0-0.8) 04/27/19 04:20 Eos # 0.1 K/mm3 (0.0-0.4) 04/27/19 04:20 Baso # 0.1 K/mm3 (0.0-0.1) 04/27/19 04:20 Seg Neutrophils % 67.5 % (40.0-70.0) 04/27/19 04:20 Seg Neutrophils # 4.2 K/mm3 (1.8-7.7) 04/27/19 04:20 PT 28.4 Sec. (12.2-14.9) H 04/27/19 04:20 INR 2.72 (0.87-1.13) H 04/27/19 04:20 APTT 62.1 Sec. (24.2-36.6) H* 04/27/19 04:20 208 (74-137) H 04/23/19 12:06 Antithrombin III Ag 76 % (80-120) L 04/23/19 Unknown Heparin Anti-Xa Level < 0.10 U.I./ml (0.3-0.7) L 04/22/19 22:20 Sodium 140 mmol/L (137-145) 04/27/19 04:20 Potassium 4.1 mmol/L (3.6-5.0) 04/27/19 04:20 Chloride 103.2 mmol/L (98-107) 04/27/19 04:20 Carbon Dioxide 27 mmol/L (22-30) 04/27/19 04:20 14 mmol/L 04/27/19 04:20 BUN 5 mg/dL (7-17) L 04/27/19 04:20 0.6 mg/dL (0.7-1.2) L 04/27/19 04:20 Estimated GFR > 60 ml/min 04/27/19 04:20 8 % 04/27/19 04:20 Glucose 94 mg/dL (65-100) 04/27/19 04:20 Calcium 8.8 mg/dL (8.4-10.2) 04/27/19 04:20 Iron 26 ug/dL (37-170) L 04/23/19 07:58 TIBC 289 mcg/dL (250-450) 04/23/19 07:58 95.6 ng/mL (13.0-400.0) 04/23/19 07:58 0.50 mg/dL (0.1-1.2) 04/22/19 08:16 AST 41 units/L (5-40) H 04/22/19 08:16 ALT 34 units/L (7-56) 04/22/19 08:16 48 units/L (35-129) 04/22/19 08:16 6.4 g/dL (6.3-8.2) 04/22/19 08:16 2.9 g/dL (3.9-5) L 04/22/19 08:16 0.8 % 04/22/19 08:16 Vitamin B12 466.0 pg/mL (211-911) 04/23/19 07:58 4.02 ng/mL (7.3-26.0) L 04/23/19 07:58 HCG, Qual Negative (Negative) 04/21/19 12:31 Blood Type B POSITIVE 04/21/19 15:45 Antibody Screen Negative 04/21/19 15:45 Crossmatch See Detail 04/21/19 15:45 Active Medications - Current Medications Current Medications: Generic Name Dose Route Start Last Admin Trade Name Freq PRN Reason Stop Dose Admin Acetaminophen 650 mg 04/21/19 15:12 Tylenol PO Q4H PRN Pain MILD(1-3)/Fever >100.5/VIVAR Albuterol 2.5 mg 04/21/19 15:12 Proventil IH Q4HRT PRN Shortness Of Breath Aspirin 81 mg 04/23/19 10:00 04/26/19 09:20 Halfprin Ec PO 81 mg QDAY RUTHIE Administration Fluticasone Propionate 50 mcg 04/22/19 10:00 04/26/19 10:13 Flonase NS 50 mcg QDAY RUTHIE Administration Folic Acid 1 mg 04/24/19 13:00 04/26/19 09:18 Folvite PO 1 mg QDAY RUTHIE Administration Hydromorphone HCl 0.5 mg 04/25/19 18:00 04/27/19 05:47 Dilaudid IV 0.5 mg Q4H PRN Administration Pain , Severe (7-10) Argatroban 250 mg/ Sodium 250 mls @ 14.724 mls/hr 04/26/19 10:00 04/26/19 23:59 Chloride IV 1 mcg/kg/min TITR RUTHIE 7.362 mls/hr Titration Protocol 2 MCG/KG/MIN Ferric Sodium Gluconate 110 mls @ 100 mls/hr 04/27/19 10:00 Complex 125 mg/ Sodium IV 04/27/19 11:05 Chloride ONCE ONE Loratadine 10 mg 04/22/19 10:00 04/26/19 09:18 Claritin PO 10 mg DAILY RUTHIE Administration Naloxone HCl 0.1 mg 04/22/19 14:18 Narcan 0.4 Mg/1 Ml IV Q2MIN PRN Res Rate </= 8 or 02 SAT < 92% Ondansetron HCl 4 mg 04/21/19 15:12 04/26/19 20:37 Zofran IV 4 mg Q8H PRN Administration Nausea And Vomiting Oxycodone/Acetaminophen 2 tab 04/25/19 09:52 04/27/19 08:16 Percocet 5/325 PO 2 tab Q4H PRN Administration Pain, Moderate (4-6) Pantoprazole Sodium 40 mg 04/25/19 12:00 04/26/19 21:06 Protonix PO 40 mg BID RUTHIE Administration Polyethylene Glycol 17 gm 04/25/19 10:00 04/26/19 09:20 Miralax 3350 PO 17 gm QDAY RUTHIE Administration Sodium Chloride 10 ml 04/21/19 22:00 04/27/19 00:06 Sodium Chloride Flush Syringe 10 Ml IV 10 ml BID RUTHIE Administration Sodium Chloride 10 ml 04/21/19 15:12 Sodium Chloride Flush Syringe 10 Ml IV PRN PRN LINE FLUSH Warfarin Sodium 10 mg 04/26/19 17:00 04/26/19 16:35 Coumadin PO 10 mg DAILY@1700 RUTHIE Administration Nutrition/Malnutrition Assess - Dietary Evaluation Nutrition/Malnutrition Findings: Nutrition Notes Start: 04/26/19 14:16 Freq: Status: Active Protocol: Document 04/26/19 14:16 [place] (Rec: 04/26/19 14:17 OH [id number]) Nutrition Notes Need for Assessment generated from: Education Initial or Follow up Brief Note Subjective/Other Information RD consulted for coumadin education. Education per pt has been provided previously while hospitalized. Nutrition Intervention Revisit per MD consult or patient Sign Off request:
[2019-04-27] MEDS: CLARITIN PO SCH (11:15)
[2019-04-27] MEDS: PROTONIX PO SCH ×2 (11:15→21:58)
[2019-04-27] MEDS: FOLVITE PO SCH (11:15)
[2019-04-27] MEDS: FLONASE NS SCH (11:16)
[2019-04-27] MEDS: MIRALAX 3350 PO SCH (11:16)
[2019-04-27] MEDS: HALFPRIN EC PO SCH (11:17)
--- NOTE | 2019-04-27 13:55 | Progress Note ---
Assessment and Plan Patient alert and awake in no acute respiratory distress. Resting on room air. O2 saturation 100%. Patient diagnosed with R lower ext DVT. Patient now on argatroban. Afebrile, no leukocytosis. - Patient Problems (1) Popliteal artery embolism, right Current Visit: Yes Status: Acute Plan to address problem: Patient is on argatroban. (2) Anemia Current Visit: Yes Status: Acute Qualifiers: Anemia type: iron deficiency Plan to address problem: Hgb 8.7. Hct 27. Continue management as per primary care. (3) Nicotine dependence unspecified, with withdrawal Current Visit: Yes Status: Acute Qualifiers: Nicotine product type: cigarettes Qualified Code(s): F17.213 - Nicotine dependence, cigarettes, with withdrawal Plan to address problem: Counseled to stop smoking. (4) Obesity (BMI 30-39.9) Current Visit: Yes Status: Acute Plan to address problem: Recommend to lose weight. Recommend diet and exercise. Recommend sleep study as outpatient. Subjective Date of service: 04/27/19 Principal diagnosis: anemia- arterial ischemia Interval history: Patient alert and awake in no acute respiratory distress. Resting on room air. O2 saturation 100%. Patient diagnosed with R lower ext DVT. Patient now on argatroban. Afebrile, no leukocytosis. Objective Vital Signs - 12hr 04/27/19 04/27/19 04/27/19 03:15 05:01 05:47 Temperature 97.3 F L Pulse Rate 99 H Respiratory 18 18 18 Rate Blood Pressure 135/85 O2 Sat by Pulse 100 Oximetry 04/27/19 04/27/19 06:17 11:54 Temperature 98.5 F Pulse Rate 95 H Respiratory 18 18 Rate Blood Pressure 127/81 O2 Sat by Pulse 100 Oximetry Constitutional: no acute distress, alert Eyes: non-icteric ENT: oropharynx moist Neck: supple Effort: normal Ascultation: Bilateral: diminished breath sounds Cardiovascular: regular rate and rhythm Gastrointestinal: normoactive bowel sounds, soft, non-tender Integumentary: normal Extremities: no cyanosis, other (R lower leg appears bigger than left leg) Psychiatric: mood appropriate CBC and BMP: 04/27/19 04:20 04/27/19 04:20 ABG, PT/INR, D-dimer: PT/INR, D-dimer PT 28.4 Sec. (12.2-14.9) H 04/27/19 04:20 INR 2.72 (0.87-1.13) H 04/27/19 04:20 Abnormal lab findings: Abnormal Labs 04/21/19 04/21/19 04/21/19 12:31 12:31 15:35 WBC RBC 2.69 L Hgb 6.8 L 6.3 L Hct 21.2 L 18.7 L* MCH 25 L RDW 16.8 H Plt Count 617 H 500 H Lymph % (Auto) Seg Neutrophils % Seg Neutrophils # PT INR APTT Activated Clotting Time Antithrombin III Ag Heparin Anti-Xa Level BUN 5 L Creatinine Glucose Iron AST Albumin 3.4 L Folate Crossmatch 04/21/19 04/21/19 04/22/19 15:35 15:45 08:16 WBC RBC Hgb Hct MCH RDW Plt Count Lymph % (Auto) Seg Neutrophils % Seg Neutrophils # PT INR 1.15 H APTT 73.3 H* Activated Clotting Time Antithrombin III Ag Heparin Anti-Xa Level BUN 6 L Creatinine 0.6 L Glucose Iron AST 41 H Albumin 2.9 L Folate Crossmatch See Detail 04/22/19 04/22/19 04/22/19 09:11 13:38 22:20 WBC RBC 3.06 L Hgb 8.0 L Hct 24.6 L MCH 26 L RDW 16.9 H Plt Count 532 H Lymph % (Auto) Seg Neutrophils % Seg Neutrophils # PT INR APTT Activated Clotting Time 180 H Antithrombin III Ag Heparin Anti-Xa Level < 0.10 L BUN Creatinine Glucose Iron AST Albumin Folate Crossmatch 04/23/19 04/23/19 04/23/19 06:13 07:58 07:58 WBC RBC Hgb 7.8 L Hct 24.4 L MCH RDW Plt Count 561 H Lymph % (Auto) Seg Neutrophils % Seg Neutrophils # PT INR APTT Activated Clotting Time Antithrombin III Ag Heparin Anti-Xa Level BUN Creatinine Glucose Iron 26 L AST Albumin Folate 4.02 L Crossmatch 04/23/19 04/23/19 04/23/19 07:58 11:15 11:36 WBC RBC Hgb 7.8 L Hct 24.4 L MCH RDW Plt Count 548 H Lymph % (Auto) Seg Neutrophils % Seg Neutrophils # PT INR APTT Activated Clotting Time 191 H 202 H Antithrombin III Ag Heparin Anti-Xa Level BUN Creatinine Glucose Iron AST Albumin Folate Crossmatch 04/23/19 04/23/19 04/23/19 12:06 15:47 19:21 WBC RBC Hgb 7.0 L Hct 21.3 L MCH RDW Plt Count Lymph % (Auto) Seg Neutrophils % Seg Neutrophils # PT INR APTT 85.3 H* Activated Clotting Time 208 H Antithrombin III Ag Heparin Anti-Xa Level BUN Creatinine Glucose Iron AST Albumin Folate Crossmatch 04/23/19 04/24/19 04/24/19 Unknown 04:24 04:24 WBC 15.6 H RBC 2.50 L Hgb 6.6 L Hct 20.1 L MCH 26 L RDW 17.7 H Plt Count 502 H Lymph % (Auto) 11.5 L Seg Neutrophils % 83.2 H Seg Neutrophils # 12.9 H PT INR APTT Activated Clotting Time Antithrombin III Ag 76 L Heparin Anti-Xa Level BUN Creatinine Glucose 105 H Iron AST Albumin Folate Crossmatch 04/24/19 04/24/19 04/24/19 10:00 16:42 16:42 WBC RBC Hgb 6.6 L Hct 20.3 L MCH RDW Plt Count Lymph % (Auto) Seg Neutrophils % Seg Neutrophils # PT 24.3 H INR 2.23 H APTT 69.4 H* Activated Clotting Time Antithrombin III Ag Heparin Anti-Xa Level BUN Creatinine Glucose Iron AST Albumin Folate Crossmatch 04/24/19 04/25/19 04/25/19 21:00 05:12 05:12 WBC 11.6 H RBC 3.02 L Hgb 8.2 L Hct 25.2 L MCH 27 L RDW 18.2 H Plt Count 447 H Lymph % (Auto) Seg Neutrophils % 74.4 H Seg Neutrophils # 8.6 H PT 22.6 H INR 2.04 H APTT 65.5 H* Activated Clotting Time Antithrombin III Ag Heparin Anti-Xa Level BUN Creatinine Glucose Iron AST Albumin Folate Crossmatch 04/25/19 04/25/19 04/26/19 05:12 21:19 04:46 WBC RBC Hgb Hct MCH RDW Plt Count Lymph % (Auto) Seg Neutrophils % Seg Neutrophils # PT INR 1.20 H APTT 55.5 H 47.5 H Activated Clotting Time Antithrombin III Ag Heparin Anti-Xa Level BUN Creatinine Glucose Iron AST Albumin Folate Crossmatch 04/26/19 04/26/19 04/27/19 13:27 22:26 04:20 WBC RBC 3.28 L Hgb 9.9 L 8.7 L Hct 27.0 L MCH 27 L 27 L RDW 18.3 H 17.8 H Plt Count 568 H 514 H Lymph % (Auto) Seg Neutrophils % Seg Neutrophils # PT INR APTT 126.1 H* Activated Clotting Time Antithrombin III Ag Heparin Anti-Xa Level BUN Creatinine Glucose Iron AST Albumin Folate Crossmatch 04/27/19 04/27/19 04/27/19 04:20 04:20 04:20 WBC RBC Hgb Hct MCH RDW Plt Count Lymph % (Auto) Seg Neutrophils % Seg Neutrophils # PT 28.4 H INR 2.72 H APTT 62.1 H* Activated Clotting Time Antithrombin III Ag Heparin Anti-Xa Level BUN 5 L Creatinine 0.6 L Glucose Iron AST Albumin Folate Crossmatch Chest x-ray: report reviewed, image reviewed (No acute puolmonary findings.)
[2019-04-27] MEDS: COUMADIN PO SCH (16:41)
[2019-04-28] MEDS: DILAUDID IV PRN ×5 (01:29→22:27)
[2019-04-28] MEDS: ARGATROBAN 250 MG in NACL 0.9% 250ML 247.5 ML IV SCH (05:49)
[2019-04-28 06:23] LABS: INR 2.86 (0.87-1.13)
[2019-04-28 06:28] LABS: Partial Thromboplastin Time 90.1 Sec. (24.2-36.6)
--- NOTE | 2019-04-28 07:02 | Hem/Onc Progress Note ---
Assessment and Plan 1. Right arterial thrombus. History of travel present. The patient says prior to the [place] trip she had right leg pain. 2. Anemia. The patient says she has been anemic for a long time, low folate, low iron. 3. Status post vascular team procedure. 4. The patient's right foot was cold. 5. Transfusion support as needed. 6. I discussed with patient regarding quitting smoking. 7. Obesity. h/o gastric sx - 2016 IV iron folate on argatroban eliquis an option as oral agent - Warfarin started as per vascular team will do hypercoag Ix as OP adv s/l b12 as OP will look into IV iron as OP vascular note 04/26 mentions Patient had intolerance of heparin during second embolectomy (greater than 20,000 units provided) and still thrombosed intraoperatively requiring escalation to Agatroban. Continue Agatroban. On warfarin. Recommend aspirin for life as well. Patient has mild foot drop and some numbness of her toes with the foot drop unchanged from presentation upon further questioning, and the numbness of her toes unchanged from her first reocclusion upon further questioning. 04/28 s/p iv iron 04/27 will await for targetting of INR - pharmacy dosing warfarin when pt is on argatroban and coumadin the target INR is high ct ASA the plan will be to use warfarin for some time and later evaluate if eliquis can be used as OP - Patient Problems (1) Anemia Current Visit: Yes Status: Acute Qualifiers: Anemia type: iron deficiency (2) Popliteal artery embolism, right Current Visit: Yes Status: Acute Subjective Date of service: 04/28/19 Principal diagnosis: rt leg arterial thrombus Interval history: rt leg warm Objective - Exam Narrative Exam: Pain - none General appearance - breathing better Performance status limited self care Eyes - no icterus, pallor + ENT - no bleeding LNs cervical not palpable Neck - no LN Respiratory Normal Breath sounds - CTA CVS S1 S2 + Extremities no calf tenderness General GI Soft Rectal deferred female - deferred Skin warm Musculoskeletal moving extremitites Neurologically awake - oriented - Constitutional Vitals: Last Vital Signs Temp 97.5 F L 04/28/19 05:09 Pulse 86 04/28/19 05:09 Resp 18 04/28/19 06:20 BP 118/83 04/28/19 05:09 Pulse Ox 99 04/28/19 05:09 - Labs Lab Results: Laboratory Results - last 24 hr 04/27/19 04/28/19 18:23 05:30 PT 29.5 H INR 2.86 H APTT 82.2 H* 90.1 H* Medications & Allergies - Medications Allergies/Adverse Reactions: Allergies No Known Allergies Allergy (Unverified 12/16/14 00:11) Home Medications: Home Medications Medication Instructions Recorded Confirmed Last Taken Type Fluticasone Propionate [Flonase] 2 sprays NS QDAY #1 bottle 12/16/14 Unknown Rx Loratadine [Claritin] 10 mg PO DAILY #30 tablet 12/16/14 04/25/19 Unknown Rx predniSONE [Deltasone] 40 mg PO QDAY #10 tab 12/16/14 04/25/19 Unknown Rx Active Medications: Generic Name Dose Route Start Last Admin Trade Name Freq PRN Reason Stop Dose Admin Acetaminophen 650 mg 04/21/19 15:12 Tylenol PO Q4H PRN Pain MILD(1-3)/Fever >100.5/VIVAR Albuterol 2.5 mg 04/21/19 15:12 Proventil IH Q4HRT PRN Shortness Of Breath Aspirin 81 mg 04/23/19 10:00 04/27/19 11:17 Halfprin Ec PO 81 mg QDAY RUTHIE Administration Fluticasone Propionate 50 mcg 04/22/19 10:00 04/27/19 11:16 Flonase NS 50 mcg QDAY RUTHIE Administration Folic Acid 1 mg 04/24/19 13:00 04/27/19 11:15 Folvite PO 1 mg QDAY RUTHIE Administration Hydromorphone HCl 0.5 mg 04/25/19 18:00 04/28/19 05:50 Dilaudid IV 0.5 mg Q4H PRN Administration Pain , Severe (7-10) Argatroban 250 mg/ Sodium 250 mls @ 14.724 mls/hr 04/26/19 10:00 04/28/19 06:29 Chloride IV 0.5 mcg/kg/min TITR RUTHIE 3.681 mls/hr Titration Protocol 2 MCG/KG/MIN Loratadine 10 mg 04/22/19 10:00 04/27/19 11:15 Claritin PO 10 mg DAILY RUTHIE Administration Naloxone HCl 0.1 mg 04/22/19 14:18 Narcan 0.4 Mg/1 Ml IV Q2MIN PRN Res Rate </= 8 or 02 SAT < 92% Ondansetron HCl 4 mg 04/21/19 15:12 04/26/19 20:37 Zofran IV 4 mg Q8H PRN Administration Nausea And Vomiting Oxycodone/Acetaminophen 2 tab 04/25/19 09:52 04/27/19 21:58 Percocet 5/325 PO 2 tab Q4H PRN Administration Pain, Moderate (4-6) Pantoprazole Sodium 40 mg 04/25/19 12:00 04/27/19 21:58 Protonix PO 40 mg BID RUTHIE Administration Polyethylene Glycol 17 gm 04/25/19 10:00 04/27/19 11:16 Miralax 3350 PO 17 gm QDAY RUTHIE Administration Sodium Chloride 10 ml 04/21/19 22:00 04/27/19 21:58 Sodium Chloride Flush Syringe 10 Ml IV 10 ml BID RUTHIE Administration Sodium Chloride 10 ml 04/21/19 15:12 Sodium Chloride Flush Syringe 10 Ml IV PRN PRN LINE FLUSH Warfarin Sodium 10 mg 04/26/19 17:00 04/27/19 16:41 Coumadin PO 10 mg DAILY@1700 RUTHIE Administration
[2019-04-28] MEDS: HALFPRIN EC PO SCH (09:18)
[2019-04-28] MEDS: PERCOCET 5/325 PO PRN (09:18)
[2019-04-28] MEDS: PROTONIX PO SCH ×2 (09:18→22:27)
[2019-04-28] MEDS: MIRALAX 3350 PO SCH (09:18)
[2019-04-28] MEDS: FOLVITE PO SCH (09:18)
[2019-04-28] MEDS: CLARITIN PO SCH (09:18)
[2019-04-28] MEDS: FLONASE NS SCH (09:19)
[2019-04-28] MEDS: SODIUM CHLORIDE FLUSH SYRINGE 10 ML IV SCH (09:20)
--- NOTE | 2019-04-28 10:05 | Progress Note ---
Assessment and Plan Assessment and plan: 33 YO Female with Obesity,Nicotine Dependence, Anemia presents to ED for evaluation. Pt states that she has experienced pain in her right leg. Pt states that pain is 8/10, worsened with rest, improved with movement and elevation. Pt states that she has experienced pain over the past 1 week, with worsening symptoms over the past 2 days. Pt transported to [facility] via private vehicle. Pt seen and evaluated in ED and found to have Right Popliteal Artery Occlusion. Pt initiated on heparin drip. Vascular surgery team consulted in ED. Popliteal artery embolism, right with LE ischemia Placed on Heparin drip, Vascular surgery consulted, s/p Right Femoal-popliteal Embolectomy on 04/22 repeat US showed rethrombosis - taken to OR emergenty for revascularization on 04/23/19 - s/p embolectomy 2 with AngioJet thrombectomy. Placed on argatobran drip along with coumadin per vascular as patient might have failed Rx on heparin- monitor INR, d/anjelica heparin d/c Argatroban when INR 4.0 and dc home as per Vasc Surg Nicotine abuse Smoking cessation counseling done, supportive care. Nicotine patch if needed Obesity (BMI 30-39.9) Balanced diet, increased physical activity at discharge, Anemia, POA Likely acute on chronic and folate deficiency s/p 4 units of PRBC transfusion, no active bleeding replacing folate DVT prophylaxis SCD to BLE while in bed, therapeutic anticoagulation. Will stop argatroban when INR 4.90 and dc home as per Vasc surg I discussed with Pharmacist to increase dose of Coumadin History Interval history: Less pain right leg Asking when she is going home Hospitalist Physical - Physical exam Narrative exam: Gen: Not in acute distress, morbidly obese, lying in bed,morbidly obese HEENT: Normocephalic, atraumatic Neck: supple, no JVD Heart: S1 and S2 reg, no murmurs, rubs or gallop Lungs: Clear to auscultation, no rhonchi, no wheeze Abd: soft, non tender, non distended, normal BS, Ext: Mild tender right leg, Neuro: Awake, alert, oriented X 3, no focal neurological signs - Constitutional Vitals: Temp Pulse Resp BP Pulse Ox 97.5 F L 86 18 118/83 99 04/28/19 05:09 04/28/19 05:09 04/28/19 06:20 04/28/19 05:09 04/28/19 05:09 General appearance: Present: no acute distress Results - Labs CBC & Chem 7: 04/27/19 04:20 04/27/19 04:20 Labs: Laboratory Last Values WBC 6.3 K/mm3 (4.5-11.0) 04/27/19 04:20 RBC 3.28 M/mm3 (3.65-5.03) L 04/27/19 04:20 Hgb 8.7 gm/dl (10.1-14.3) L 04/27/19 04:20 Hct 27.0 % (30.3-42.9) L 04/27/19 04:20 MCV 83 fl (79-97) 04/27/19 04:20 MCH 27 pg (28-32) L 04/27/19 04:20 MCHC 32 % (30-34) 04/27/19 04:20 RDW 17.8 % (13.2-15.2) H 04/27/19 04:20 Plt Count 514 K/mm3 (140-440) H 04/27/19 04:20 Lymph % (Auto) 23.7 % (13.4-35.0) 04/27/19 04:20 Nuckolls % (Auto) 5.7 % (0.0-7.3) 04/27/19 04:20 Eos % (Auto) 1.9 % (0.0-4.3) 04/27/19 04:20 Baso % (Auto) 1.2 % (0.0-1.8) 04/27/19 04:20 Lymph # 1.5 K/mm3 (1.2-5.4) 04/27/19 04:20 Nuckolls # 0.4 K/mm3 (0.0-0.8) 04/27/19 04:20 Eos # 0.1 K/mm3 (0.0-0.4) 04/27/19 04:20 Baso # 0.1 K/mm3 (0.0-0.1) 04/27/19 04:20 Seg Neutrophils % 67.5 % (40.0-70.0) 04/27/19 04:20 Seg Neutrophils # 4.2 K/mm3 (1.8-7.7) 04/27/19 04:20 PT 29.5 Sec. (12.2-14.9) H 04/28/19 05:30 INR 2.86 (0.87-1.13) H 04/28/19 05:30 APTT 90.1 Sec. (24.2-36.6) H* 04/28/19 05:30 208 (74-137) H 04/23/19 12:06 Antithrombin III Ag 76 % (80-120) L 04/23/19 Unknown Heparin Anti-Xa Level < 0.10 U.I./ml (0.3-0.7) L 04/22/19 22:20 Sodium 140 mmol/L (137-145) 04/27/19 04:20 Potassium 4.1 mmol/L (3.6-5.0) 04/27/19 04:20 Chloride 103.2 mmol/L (98-107) 04/27/19 04:20 Carbon Dioxide 27 mmol/L (22-30) 04/27/19 04:20 14 mmol/L 04/27/19 04:20 BUN 5 mg/dL (7-17) L 04/27/19 04:20 0.6 mg/dL (0.7-1.2) L 04/27/19 04:20 Estimated GFR > 60 ml/min 04/27/19 04:20 8 % 04/27/19 04:20 Glucose 94 mg/dL (65-100) 04/27/19 04:20 Calcium 8.8 mg/dL (8.4-10.2) 04/27/19 04:20 Iron 26 ug/dL (37-170) L 04/23/19 07:58 TIBC 289 mcg/dL (250-450) 04/23/19 07:58 95.6 ng/mL (13.0-400.0) 04/23/19 07:58 0.50 mg/dL (0.1-1.2) 04/22/19 08:16 AST 41 units/L (5-40) H 04/22/19 08:16 ALT 34 units/L (7-56) 04/22/19 08:16 48 units/L (35-129) 04/22/19 08:16 6.4 g/dL (6.3-8.2) 04/22/19 08:16 2.9 g/dL (3.9-5) L 04/22/19 08:16 0.8 % 04/22/19 08:16 Vitamin B12 466.0 pg/mL (211-911) 04/23/19 07:58 4.02 ng/mL (7.3-26.0) L 04/23/19 07:58 HCG, Qual Negative (Negative) 04/21/19 12:31 Blood Type B POSITIVE 04/21/19 15:45 Antibody Screen Negative 04/21/19 15:45 Crossmatch See Detail 04/21/19 15:45 Active Medications - Current Medications Current Medications: Generic Name Dose Route Start Last Admin Trade Name Freq PRN Reason Stop Dose Admin Acetaminophen 650 mg 04/21/19 15:12 Tylenol PO Q4H PRN Pain MILD(1-3)/Fever >100.5/VIVAR Albuterol 2.5 mg 04/21/19 15:12 Proventil IH Q4HRT PRN Shortness Of Breath Aspirin 81 mg 04/23/19 10:00 04/28/19 09:18 Halfprin Ec PO 81 mg QDAY RUTHIE Administration Fluticasone Propionate 50 mcg 04/22/19 10:00 04/28/19 09:19 Flonase NS 50 mcg QDAY RUTHIE Administration Folic Acid 1 mg 04/24/19 13:00 04/28/19 09:18 Folvite PO 1 mg QDAY RUTHIE Administration Hydromorphone HCl 0.5 mg 04/25/19 18:00 04/28/19 05:50 Dilaudid IV 0.5 mg Q4H PRN Administration Pain , Severe (7-10) Argatroban 250 mg/ Sodium 250 mls @ 14.724 mls/hr 04/26/19 10:00 04/28/19 06:29 Chloride IV 0.5 mcg/kg/min TITR RUTHIE 3.681 mls/hr Titration Protocol 2 MCG/KG/MIN Loratadine 10 mg 04/22/19 10:00 04/28/19 09:18 Claritin PO 10 mg DAILY RUTHIE Administration Naloxone HCl 0.1 mg 04/22/19 14:18 Narcan 0.4 Mg/1 Ml IV Q2MIN PRN Res Rate </= 8 or 02 SAT < 92% Ondansetron HCl 4 mg 04/21/19 15:12 04/26/19 20:37 Zofran IV 4 mg Q8H PRN Administration Nausea And Vomiting Oxycodone/Acetaminophen 2 tab 04/25/19 09:52 04/28/19 09:18 Percocet 5/325 PO 2 tab Q4H PRN Administration Pain, Moderate (4-6) Pantoprazole Sodium 40 mg 04/25/19 12:00 04/28/19 09:18 Protonix PO 40 mg BID RUTHIE Administration Polyethylene Glycol 17 gm 04/25/19 10:00 04/28/19 09:18 Miralax 3350 PO 17 gm QDAY RUTHIE Administration Sodium Chloride 10 ml 04/21/19 22:00 04/28/19 09:20 Sodium Chloride Flush Syringe 10 Ml IV 10 ml BID RUTHIE Administration Sodium Chloride 10 ml 04/21/19 15:12 Sodium Chloride Flush Syringe 10 Ml IV PRN PRN LINE FLUSH Warfarin Sodium 10 mg 04/26/19 17:00 04/27/19 16:41 Coumadin PO 10 mg DAILY@1700 RUTHIE Administration Nutrition/Malnutrition Assess - Dietary Evaluation Nutrition/Malnutrition Findings: Nutrition Notes Start: 04/26/19 14:16 Freq: Status: Active Protocol: Document 04/26/19 14:16 OH (Rec: 04/26/19 14:17 OH [id number]) Nutrition Notes Need for Assessment generated from: Education Initial or Follow up Brief Note Subjective/Other Information RD consulted for coumadin education. Education per pt has been provided previously while hospitalized. Nutrition Intervention Revisit per MD consult or patient Sign Off request:
--- NOTE | 2019-04-28 13:52 | Progress Note ---
Subjective Date of service: 04/28/19 Principal diagnosis: rt leg arterial thrombus Interval history: s/p right leg revascularization right foot remains warm and well perfused palpable pedal pulses on the right continue OAC incision c/d/i with sunday f/u 2 weeks Objective - Constitutional Vitals: Vital Signs - 12hr 04/28/19 04/28/19 04/28/19 01:59 05:09 05:50 Temperature 97.5 F L Pulse Rate 86 Respiratory 18 18 Rate Blood Pressure 118/83 O2 Sat by Pulse 99 Oximetry 04/28/19 04/28/19 06:20 12:12 Temperature 97.3 F L Pulse Rate 98 H Respiratory 18 16 Rate Blood Pressure 122/61 O2 Sat by Pulse 99 Oximetry - Labs CBC & Chem 7: 04/27/19 04:20 04/27/19 04:20 Labs: Abnormal lab results 04/27/19 04/28/19 04/28/19 Range/Units 18:23 05:30 10:41 PT 29.5 H (12.2-14.9) Sec. INR 2.86 H (0.87-1.13) APTT 82.2 H* 90.1 H* 77.3 H* (24.2-36.6) Sec. Medications & Allergies - Medications Allergies/Adverse Reactions: Allergies No Known Allergies Allergy (Unverified 12/16/14 00:11) Home Medications: Home Medications Medication Instructions Recorded Confirmed Last Taken Type Fluticasone Propionate [Flonase] 2 sprays NS QDAY #1 bottle 12/16/14 Unknown Rx Loratadine [Claritin] 10 mg PO DAILY #30 tablet 12/16/14 04/25/19 Unknown Rx predniSONE [Deltasone] 40 mg PO QDAY #10 tab 12/16/14 04/25/19 Unknown Rx Active Medications: Generic Name Dose Route Start Last Admin Trade Name Freq PRN Reason Stop Dose Admin Acetaminophen 650 mg 04/21/19 15:12 Tylenol PO Q4H PRN Pain MILD(1-3)/Fever >100.5/VIVAR Albuterol 2.5 mg 04/21/19 15:12 Proventil IH Q4HRT PRN Shortness Of Breath Aspirin 81 mg 04/23/19 10:00 04/28/19 09:18 Halfprin Ec PO 81 mg QDAY RUTHIE Administration Fluticasone Propionate 50 mcg 04/22/19 10:00 04/28/19 09:19 Flonase NS 50 mcg QDAY RUTHIE Administration Folic Acid 1 mg 04/24/19 13:00 04/28/19 09:18 Folvite PO 1 mg QDAY RUTHIE Administration Hydromorphone HCl 0.5 mg 04/25/19 18:00 04/28/19 13:32 Dilaudid IV 0.5 mg Q4H PRN Administration Pain , Severe (7-10) Argatroban 250 mg/ Sodium 250 mls @ 14.724 mls/hr 04/26/19 10:00 04/28/19 10:30 Chloride IV 0.5 mcg/kg/min TITR RUTHIE 3.681 mls/hr Titration Protocol 2 MCG/KG/MIN Loratadine 10 mg 04/22/19 10:00 04/28/19 09:18 Claritin PO 10 mg DAILY RUTHIE Administration Naloxone HCl 0.1 mg 04/22/19 14:18 Narcan 0.4 Mg/1 Ml IV Q2MIN PRN Res Rate </= 8 or 02 SAT < 92% Ondansetron HCl 4 mg 04/21/19 15:12 04/26/19 20:37 Zofran IV 4 mg Q8H PRN Administration Nausea And Vomiting Oxycodone/Acetaminophen 2 tab 04/25/19 09:52 04/28/19 09:18 Percocet 5/325 PO 2 tab Q4H PRN Administration Pain, Moderate (4-6) Pantoprazole Sodium 40 mg 04/25/19 12:00 04/28/19 09:18 Protonix PO 40 mg BID RUTHIE Administration Polyethylene Glycol 17 gm 04/25/19 10:00 04/28/19 09:18 Miralax 3350 PO 17 gm QDAY RUTHIE Administration Sodium Chloride 10 ml 04/21/19 22:00 04/28/19 09:20 Sodium Chloride Flush Syringe 10 Ml IV 10 ml BID RUTHIE Administration Sodium Chloride 10 ml 04/21/19 15:12 Sodium Chloride Flush Syringe 10 Ml IV PRN PRN LINE FLUSH Warfarin Sodium 10 mg 04/26/19 17:00 04/27/19 16:41 Coumadin PO 10 mg DAILY@1700 [facility] Administration Warfarin Sodium 2.5 mg 04/28/19 17:00 Coumadin PO DAILY@1700 [facility]
[2019-04-28] MEDS: COUMADIN PO SCH ×2 (17:14)
--- NOTE | 2019-04-28 19:46 | Progress Note ---
Assessment and Plan Patient alert and awake in no acute respiratory distress. Resting on room air. O2 saturation 99%. Patient diagnosed with R lower ext DVT. Patient now on argatroban. Also started on PO coumadin. Patients INR is in therapeutic range. Can stop argatroban. Afebrile, no leukocytosis. - Patient Problems (1) Popliteal artery embolism, right Current Visit: Yes Status: Acute Plan to address problem: Patient is on argatroban. Patient started on PO coumadin. INR 2.86. Can stop Argatroban (2) Anemia Current Visit: Yes Status: Acute Qualifiers: Anemia type: iron deficiency Plan to address problem: Hgb 8.7. Hct 27. Continue management as per primary care. (3) Nicotine dependence unspecified, with withdrawal Current Visit: Yes Status: Acute Qualifiers: Nicotine product type: cigarettes Qualified Code(s): F17.213 - Nicotine dependence, cigarettes, with withdrawal Plan to address problem: Counseled to stop smoking. (4) Obesity (BMI 30-39.9) Current Visit: Yes Status: Acute Plan to address problem: Recommend to lose weight. Recommend diet and exercise. Recommend sleep study as outpatient. Subjective Date of service: 04/28/19 Principal diagnosis: rt leg arterial thrombus Interval history: Patient alert and awake in no acute respiratory distress. Resting on room air. O2 saturation 99%. Patient diagnosed with R lower ext DVT. Patient now on argatroban. Also started on PO coumadin. Patients INR is in therapeutic range. Can stop argatroban. Afebrile, no leukocytosis. Objective Vital Signs - 12hr 04/28/19 12:12 Temperature 97.3 F L Pulse Rate 98 H Respiratory 16 Rate Blood Pressure 122/61 O2 Sat by Pulse 99 Oximetry Constitutional: no acute distress, alert Eyes: non-icteric ENT: oropharynx moist Neck: supple Effort: normal Ascultation: Bilateral: diminished breath sounds Cardiovascular: regular rate and rhythm Gastrointestinal: normoactive bowel sounds, soft, non-tender Integumentary: normal Extremities: no cyanosis, other (R lower leg appears bigger than left leg) Psychiatric: mood appropriate CBC and BMP: 04/27/19 04:20 04/27/19 04:20 ABG, PT/INR, D-dimer: PT/INR, D-dimer PT 29.5 Sec. (12.2-14.9) H 04/28/19 05:30 INR 2.86 (0.87-1.13) H 04/28/19 05:30 Abnormal lab findings: Abnormal Labs 04/21/19 04/21/19 04/21/19 12:31 12:31 15:35 WBC RBC 2.69 L Hgb 6.8 L 6.3 L Hct 21.2 L 18.7 L* MCH 25 L RDW 16.8 H Plt Count 617 H 500 H Lymph % (Auto) Seg Neutrophils % Seg Neutrophils # PT INR APTT Activated Clotting Time Antithrombin III Ag Heparin Anti-Xa Level BUN 5 L Creatinine Glucose Iron AST Albumin 3.4 L Folate Crossmatch 04/21/19 04/21/19 04/22/19 15:35 15:45 08:16 WBC RBC Hgb Hct MCH RDW Plt Count Lymph % (Auto) Seg Neutrophils % Seg Neutrophils # PT INR 1.15 H APTT 73.3 H* Activated Clotting Time Antithrombin III Ag Heparin Anti-Xa Level BUN 6 L Creatinine 0.6 L Glucose Iron AST 41 H Albumin 2.9 L Folate Crossmatch See Detail 04/22/19 04/22/19 04/22/19 09:11 13:38 22:20 WBC RBC 3.06 L Hgb 8.0 L Hct 24.6 L MCH 26 L RDW 16.9 H Plt Count 532 H Lymph % (Auto) Seg Neutrophils % Seg Neutrophils # PT INR APTT Activated Clotting Time 180 H Antithrombin III Ag Heparin Anti-Xa Level < 0.10 L BUN Creatinine Glucose Iron AST Albumin Folate Crossmatch 04/23/19 04/23/19 04/23/19 06:13 07:58 07:58 WBC RBC Hgb 7.8 L Hct 24.4 L MCH RDW Plt Count 561 H Lymph % (Auto) Seg Neutrophils % Seg Neutrophils # PT INR APTT Activated Clotting Time Antithrombin III Ag Heparin Anti-Xa Level BUN Creatinine Glucose Iron 26 L AST Albumin Folate 4.02 L Crossmatch 04/23/19 04/23/19 04/23/19 07:58 11:15 11:36 WBC RBC Hgb 7.8 L Hct 24.4 L MCH RDW Plt Count 548 H Lymph % (Auto) Seg Neutrophils % Seg Neutrophils # PT INR APTT Activated Clotting Time 191 H 202 H Antithrombin III Ag Heparin Anti-Xa Level BUN Creatinine Glucose Iron AST Albumin Folate Crossmatch 04/23/19 04/23/19 04/23/19 12:06 15:47 19:21 WBC RBC Hgb 7.0 L Hct 21.3 L MCH RDW Plt Count Lymph % (Auto) Seg Neutrophils % Seg Neutrophils # PT INR APTT 85.3 H* Activated Clotting Time 208 H Antithrombin III Ag Heparin Anti-Xa Level BUN Creatinine Glucose Iron AST Albumin Folate Crossmatch 04/23/19 04/24/19 04/24/19 Unknown 04:24 04:24 WBC 15.6 H RBC 2.50 L Hgb 6.6 L Hct 20.1 L MCH 26 L RDW 17.7 H Plt Count 502 H Lymph % (Auto) 11.5 L Seg Neutrophils % 83.2 H Seg Neutrophils # 12.9 H PT INR APTT Activated Clotting Time Antithrombin III Ag 76 L Heparin Anti-Xa Level BUN Creatinine Glucose 105 H Iron AST Albumin Folate Crossmatch 04/24/19 04/24/19 04/24/19 10:00 16:42 16:42 WBC RBC Hgb 6.6 L Hct 20.3 L MCH RDW Plt Count Lymph % (Auto) Seg Neutrophils % Seg Neutrophils # PT 24.3 H INR 2.23 H APTT 69.4 H* Activated Clotting Time Antithrombin III Ag Heparin Anti-Xa Level BUN Creatinine Glucose Iron AST Albumin Folate Crossmatch 04/24/19 04/25/19 04/25/19 21:00 05:12 05:12 WBC 11.6 H RBC 3.02 L Hgb 8.2 L Hct 25.2 L MCH 27 L RDW 18.2 H Plt Count 447 H Lymph % (Auto) Seg Neutrophils % 74.4 H Seg Neutrophils # 8.6 H PT 22.6 H INR 2.04 H APTT 65.5 H* Activated Clotting Time Antithrombin III Ag Heparin Anti-Xa Level BUN Creatinine Glucose Iron AST Albumin Folate Crossmatch 04/25/19 04/25/19 04/26/19 05:12 21:19 04:46 WBC RBC Hgb Hct MCH RDW Plt Count Lymph % (Auto) Seg Neutrophils % Seg Neutrophils # PT INR 1.20 H APTT 55.5 H 47.5 H Activated Clotting Time Antithrombin III Ag Heparin Anti-Xa Level BUN Creatinine Glucose Iron AST Albumin Folate Crossmatch 04/26/19 04/26/19 04/27/19 13:27 22:26 04:20 WBC RBC 3.28 L Hgb 9.9 L 8.7 L Hct 27.0 L MCH 27 L 27 L RDW 18.3 H 17.8 H Plt Count 568 H 514 H Lymph % (Auto) Seg Neutrophils % Seg Neutrophils # PT INR APTT 126.1 H* Activated Clotting Time Antithrombin III Ag Heparin Anti-Xa Level BUN Creatinine Glucose Iron AST Albumin Folate Crossmatch 04/27/19 04/27/19 04/27/19 04:20 04:20 04:20 WBC RBC Hgb Hct MCH RDW Plt Count Lymph % (Auto) Seg Neutrophils % Seg Neutrophils # PT 28.4 H INR 2.72 H APTT 62.1 H* Activated Clotting Time Antithrombin III Ag Heparin Anti-Xa Level BUN 5 L Creatinine 0.6 L Glucose Iron AST Albumin Folate Crossmatch 04/27/19 04/28/19 04/28/19 18:23 05:30 10:41 WBC RBC Hgb Hct MCH RDW Plt Count Lymph % (Auto) Seg Neutrophils % Seg Neutrophils # PT 29.5 H INR 2.86 H APTT 82.2 H* 90.1 H* 77.3 H* Activated Clotting Time Antithrombin III Ag Heparin Anti-Xa Level BUN Creatinine Glucose Iron AST Albumin Folate Crossmatch Chest x-ray: report reviewed (NO ACUTE FINDINGS.), image reviewed
[2019-04-29] MEDS: SODIUM CHLORIDE FLUSH SYRINGE 10 ML IV SCH ×3 (02:05→22:12)
[2019-04-29] MEDS: DILAUDID IV PRN ×4 (02:09→22:15)
[2019-04-29 05:53] LABS: Hematocrit 27.1 % (30.3-42.9); Hemoglobin 8.8 gm/dl (10.1-14.3)
--- NOTE | 2019-04-29 07:43 | Hem/Onc Progress Note ---
Assessment and Plan 1. Right arterial thrombus. History of travel present. The patient says prior to the [place] trip she had right leg pain. 2. Anemia. The patient says she has been anemic for a long time, low folate, low iron. 3. Status post vascular team procedure. 4. The patient's right foot was cold. 5. Transfusion support as needed. 6. I discussed with patient regarding quitting smoking. 7. Obesity. h/o gastric sx - 2016 IV iron folate on argatroban eliquis an option as oral agent - Warfarin started as per vascular team will do hypercoag Ix as OP adv s/l b12 as OP will look into IV iron as OP vascular note 04/26 mentions Patient had intolerance of heparin during second embolectomy (greater than 20,000 units provided) and still thrombosed intraoperatively requiring escalation to Agatroban. Continue Agatroban. On warfarin. Recommend aspirin for life as well. Patient has mild foot drop and some numbness of her toes with the foot drop unchanged from presentation upon further questioning, and the numbness of her toes unchanged from her first reocclusion upon further questioning. 04/29 s/p iv iron 04/27 will await for targetting of INR - pharmacy dosing warfarin when pt is on argatroban and coumadin the target INR is high ct ASA the plan will be to use warfarin for some time and later evaluate if eliquis can be used as OP came my card d/w dr cho - Patient Problems (1) Anemia Current Visit: Yes Status: Acute Qualifiers: Anemia type: iron deficiency (2) Popliteal artery embolism, right Current Visit: Yes Status: Acute Subjective Date of service: 04/29/19 Principal diagnosis: arterial thrombus - anemia Interval history: on coumadin Objective - Exam Narrative Exam: Pain - none General appearance - breathing better Performance status limited self care Eyes - no icterus, pallor + ENT - no bleeding LNs cervical not palpable Neck - no LN Respiratory Normal Breath sounds - CTA CVS S1 S2 + Extremities no calf tenderness General GI Soft Rectal deferred female - deferred Skin warm Musculoskeletal moving extremitites Neurologically awake - oriented - Constitutional Vitals: Last Vital Signs Temp 98.8 F 04/29/19 05:25 Pulse 91 H 04/29/19 05:25 Resp 20 04/29/19 05:25 BP 118/73 04/29/19 05:25 Pulse Ox 98 04/29/19 05:25 - Labs Lab Results: Laboratory Results - last 24 hr 04/28/19 04/28/19 04/28/19 10:41 11:20 22:42 Hgb Hct Plt Count PT INR APTT 77.3 H* 85.9 H* POC Glucose 95 04/29/19 04/29/19 05:15 05:15 Hgb 8.8 L Hct 27.1 L Plt Count 511 H PT 30.6 H INR 3.00 H APTT POC Glucose Medications & Allergies - Medications Allergies/Adverse Reactions: Allergies No Known Allergies Allergy (Unverified 12/16/14 00:11) Home Medications: Home Medications Medication Instructions Recorded Confirmed Last Taken Type Fluticasone Propionate [Flonase] 2 sprays NS QDAY #1 bottle 12/16/14 Unknown Rx Loratadine [Claritin] 10 mg PO DAILY #30 tablet 12/16/14 04/25/19 Unknown Rx predniSONE [Deltasone] 40 mg PO QDAY #10 tab 12/16/14 04/25/19 Unknown Rx Active Medications: Generic Name Dose Route Start Last Admin Trade Name Freq PRN Reason Stop Dose Admin Acetaminophen 650 mg 04/21/19 15:12 Tylenol PO Q4H PRN Pain MILD(1-3)/Fever >100.5/VIVAR Albuterol 2.5 mg 04/21/19 15:12 Proventil IH Q4HRT PRN Shortness Of Breath Aspirin 81 mg 04/23/19 10:00 04/28/19 09:18 Halfprin Ec PO 81 mg QDAY RUTHIE Administration Fluticasone Propionate 50 mcg 04/22/19 10:00 04/28/19 09:19 Flonase NS 50 mcg QDAY RUTHIE Administration Folic Acid 1 mg 04/24/19 13:00 04/28/19 09:18 Folvite PO 1 mg QDAY RUTHIE Administration Hydromorphone HCl 0.5 mg 04/25/19 18:00 04/29/19 07:38 Dilaudid IV 0.5 mg Q4H PRN Administration Pain , Severe (7-10) Argatroban 250 mg/ Sodium 250 mls @ 14.724 mls/hr 04/26/19 10:00 04/28/19 10:30 Chloride IV 0.5 mcg/kg/min TITR RUTHIE 3.681 mls/hr Titration Protocol 2 MCG/KG/MIN Loratadine 10 mg 04/22/19 10:00 04/28/19 09:18 Claritin PO 10 mg DAILY RUTHIE Administration Naloxone HCl 0.1 mg 04/22/19 14:18 Narcan 0.4 Mg/1 Ml IV Q2MIN PRN Res Rate </= 8 or 02 SAT < 92% Ondansetron HCl 4 mg 04/21/19 15:12 04/26/19 20:37 Zofran IV 4 mg Q8H PRN Administration Nausea And Vomiting Oxycodone/Acetaminophen 2 tab 04/25/19 09:52 04/28/19 09:18 Percocet 5/325 PO 2 tab Q4H PRN Administration Pain, Moderate (4-6) Pantoprazole Sodium 40 mg 04/25/19 12:00 04/28/19 22:27 Protonix PO 40 mg BID RUTHIE Administration Polyethylene Glycol 17 gm 04/25/19 10:00 04/28/19 09:18 Miralax 3350 PO 17 gm QDAY RUTHIE Administration Sodium Chloride 10 ml 04/21/19 22:00 04/29/19 02:05 Sodium Chloride Flush Syringe 10 Ml IV 10 ml BID RUTHIE Administration Sodium Chloride 10 ml 04/21/19 15:12 Sodium Chloride Flush Syringe 10 Ml IV PRN PRN LINE FLUSH Warfarin Sodium 10 mg 04/26/19 17:00 04/28/19 17:14 Coumadin PO 10 mg DAILY@1700 RUTHIE Administration Warfarin Sodium 2.5 mg 04/28/19 17:00 04/28/19 17:14 Coumadin PO 2.5 mg DAILY@1700 RUTHIE Administration
--- NOTE | 2019-04-29 09:39 | Progress Note ---
Assessment and Plan Assessment and plan: 33 YO Female with Obesity,Nicotine Dependence, Anemia presents to ED for evaluation. Pt states that she has experienced pain in her right leg. Pt states that pain is 8/10, worsened with rest, improved with movement and elevation. Pt states that she has experienced pain over the past 1 week, with worsening symptoms over the past 2 days. Pt transported to [facility] via private vehicle. Pt seen and evaluated in ED and found to have Right Popliteal Artery Occlusion. Pt initiated on heparin drip. Vascular surgery team consulted in ED. Popliteal artery embolism, right with LE ischemia Placed on Heparin drip, Vascular surgery consulted, s/p Right Femoal-popliteal Embolectomy on 04/22 repeat US showed rethrombosis - taken to OR emergenty for revascularization on 04/23/19 - s/p embolectomy 2 with AngioJet thrombectomy. Placed on argatobran drip along with coumadin per vascular as patient might have failed Rx on heparin- monitor INR, d/anjelica heparin d/c Argatroban when INR 4.0 and dc home as per Vasc Surg INR 3.0 today Nicotine abuse Smoking cessation counseling done, supportive care. Nicotine patch if needed Obesity (BMI 30-39.9) Balanced diet, increased physical activity at discharge, Anemia, POA Likely acute on chronic and folate deficiency s/p 4 units of PRBC transfusion, no active bleeding replacing folate DVT prophylaxis SCD to BLE while in bed, therapeutic anticoagulation. Will stop argatroban when INR 4.0 and dc home as per Vasc surg History Interval history: Less pain right leg no fever Hospitalist Physical - Physical exam Narrative exam: Gen: Not in acute distress, morbidly obese, lying in bed,morbidly obese HEENT: Normocephalic, atraumatic Neck: supple, no JVD Heart: S1 and S2 reg, no murmurs, rubs or gallop Lungs: Clear to auscultation, no rhonchi, no wheeze Abd: soft, non tender, non distended, normal BS, Ext: Mild tender right leg, Neuro: Awake, alert, oriented X 3, no focal neurological signs - Constitutional Vitals: Temp Pulse Resp BP Pulse Ox 98.8 F 91 H 20 118/73 98 04/29/19 05:25 04/29/19 05:25 04/29/19 05:25 04/29/19 05:25 04/29/19 05:25 General appearance: Present: no acute distress Results - Labs CBC & Chem 7: 04/29/19 05:15 04/27/19 04:20 Labs: Laboratory Last Values WBC 6.3 K/mm3 (4.5-11.0) 04/27/19 04:20 RBC 3.28 M/mm3 (3.65-5.03) L 04/27/19 04:20 Hgb 8.8 gm/dl (10.1-14.3) L 04/29/19 05:15 Hct 27.1 % (30.3-42.9) L 04/29/19 05:15 MCV 83 fl (79-97) 04/27/19 04:20 MCH 27 pg (28-32) L 04/27/19 04:20 MCHC 32 % (30-34) 04/27/19 04:20 RDW 17.8 % (13.2-15.2) H 04/27/19 04:20 Plt Count 511 K/mm3 (140-440) H 04/29/19 05:15 Lymph % (Auto) 23.7 % (13.4-35.0) 04/27/19 04:20 Collin % (Auto) 5.7 % (0.0-7.3) 04/27/19 04:20 Eos % (Auto) 1.9 % (0.0-4.3) 04/27/19 04:20 Baso % (Auto) 1.2 % (0.0-1.8) 04/27/19 04:20 Lymph # 1.5 K/mm3 (1.2-5.4) 04/27/19 04:20 Collin # 0.4 K/mm3 (0.0-0.8) 04/27/19 04:20 Eos # 0.1 K/mm3 (0.0-0.4) 04/27/19 04:20 Baso # 0.1 K/mm3 (0.0-0.1) 04/27/19 04:20 Seg Neutrophils % 67.5 % (40.0-70.0) 04/27/19 04:20 Seg Neutrophils # 4.2 K/mm3 (1.8-7.7) 04/27/19 04:20 PT 30.6 Sec. (12.2-14.9) H 04/29/19 05:15 INR 3.00 (0.87-1.13) H 04/29/19 05:15 APTT 85.9 Sec. (24.2-36.6) H* 04/28/19 22:42 208 (74-137) H 04/23/19 12:06 Antithrombin III Ag 76 % (80-120) L 04/23/19 Unknown Heparin Anti-Xa Level < 0.10 U.I./ml (0.3-0.7) L 04/22/19 22:20 Sodium 140 mmol/L (137-145) 04/27/19 04:20 Potassium 4.1 mmol/L (3.6-5.0) 04/27/19 04:20 Chloride 103.2 mmol/L (98-107) 04/27/19 04:20 Carbon Dioxide 27 mmol/L (22-30) 04/27/19 04:20 14 mmol/L 04/27/19 04:20 BUN 5 mg/dL (7-17) L 04/27/19 04:20 0.6 mg/dL (0.7-1.2) L 04/27/19 04:20 Estimated GFR > 60 ml/min 04/27/19 04:20 8 % 04/27/19 04:20 Glucose 94 mg/dL (65-100) 04/27/19 04:20 POC Glucose 95 (70-105) 04/28/19 11:20 Calcium 8.8 mg/dL (8.4-10.2) 04/27/19 04:20 Iron 26 ug/dL (37-170) L 04/23/19 07:58 TIBC 289 mcg/dL (250-450) 04/23/19 07:58 95.6 ng/mL (13.0-400.0) 04/23/19 07:58 0.50 mg/dL (0.1-1.2) 04/22/19 08:16 AST 41 units/L (5-40) H 04/22/19 08:16 ALT 34 units/L (7-56) 04/22/19 08:16 48 units/L (35-129) 04/22/19 08:16 6.4 g/dL (6.3-8.2) 04/22/19 08:16 2.9 g/dL (3.9-5) L 04/22/19 08:16 0.8 % 04/22/19 08:16 Vitamin B12 466.0 pg/mL (211-911) 04/23/19 07:58 4.02 ng/mL (7.3-26.0) L 04/23/19 07:58 HCG, Qual Negative (Negative) 04/21/19 12:31 Blood Type B POSITIVE 04/21/19 15:45 Antibody Screen Negative 04/21/19 15:45 Crossmatch See Detail 04/21/19 15:45 Active Medications - Current Medications Current Medications: Generic Name Dose Route Start Last Admin Trade Name Freq PRN Reason Stop Dose Admin Acetaminophen 650 mg 04/21/19 15:12 Tylenol PO Q4H PRN Pain MILD(1-3)/Fever >100.5/VIVAR Albuterol 2.5 mg 04/21/19 15:12 Proventil IH Q4HRT PRN Shortness Of Breath Aspirin 81 mg 04/23/19 10:00 04/28/19 09:18 Halfprin Ec PO 81 mg QDAY RUTHIE Administration Fluticasone Propionate 50 mcg 04/22/19 10:00 04/28/19 09:19 Flonase NS 50 mcg QDAY RUTHIE Administration Folic Acid 1 mg 04/24/19 13:00 04/28/19 09:18 Folvite PO 1 mg QDAY RUTHIE Administration Hydromorphone HCl 0.5 mg 04/25/19 18:00 04/29/19 07:38 Dilaudid IV 0.5 mg Q4H PRN Administration Pain , Severe (7-10) Argatroban 250 mg/ Sodium 250 mls @ 14.724 mls/hr 04/26/19 10:00 04/28/19 10:30 Chloride IV 0.5 mcg/kg/min TITR RUTHIE 3.681 mls/hr Titration Protocol 2 MCG/KG/MIN Loratadine 10 mg 04/22/19 10:00 04/28/19 09:18 Claritin PO 10 mg DAILY RUTHIE Administration Naloxone HCl 0.1 mg 04/22/19 14:18 Narcan 0.4 Mg/1 Ml IV Q2MIN PRN Res Rate </= 8 or 02 SAT < 92% Ondansetron HCl 4 mg 04/21/19 15:12 04/26/19 20:37 Zofran IV 4 mg Q8H PRN Administration Nausea And Vomiting Oxycodone/Acetaminophen 2 tab 04/25/19 09:52 04/28/19 09:18 Percocet 5/325 PO 2 tab Q4H PRN Administration Pain, Moderate (4-6) Pantoprazole Sodium 40 mg 04/25/19 12:00 04/28/19 22:27 Protonix PO 40 mg BID RUTHIE Administration Polyethylene Glycol 17 gm 04/25/19 10:00 04/28/19 09:18 Miralax 3350 PO 17 gm QDAY RUTHIE Administration Sodium Chloride 10 ml 04/21/19 22:00 04/29/19 02:05 Sodium Chloride Flush Syringe 10 Ml IV 10 ml BID RUTHIE Administration Sodium Chloride 10 ml 04/21/19 15:12 Sodium Chloride Flush Syringe 10 Ml IV PRN PRN LINE FLUSH Warfarin Sodium 10 mg 04/26/19 17:00 04/28/19 17:14 Coumadin PO 10 mg DAILY@1700 RUTHIE Administration Warfarin Sodium 2.5 mg 04/28/19 17:00 04/28/19 17:14 Coumadin PO 2.5 mg DAILY@1700 RUTHIE Administration Nutrition/Malnutrition Assess - Dietary Evaluation Nutrition/Malnutrition Findings: Nutrition Notes Start: 04/26/19 14:16 Freq: Status: Active Protocol: Document 04/28/19 12:29 LUCY (Rec: 04/28/19 13:26 LUCY [id number]) Co-Sign 04/28/19 12:29 NHALL Nutrition Notes Need for Assessment generated from: LOS Initial or Follow up Brief Note Height 5 ft 8 in Weight 122.2 kg [place] Body Weight (kg) 63.63 BMI 40.9 Subjective/Other Information RD consult for LOS. Chart states 85% average intake of meals which meets at least 75% of energy and protein needs. Is patient on ventilator? No Is Patient Ambulatory and/or Out of Bed Yes [facility] [ [id number] [id number]] Nutrition Intervention Revisit per MD consult or patient Sign Off request:
[2019-04-29] MEDS: PERCOCET 5/325 PO PRN ×3 (09:42→22:11)
[2019-04-29] MEDS: CLARITIN PO SCH (09:42)
[2019-04-29] MEDS: FOLVITE PO SCH (09:42)
[2019-04-29] MEDS: PROTONIX PO SCH ×2 (09:42→22:11)
[2019-04-29] MEDS: MIRALAX 3350 PO SCH (09:43)
[2019-04-29] MEDS: FLONASE NS SCH (09:46)
--- NOTE | 2019-04-29 11:00 | Progress Note ---
Assessment and Plan (1) Popliteal artery embolism, right Current Visit: Yes Status: Acute Plan to address problem: Patient is on argatroban with oral coumadin bridge. INR needs to be between 4-6 prior to discontinuation of argatroban (2) Anemia Current Visit: Yes Status: Acute Qualifiers: Anemia type: iron deficiency Plan to address problem: Hgb 8.7. Hct 27. Continue management as per primary care. (3) Nicotine dependence unspecified, with withdrawal Current Visit: Yes Status: Acute Qualifiers: Nicotine product type: cigarettes Qualified Code(s): F17.213 - Nicotine dependence, cigarettes, with withdrawal Plan to address problem: Counseled to stop smoking. (4) Obesity (BMI 30-39.9) Current Visit: Yes Status: Acute Plan to address problem: Weight loss and lifestyle modifications. She has had a gastric sleeve in the past Subjective Date of service: 04/29/19 Principal diagnosis: arterial thrombus - anemia Interval history: Patient is seen today for: acute limb ischemia; tobacco use disorder; morbid obesity Seen and examined at bedside; 24hour events reviewed; nursing and respiratory care staff consulted; no adverse overnight events reported to me; Vitals, labs, medications, chart reviewed. Feels better, remains on agatroban and Coumadin bridge- INR needs to be between 4-6 Denies any chest pain, no shortness of breath, no fevers or chills. Objective - Exam Narrative Exam: Gen: Not in acute distress, morbidly obese, lying in bed,morbidly obese HEENT: Normocephalic, atraumatic Neck: supple, no JVD Heart: S1 and S2 reg, no murmurs, rubs or gallop Lungs: Clear to auscultation, no rhonchi, no wheeze Abd: soft, non tender, non distended, normal BS, Ext: Mild tender right leg, Neuro: Awake, alert, oriented X 3, no focal neurological signs Vital Signs - 12hr 04/29/19 05:25 Temperature 98.8 F Pulse Rate 91 H Respiratory 20 Rate Blood Pressure 118/73 O2 Sat by Pulse 98 Oximetry Constitutional: no acute distress, alert Eyes: non-icteric ENT: oropharynx moist Neck: supple Effort: normal Ascultation: Bilateral: diminished breath sounds Cardiovascular: regular rate and rhythm Gastrointestinal: normoactive bowel sounds, soft, non-tender Integumentary: normal Extremities: no cyanosis, other (R lower leg appears bigger than left leg) Psychiatric: mood appropriate CBC and BMP: 04/29/19 05:15 04/27/19 04:20 ABG, PT/INR, D-dimer: PT/INR, D-dimer PT 30.6 Sec. (12.2-14.9) H 04/29/19 05:15 INR 3.00 (0.87-1.13) H 04/29/19 05:15 Abnormal lab findings: Abnormal Labs 04/21/19 04/21/19 04/21/19 12:31 12:31 15:35 WBC RBC 2.69 L Hgb 6.8 L 6.3 L Hct 21.2 L 18.7 L* MCH 25 L RDW 16.8 H Plt Count 617 H 500 H Lymph % (Auto) Seg Neutrophils % Seg Neutrophils # PT INR APTT Activated Clotting Time Antithrombin III Ag Heparin Anti-Xa Level BUN 5 L Creatinine Glucose Iron AST Albumin 3.4 L Folate Crossmatch 04/21/19 04/21/19 04/22/19 15:35 15:45 08:16 WBC RBC Hgb Hct MCH RDW Plt Count Lymph % (Auto) Seg Neutrophils % Seg Neutrophils # PT INR 1.15 H APTT 73.3 H* Activated Clotting Time Antithrombin III Ag Heparin Anti-Xa Level BUN 6 L Creatinine 0.6 L Glucose Iron AST 41 H Albumin 2.9 L Folate Crossmatch See Detail 04/22/19 04/22/19 04/22/19 09:11 13:38 22:20 WBC RBC 3.06 L Hgb 8.0 L Hct 24.6 L MCH 26 L RDW 16.9 H Plt Count 532 H Lymph % (Auto) Seg Neutrophils % Seg Neutrophils # PT INR APTT Activated Clotting Time 180 H Antithrombin III Ag Heparin Anti-Xa Level < 0.10 L BUN Creatinine Glucose Iron AST Albumin Folate Crossmatch 04/23/19 04/23/19 04/23/19 06:13 07:58 07:58 WBC RBC Hgb 7.8 L Hct 24.4 L MCH RDW Plt Count 561 H Lymph % (Auto) Seg Neutrophils % Seg Neutrophils # PT INR APTT Activated Clotting Time Antithrombin III Ag Heparin Anti-Xa Level BUN Creatinine Glucose Iron 26 L AST Albumin Folate 4.02 L Crossmatch 04/23/19 04/23/19 04/23/19 07:58 11:15 11:36 WBC RBC Hgb 7.8 L Hct 24.4 L MCH RDW Plt Count 548 H Lymph % (Auto) Seg Neutrophils % Seg Neutrophils # PT INR APTT Activated Clotting Time 191 H 202 H Antithrombin III Ag Heparin Anti-Xa Level BUN Creatinine Glucose Iron AST Albumin Folate Crossmatch 04/23/19 04/23/19 04/23/19 12:06 15:47 19:21 WBC RBC Hgb 7.0 L Hct 21.3 L MCH RDW Plt Count Lymph % (Auto) Seg Neutrophils % Seg Neutrophils # PT INR APTT 85.3 H* Activated Clotting Time 208 H Antithrombin III Ag Heparin Anti-Xa Level BUN Creatinine Glucose Iron AST Albumin Folate Crossmatch 04/23/19 04/24/19 04/24/19 Unknown 04:24 04:24 WBC 15.6 H RBC 2.50 L Hgb 6.6 L Hct 20.1 L MCH 26 L RDW 17.7 H Plt Count 502 H Lymph % (Auto) 11.5 L Seg Neutrophils % 83.2 H Seg Neutrophils # 12.9 H PT INR APTT Activated Clotting Time Antithrombin III Ag 76 L Heparin Anti-Xa Level BUN Creatinine Glucose 105 H Iron AST Albumin Folate Crossmatch 04/24/19 04/24/19 04/24/19 10:00 16:42 16:42 WBC RBC Hgb 6.6 L Hct 20.3 L MCH RDW Plt Count Lymph % (Auto) Seg Neutrophils % Seg Neutrophils # PT 24.3 H INR 2.23 H APTT 69.4 H* Activated Clotting Time Antithrombin III Ag Heparin Anti-Xa Level BUN Creatinine Glucose Iron AST Albumin Folate Crossmatch 04/24/19 04/25/19 04/25/19 21:00 05:12 05:12 WBC 11.6 H RBC 3.02 L Hgb 8.2 L Hct 25.2 L MCH 27 L RDW 18.2 H Plt Count 447 H Lymph % (Auto) Seg Neutrophils % 74.4 H Seg Neutrophils # 8.6 H PT 22.6 H INR 2.04 H APTT 65.5 H* Activated Clotting Time Antithrombin III Ag Heparin Anti-Xa Level BUN Creatinine Glucose Iron AST Albumin Folate Crossmatch 04/25/19 04/25/19 04/26/19 05:12 21:19 04:46 WBC RBC Hgb Hct MCH RDW Plt Count Lymph % (Auto) Seg Neutrophils % Seg Neutrophils # PT INR 1.20 H APTT 55.5 H 47.5 H Activated Clotting Time Antithrombin III Ag Heparin Anti-Xa Level BUN Creatinine Glucose Iron AST Albumin Folate Crossmatch 04/26/19 04/26/19 04/27/19 13:27 22:26 04:20 WBC RBC 3.28 L Hgb 9.9 L 8.7 L Hct 27.0 L MCH 27 L 27 L RDW 18.3 H 17.8 H Plt Count 568 H 514 H Lymph % (Auto) Seg Neutrophils % Seg Neutrophils # PT INR APTT 126.1 H* Activated Clotting Time Antithrombin III Ag Heparin Anti-Xa Level BUN Creatinine Glucose Iron AST Albumin Folate Crossmatch 04/27/19 04/27/19 04/27/19 04:20 04:20 04:20 WBC RBC Hgb Hct MCH RDW Plt Count Lymph % (Auto) Seg Neutrophils % Seg Neutrophils # PT 28.4 H INR 2.72 H APTT 62.1 H* Activated Clotting Time Antithrombin III Ag Heparin Anti-Xa Level BUN 5 L Creatinine 0.6 L Glucose Iron AST Albumin Folate Crossmatch 04/27/19 04/28/19 04/28/19 18:23 05:30 10:41 WBC RBC Hgb Hct MCH RDW Plt Count Lymph % (Auto) Seg Neutrophils % Seg Neutrophils # PT 29.5 H INR 2.86 H APTT 82.2 H* 90.1 H* 77.3 H* Activated Clotting Time Antithrombin III Ag Heparin Anti-Xa Level BUN Creatinine Glucose Iron AST Albumin Folate Crossmatch 04/28/19 04/29/19 04/29/19 22:42 05:15 05:15 WBC RBC Hgb 8.8 L Hct 27.1 L MCH RDW Plt Count 511 H Lymph % (Auto) Seg Neutrophils % Seg Neutrophils # PT 30.6 H INR 3.00 H APTT 85.9 H* Activated Clotting Time Antithrombin III Ag Heparin Anti-Xa Level BUN Creatinine Glucose Iron AST Albumin Folate Crossmatch
[2019-04-29] MEDS: HALFPRIN EC PO SCH (11:06)
--- NOTE | 2019-04-29 13:12 | Progress Note ---
Subjective Date of service: 04/29/19 Principal diagnosis: arterial thrombus - anemia Interval history: patient doing well right foot numbness resolving ambulating without difficulty palpable pedal pulses continue OAC Objective - Constitutional Vitals: Vital Signs - 12hr 04/29/19 04/29/19 05:25 12:35 Temperature 98.8 F 97.5 F L Pulse Rate 91 H 94 H Respiratory 20 16 Rate Blood Pressure 118/73 123/70 O2 Sat by Pulse 98 100 Oximetry - Labs CBC & Chem 7: 04/29/19 05:15 04/27/19 04:20 Labs: Abnormal lab results 04/28/19 04/29/19 04/29/19 Range/Units 22:42 05:15 05:15 Hgb 8.8 L (10.1-14.3) gm/dl Hct 27.1 L (30.3-42.9) % Plt Count 511 H (140-440) K/mm3 PT 30.6 H (12.2-14.9) Sec. INR 3.00 H (0.87-1.13) APTT 85.9 H* (24.2-36.6) Sec. Medications & Allergies - Medications Allergies/Adverse Reactions: Allergies No Known Allergies Allergy (Unverified 12/16/14 00:11) Home Medications: Home Medications Medication Instructions Recorded Confirmed Last Taken Type Fluticasone Propionate [Flonase] 2 sprays NS QDAY #1 bottle 12/16/14 Unknown Rx Loratadine [Claritin] 10 mg PO DAILY #30 tablet 12/16/14 04/25/19 Unknown Rx predniSONE [Deltasone] 40 mg PO QDAY #10 tab 12/16/14 04/25/19 Unknown Rx Active Medications: Generic Name Dose Route Start Last Admin Trade Name Freq PRN Reason Stop Dose Admin Acetaminophen 650 mg 04/21/19 15:12 Tylenol PO Q4H PRN Pain MILD(1-3)/Fever >100.5/VIVAR Albuterol 2.5 mg 04/21/19 15:12 Proventil IH Q4HRT PRN Shortness Of Breath Aspirin 81 mg 04/23/19 10:00 04/29/19 11:06 Halfprin Ec PO 81 mg QDAY RUTHIE Administration Fluticasone Propionate 50 mcg 04/22/19 10:00 04/29/19 09:46 Flonase NS 50 mcg QDAY RUTHIE Administration Folic Acid 1 mg 04/24/19 13:00 04/29/19 09:42 Folvite PO 1 mg QDAY RUTHIE Administration Hydromorphone HCl 0.5 mg 04/25/19 18:00 04/29/19 07:38 Dilaudid IV 0.5 mg Q4H PRN Administration Pain , Severe (7-10) Argatroban 250 mg/ Sodium 250 mls @ 14.724 mls/hr 04/26/19 10:00 04/28/19 10:30 Chloride IV 0.5 mcg/kg/min TITR RUTHIE 3.681 mls/hr Titration Protocol 2 MCG/KG/MIN Loratadine 10 mg 04/22/19 10:00 04/29/19 09:42 Claritin PO 10 mg DAILY RUTHIE Administration Naloxone HCl 0.1 mg 04/22/19 14:18 Narcan 0.4 Mg/1 Ml IV Q2MIN PRN Res Rate </= 8 or 02 SAT < 92% Ondansetron HCl 4 mg 04/21/19 15:12 04/26/19 20:37 Zofran IV 4 mg Q8H PRN Administration Nausea And Vomiting Oxycodone/Acetaminophen 2 tab 04/25/19 09:52 04/29/19 09:42 Percocet 5/325 PO 2 tab Q4H PRN Administration Pain, Moderate (4-6) Pantoprazole Sodium 40 mg 04/25/19 12:00 04/29/19 09:42 Protonix PO 40 mg BID RUTHIE Administration Polyethylene Glycol 17 gm 04/25/19 10:00 04/29/19 09:43 Miralax 3350 PO 17 gm QDAY RUTHIE Administration Sodium Chloride 10 ml 04/21/19 22:00 04/29/19 09:43 Sodium Chloride Flush Syringe 10 Ml IV 10 ml BID RUTHIE Administration Sodium Chloride 10 ml 04/21/19 15:12 Sodium Chloride Flush Syringe 10 Ml IV PRN PRN LINE FLUSH Warfarin Sodium 10 mg 04/26/19 17:00 04/28/19 17:14 Coumadin PO 10 mg DAILY@1700 RUTHIE Administration Warfarin Sodium 2.5 mg 04/28/19 17:00 04/28/19 17:14 Coumadin PO 2.5 mg DAILY@1700 RUTHIE Administration
[2019-04-29] MEDS: COUMADIN PO SCH ×2 (17:34→18:12)
[2019-04-30] MEDS: DILAUDID IV PRN ×5 (02:52→21:28)
--- NOTE | 2019-04-30 07:33 | Hem/Onc Progress Note ---
Assessment and Plan 1. Right arterial thrombus. History of travel present. The patient says prior to the [place] trip she had right leg pain. 2. Anemia. The patient says she has been anemic for a long time, low folate, low iron. 3. Status post vascular team procedure. 4. The patient's right foot was cold. 5. Transfusion support as needed. 6. I discussed with patient regarding quitting smoking. 7. Obesity. h/o gastric sx - 2016 IV iron folate on argatroban eliquis an option as oral agent - Warfarin started as per vascular team will do hypercoag Ix as OP adv s/l b12 as OP will look into IV iron as OP vascular note 04/26 mentions Patient had intolerance of heparin during second embolectomy (greater than 20,000 units provided) and still thrombosed intraoperatively requiring escalation to Agatroban. Continue Agatroban. On warfarin. Recommend aspirin for life as well. Patient has mild foot drop and some numbness of her toes with the foot drop unchanged from presentation upon further questioning, and the numbness of her toes unchanged from her first reocclusion upon further questioning. 04/30 s/p iv iron 04/27 will await for targetting of INR - pharmacy dosing warfarin when pt is on argatroban and coumadin the target INR is high ct [facility]SA - as per vascular the plan will be to use warfarin for some time and later evaluate if eliquis can be used as OP gave my office information d/w dr cho - Patient Problems (1) Anemia Current Visit: Yes Status: Acute Qualifiers: Anemia type: iron deficiency (2) Popliteal artery embolism, right Current Visit: Yes Status: Acute Subjective Date of service: 04/30/19 Principal diagnosis: arterial ischemia Interval history: leg warm Objective - Exam Narrative Exam: Pain - none General appearance - breathing better Performance status limited self care Eyes - no icterus, pallor + ENT - no bleeding LNs cervical not palpable Neck - no LN Respiratory Normal Breath sounds - CTA CVS S1 S2 + Extremities no calf tenderness General GI Soft Rectal deferred female - deferred Skin warm Musculoskeletal moving extremitites Neurologically awake - oriented - Constitutional Vitals: Last Vital Signs Temp 98.5 F 04/30/19 05:57 Pulse 94 H 04/30/19 05:57 Resp 18 04/30/19 05:57 BP 95/59 04/30/19 05:57 Pulse Ox 100 04/30/19 05:57 - Labs Lab Results: Laboratory Results - last 24 hr 04/29/19 14:34 APTT 74.2 H* Medications & Allergies - Medications Allergies/Adverse Reactions: Allergies No Known Allergies Allergy (Unverified 12/16/14 00:11) Home Medications: Home Medications Medication Instructions Recorded Confirmed Last Taken Type Fluticasone Propionate [Flonase] 2 sprays NS QDAY #1 bottle 12/16/14 04/29/19 Unknown Rx Loratadine [Claritin] 10 mg PO DAILY #30 tablet 12/16/14 04/25/19 Unknown Rx predniSONE [Deltasone] 40 mg PO QDAY #10 tab 12/16/14 04/25/19 Unknown Rx Active Medications: Generic Name Dose Route Start Last Admin Trade Name Freq PRN Reason Stop Dose Admin Acetaminophen 650 mg 04/21/19 15:12 Tylenol PO Q4H PRN Pain MILD(1-3)/Fever >100.5/VIVAR Albuterol 2.5 mg 04/21/19 15:12 Proventil IH Q4HRT PRN Shortness Of Breath Aspirin 81 mg 04/23/19 10:00 04/29/19 11:06 Halfprin Ec PO 81 mg QDAY RUTHIE Administration Fluticasone Propionate 50 mcg 04/22/19 10:00 04/29/19 09:46 Flonase NS 50 mcg QDAY RUTHIE Administration Folic Acid 1 mg 04/24/19 13:00 04/29/19 09:42 Folvite PO 1 mg QDAY RUTHIE Administration Hydromorphone HCl 0.5 mg 04/25/19 18:00 04/30/19 02:52 Dilaudid IV 0.5 mg Q4H PRN Administration Pain , Severe (7-10) Argatroban 250 mg/ Sodium 250 mls @ 14.724 mls/hr 04/26/19 10:00 04/29/19 15:20 Chloride IV 0.5 mcg/kg/min TITR RUTHIE 3.681 mls/hr Titration Protocol 2 MCG/KG/MIN Loratadine 10 mg 04/22/19 10:00 04/29/19 09:42 Claritin PO 10 mg DAILY RUTHIE Administration Naloxone HCl 0.1 mg 04/22/19 14:18 Narcan 0.4 Mg/1 Ml IV Q2MIN PRN Res Rate </= 8 or 02 SAT < 92% Ondansetron HCl 4 mg 04/21/19 15:12 04/26/19 20:37 Zofran IV 4 mg Q8H PRN Administration Nausea And Vomiting Oxycodone/Acetaminophen 2 tab 04/25/19 09:52 04/29/19 18:11 Percocet 5/325 PO 2 tab Q4H PRN Administration Pain, Moderate (4-6) Pantoprazole Sodium 40 mg 04/25/19 12:00 04/29/19 22:11 Protonix PO 40 mg BID RUTHIE Administration Polyethylene Glycol 17 gm 04/25/19 10:00 04/29/19 09:43 Miralax 3350 PO 17 gm QDAY RUTHIE Administration Sodium Chloride 10 ml 04/21/19 22:00 04/29/19 22:12 Sodium Chloride Flush Syringe 10 Ml IV 10 ml BID RUTHIE Administration Sodium Chloride 10 ml 04/21/19 15:12 Sodium Chloride Flush Syringe 10 Ml IV PRN PRN LINE FLUSH Warfarin Sodium 10 mg 04/26/19 17:00 04/29/19 17:34 Coumadin PO 10 mg DAILY@1700 RUTHIE Administration Warfarin Sodium 2.5 mg 04/28/19 17:00 04/29/19 18:12 Coumadin PO 2.5 mg DAILY@1700 RUTHIE Administration
[2019-04-30 07:50] LABS: INR 3.86 (0.87-1.13)
[2019-04-30 08:14] LABS: Partial Thromboplastin Time 80.3 Sec. (24.2-36.6)
[2019-04-30] MEDS: FOLVITE PO SCH (09:04)
[2019-04-30] MEDS: MIRALAX 3350 PO SCH (09:04)
[2019-04-30] MEDS: CLARITIN PO SCH (09:04)
[2019-04-30] MEDS: PROTONIX PO SCH ×2 (09:04→21:29)
[2019-04-30] MEDS: HALFPRIN EC PO SCH (09:04)
--- NOTE | 2019-04-30 11:30 | Progress Note ---
Assessment and Plan (1) Popliteal artery embolism, right Current Visit: Yes Status: Acute Plan to address problem: Patient is on argatroban with oral coumadin bridge. INR needs to be between 4-6 prior to discontinuation of argatroban (2) Anemia Current Visit: Yes Status: Acute Qualifiers: Anemia type: iron deficiency Plan to address problem: Hgb 8.7. Hct 27. Continue management as per primary care. (3) Nicotine dependence unspecified, with withdrawal Current Visit: Yes Status: Acute Qualifiers: Nicotine product type: cigarettes Qualified Code(s): F17.213 - Nicotine dependence, cigarettes, with withdrawal Plan to address problem: Counseled to stop smoking. (4) Obesity (BMI 30-39.9) Current Visit: Yes Status: Acute Plan to address problem: Weight loss and lifestyle modifications. She has had a gastric sleeve Continue current therapies Discussed care with hospitalist service Discharge planning Subjective Date of service: 04/30/19 Principal diagnosis: arterial thrombus - anemia Interval history: Patient is seen today for: acute limb ischemia; tobacco use disorder; morbid obesity Seen and examined at bedside; 24hour events reviewed; nursing and respiratory care staff consulted; no adverse overnight events reported to me; Vitals, labs, medications, chart reviewed. Feels better, remains on agatroban and Coumadin bridge- INR needs to be between 4-6 Denies any chest pain, no shortness of breath, no fevers or chills. Objective - Exam Narrative Exam: Gen: Not in acute distress, morbidly obese, lying in bed,morbidly obese HEENT: Normocephalic, atraumatic Neck: supple, no JVD Heart: S1 and S2 reg, no murmurs, rubs or gallop Lungs: Clear to auscultation, no rhonchi, no wheeze Abd: soft, non tender, non distended, normal BS, Ext: Mild tender right leg, Neuro: Awake, alert, oriented X 3, no focal neurological signs Vital Signs - 12hr 04/30/19 05:57 Temperature 98.5 F Pulse Rate 94 H Respiratory 18 Rate Blood Pressure 95/59 O2 Sat by Pulse 100 Oximetry Constitutional: no acute distress, alert Eyes: non-icteric ENT: oropharynx moist Neck: supple Effort: normal Ascultation: Bilateral: diminished breath sounds Cardiovascular: regular rate and rhythm Gastrointestinal: normoactive bowel sounds, soft, non-tender Integumentary: normal Extremities: no cyanosis, other (R lower leg appears bigger than left leg) Psychiatric: mood appropriate CBC and BMP: 04/29/19 05:15 04/27/19 04:20 ABG, PT/INR, D-dimer: PT/INR, D-dimer PT 37.4 Sec. (12.2-14.9) H 04/30/19 06:57 INR 3.86 (0.87-1.13) H 04/30/19 06:57 Abnormal lab findings: Abnormal Labs 04/21/19 04/21/19 04/21/19 12:31 12:31 15:35 WBC RBC 2.69 L Hgb 6.8 L 6.3 L Hct 21.2 L 18.7 L* MCH 25 L RDW 16.8 H Plt Count 617 H 500 H Lymph % (Auto) Seg Neutrophils % Seg Neutrophils # PT INR APTT Activated Clotting Time Antithrombin III Ag Heparin Anti-Xa Level BUN 5 L Creatinine Glucose Iron AST Albumin 3.4 L Folate Crossmatch 04/21/19 04/21/19 04/22/19 15:35 15:45 08:16 WBC RBC Hgb Hct MCH RDW Plt Count Lymph % (Auto) Seg Neutrophils % Seg Neutrophils # PT INR 1.15 H APTT 73.3 H* Activated Clotting Time Antithrombin III Ag Heparin Anti-Xa Level BUN 6 L Creatinine 0.6 L Glucose Iron AST 41 H Albumin 2.9 L Folate Crossmatch See Detail 04/22/19 04/22/19 04/22/19 09:11 13:38 22:20 WBC RBC 3.06 L Hgb 8.0 L Hct 24.6 L MCH 26 L RDW 16.9 H Plt Count 532 H Lymph % (Auto) Seg Neutrophils % Seg Neutrophils # PT INR APTT Activated Clotting Time 180 H Antithrombin III Ag Heparin Anti-Xa Level < 0.10 L BUN Creatinine Glucose Iron AST Albumin Folate Crossmatch 04/23/19 04/23/19 04/23/19 06:13 07:58 07:58 WBC RBC Hgb 7.8 L Hct 24.4 L MCH RDW Plt Count 561 H Lymph % (Auto) Seg Neutrophils % Seg Neutrophils # PT INR APTT Activated Clotting Time Antithrombin III Ag Heparin Anti-Xa Level BUN Creatinine Glucose Iron 26 L AST Albumin Folate 4.02 L Crossmatch 04/23/19 04/23/19 04/23/19 07:58 11:15 11:36 WBC RBC Hgb 7.8 L Hct 24.4 L MCH RDW Plt Count 548 H Lymph % (Auto) Seg Neutrophils % Seg Neutrophils # PT INR APTT Activated Clotting Time 191 H 202 H Antithrombin III Ag Heparin Anti-Xa Level BUN Creatinine Glucose Iron AST Albumin Folate Crossmatch 04/23/19 04/23/19 04/23/19 12:06 15:47 19:21 WBC RBC Hgb 7.0 L Hct 21.3 L MCH RDW Plt Count Lymph % (Auto) Seg Neutrophils % Seg Neutrophils # PT INR APTT 85.3 H* Activated Clotting Time 208 H Antithrombin III Ag Heparin Anti-Xa Level BUN Creatinine Glucose Iron AST Albumin Folate Crossmatch 04/23/19 04/24/19 04/24/19 Unknown 04:24 04:24 WBC 15.6 H RBC 2.50 L Hgb 6.6 L Hct 20.1 L MCH 26 L RDW 17.7 H Plt Count 502 H Lymph % (Auto) 11.5 L Seg Neutrophils % 83.2 H Seg Neutrophils # 12.9 H PT INR APTT Activated Clotting Time Antithrombin III Ag 76 L Heparin Anti-Xa Level BUN Creatinine Glucose 105 H Iron AST Albumin Folate Crossmatch 04/24/19 04/24/19 04/24/19 10:00 16:42 16:42 WBC RBC Hgb 6.6 L Hct 20.3 L MCH RDW Plt Count Lymph % (Auto) Seg Neutrophils % Seg Neutrophils # PT 24.3 H INR 2.23 H APTT 69.4 H* Activated Clotting Time Antithrombin III Ag Heparin Anti-Xa Level BUN Creatinine Glucose Iron AST Albumin Folate Crossmatch 04/24/19 04/25/19 04/25/19 21:00 05:12 05:12 WBC 11.6 H RBC 3.02 L Hgb 8.2 L Hct 25.2 L MCH 27 L RDW 18.2 H Plt Count 447 H Lymph % (Auto) Seg Neutrophils % 74.4 H Seg Neutrophils # 8.6 H PT 22.6 H INR 2.04 H APTT 65.5 H* Activated Clotting Time Antithrombin III Ag Heparin Anti-Xa Level BUN Creatinine Glucose Iron AST Albumin Folate Crossmatch 04/25/19 04/25/19 04/26/19 05:12 21:19 04:46 WBC RBC Hgb Hct MCH RDW Plt Count Lymph % (Auto) Seg Neutrophils % Seg Neutrophils # PT INR 1.20 H APTT 55.5 H 47.5 H Activated Clotting Time Antithrombin III Ag Heparin Anti-Xa Level BUN Creatinine Glucose Iron AST Albumin Folate Crossmatch 04/26/19 04/26/19 04/27/19 13:27 22:26 04:20 WBC RBC 3.28 L Hgb 9.9 L 8.7 L Hct 27.0 L MCH 27 L 27 L RDW 18.3 H 17.8 H Plt Count 568 H 514 H Lymph % (Auto) Seg Neutrophils % Seg Neutrophils # PT INR APTT 126.1 H* Activated Clotting Time Antithrombin III Ag Heparin Anti-Xa Level BUN Creatinine Glucose Iron AST Albumin Folate Crossmatch 04/27/19 04/27/19 04/27/19 04:20 04:20 04:20 WBC RBC Hgb Hct MCH RDW Plt Count Lymph % (Auto) Seg Neutrophils % Seg Neutrophils # PT 28.4 H INR 2.72 H APTT 62.1 H* Activated Clotting Time Antithrombin III Ag Heparin Anti-Xa Level BUN 5 L Creatinine 0.6 L Glucose Iron AST Albumin Folate Crossmatch 04/27/19 04/28/19 04/28/19 18:23 05:30 10:41 WBC RBC Hgb Hct MCH RDW Plt Count Lymph % (Auto) Seg Neutrophils % Seg Neutrophils # PT 29.5 H INR 2.86 H APTT 82.2 H* 90.1 H* 77.3 H* Activated Clotting Time Antithrombin III Ag Heparin Anti-Xa Level BUN Creatinine Glucose Iron AST Albumin Folate Crossmatch 04/28/19 04/29/19 04/29/19 22:42 05:15 05:15 WBC RBC Hgb 8.8 L Hct 27.1 L MCH RDW Plt Count 511 H Lymph % (Auto) Seg Neutrophils % Seg Neutrophils # PT 30.6 H INR 3.00 H APTT 85.9 H* Activated Clotting Time Antithrombin III Ag Heparin Anti-Xa Level BUN Creatinine Glucose Iron AST Albumin Folate Crossmatch 04/29/19 04/30/19 14:34 06:57 WBC RBC Hgb Hct MCH RDW Plt Count Lymph % (Auto) Seg Neutrophils % Seg Neutrophils # PT 37.4 H INR 3.86 H APTT 74.2 H* 80.3 H* Activated Clotting Time Antithrombin III Ag Heparin Anti-Xa Level BUN Creatinine Glucose Iron AST Albumin Folate Crossmatch
--- NOTE | 2019-04-30 12:10 | Progress Note ---
Subjective Date of service: 04/30/19 Principal diagnosis: arterial thrombus - anemia Interval history: patient continues to do well right leg remains warm and well perfused INR 3.86, continue OAC ok to d/c from my standpoint once medically stable Objective - Constitutional Vitals: Vital Signs - 12hr 04/30/19 04/30/19 05:57 11:14 Temperature 98.5 F 97.6 F Pulse Rate 94 H 95 H Respiratory 18 20 Rate Blood Pressure 95/59 120/76 O2 Sat by Pulse 100 100 Oximetry - Labs CBC & Chem 7: 04/29/19 05:15 04/27/19 04:20 Labs: Abnormal lab results 04/29/19 04/30/19 Range/Units 14:34 06:57 PT 37.4 H (12.2-14.9) Sec. INR 3.86 H (0.87-1.13) APTT 74.2 H* 80.3 H* (24.2-36.6) Sec. Medications & Allergies - Medications Allergies/Adverse Reactions: Allergies No Known Allergies Allergy (Unverified 12/16/14 00:11) Home Medications: Home Medications Medication Instructions Recorded Confirmed Last Taken Type Fluticasone Propionate [Flonase] 2 sprays NS QDAY #1 bottle 12/16/14 04/29/19 Unknown Rx Loratadine [Claritin] 10 mg PO DAILY #30 tablet 12/16/14 04/25/19 Unknown Rx predniSONE [Deltasone] 40 mg PO QDAY #10 tab 12/16/14 04/25/19 Unknown Rx Active Medications: Generic Name Dose Route Start Last Admin Trade Name Lisa PRN Reason Stop Dose Admin Acetaminophen 650 mg 04/21/19 15:12 Tylenol PO Q4H PRN Pain MILD(1-3)/Fever >100.5/VIVAR Albuterol 2.5 mg 04/21/19 15:12 Proventil IH Q4HRT PRN Shortness Of Breath Aspirin 81 mg 04/23/19 10:00 04/30/19 09:04 Halfprin Ec PO 81 mg QDAY RUTHIE Administration Fluticasone Propionate 50 mcg 04/22/19 10:00 04/29/19 09:46 Flonase NS 50 mcg QDAY RUTHIE Administration Folic Acid 1 mg 04/24/19 13:00 04/30/19 09:04 Folvite PO 1 mg QDAY RUTHIE Administration Hydromorphone HCl 0.5 mg 04/25/19 18:00 04/30/19 09:01 Dilaudid IV 0.5 mg Q4H PRN Administration Pain , Severe (7-10) Argatroban 250 mg/ Sodium 250 mls @ 14.724 mls/hr 04/26/19 10:00 04/29/19 15:20 Chloride IV 0.5 mcg/kg/min TITR RUTHIE 3.681 mls/hr Titration Protocol 2 MCG/KG/MIN Loratadine 10 mg 04/22/19 10:00 04/30/19 09:04 Claritin PO 10 mg DAILY RUTHIE Administration Naloxone HCl 0.1 mg 04/22/19 14:18 Narcan 0.4 Mg/1 Ml IV Q2MIN PRN Res Rate </= 8 or 02 SAT < 92% Ondansetron HCl 4 mg 04/21/19 15:12 04/26/19 20:37 Zofran IV 4 mg Q8H PRN Administration Nausea And Vomiting Oxycodone/Acetaminophen 2 tab 04/25/19 09:52 04/29/19 18:11 Percocet 5/325 PO 2 tab Q4H PRN Administration Pain, Moderate (4-6) Pantoprazole Sodium 40 mg 04/25/19 12:00 04/30/19 09:04 Protonix PO 40 mg BID RUTHIE Administration Polyethylene Glycol 17 gm 04/25/19 10:00 04/30/19 09:04 Miralax 3350 PO 17 gm QDAY RUTHIE Administration Sodium Chloride 10 ml 04/21/19 22:00 04/29/19 22:12 Sodium Chloride Flush Syringe 10 Ml IV 10 ml BID RUTHIE Administration Sodium Chloride 10 ml 04/21/19 15:12 Sodium Chloride Flush Syringe 10 Ml IV PRN PRN LINE FLUSH Warfarin Sodium 10 mg 04/26/19 17:00 04/29/19 17:34 Coumadin PO 10 mg DAILY@1700 RUTHIE Administration Warfarin Sodium 2.5 mg 04/28/19 17:00 04/29/19 18:12 Coumadin PO 2.5 mg DAILY@1700 RUTHIE Administration
[2019-04-30] MEDS: SODIUM CHLORIDE FLUSH SYRINGE 10 ML IV SCH ×2 (12:12→21:29)
[2019-04-30] MEDS: FLONASE NS SCH (12:17)
[2019-04-30] MEDS: PERCOCET 5/325 PO PRN (14:34)
[2019-04-30 16:38] LABS: INR 3.57 (0.87-1.13)
[2019-04-30] MEDS ORDERED: COUMADIN PO SCH (17:00)
[2019-04-30] MEDS: ARGATROBAN 250 MG in NACL 0.9% 250ML 247.5 ML IV SCH (19:54)
[2019-05-01] MEDS: PERCOCET 5/325 PO PRN ×3 (00:55→15:26)
[2019-05-01] MEDS: DILAUDID IV PRN ×2 (04:07→12:51)
[2019-05-01 08:47] LABS: Hematocrit 26.3 % (30.3-42.9); Hemoglobin 8.5 gm/dl (10.1-14.3)
[2019-05-01 09:38] LABS: INR 5.45 (0.87-1.13)
[2019-05-01] MEDS: MIRALAX 3350 PO SCH (09:53)
[2019-05-01] MEDS: PROTONIX PO SCH (09:53)
[2019-05-01] MEDS: HALFPRIN EC PO SCH (09:53)
[2019-05-01] MEDS: CLARITIN PO SCH (09:53)
[2019-05-01] MEDS: FOLVITE PO SCH (09:54)
[2019-05-01] MEDS: SODIUM CHLORIDE FLUSH SYRINGE 10 ML IV SCH (09:56)
[2019-05-01] MEDS: FLONASE NS SCH (09:57)
[2019-05-01 12:35] VITALS: BP 110/78
[2019-05-01 14:25] LABS: INR 3.49 (0.87-1.13)
--- NOTE | 2019-05-01 14:32 | Discharge Summary ---
Providers - Providers Date of Admission: 04/21/19 15:12 Date of discharge: 05/01/19 Attending physician: HEATHER BAUTISTA 04/21/19 16:01 Consult to Physician [CONS] Routine Comment: Dr. Bryan spoke with Dr. Wells/Dr. Black @ [id number] Consulting Provider: GORGE WELLS Physician Instructions: Reason For Exam: polpi emboli 04/22/19 08:51 Consult to Physician [CONS] Routine Comment: Consulting Provider: SARAH LIANG Physician Instructions: Reason For Exam: hypercoaguable state with VT 04/24/19 13:29 Consult to Physician [CONS] Urgent Comment: Consulting Provider: LEONARDO PEREZ Physician Instructions: Reason For Exam: critical care management 04/25/19 09:00 Consult to Wound/ET Nurse [CONS] Routine Reason For Exam: blister across whole lower back 04/25/19 09:49 Physical Therapy Evaluation and Treat [CONS] Routine Comment: Reason For Exam: assist with ambulation 04/25/19 17:10 Physical Therapy Evaluation and Treat [CONS] Routine Comment: Reason For Exam: placement Primary care physician: JONATHAN BARKSDALE Hospitalization Condition: Fair Disposition: DC-01 TO HOME OR SELFCARE Core Measure Documentation - Palliative Care Palliative Care/ Comfort Measures: Not Applicable - Core Measures Any of the following diagnoses?: none Exam - Constitutional Vitals: Temp Pulse Resp BP Pulse Ox 98.8 F 88 18 110/78 100 05/01/19 12:17 05/01/19 12:17 05/01/19 12:17 05/01/19 12:17 05/01/19 12:17 Plan Activity: advance as tolerated Diet: low fat, low cholesterol, low salt Plan of Treatment: 1.Follow up with PCP or [facility] in 1 week 2.Follow up with Dr. Gorge Wells in 3-5 days. 3.Follow up with Dr. Liang, hematology in 1 week 4.Check INR on Friday05/03/[address] Liang, Hematology Follow up with: JONATHAN BARKSDALE MD [Primary Care Provider] - 3-5 Days Forms: Warfarin Discharge Instruction Prescriptions: Folic Acid [Folvite] 1 mg PO QDAY #30 tablet Aspirin EC [Halfprin EC] 81 mg PO QDAY #30 tablet
[2019-05-01] MEDS ORDERED: COUMADIN PO SCH (17:00)
== END 2019-05-01 16:45 | disposition home or self-care (01) | DRG 253 ==
LOC: ED 11:20 → 3B-SURG 15:12 → CC1 04-23 16:33 → 3A 04-25 16:55
PROVIDERS: ADMIT Internal Medicine; ATTEND Internal Medicine
PROC: 04CK0ZZ Extirpation of Matter from Right Femoral Artery, Open Approach (ICD-10-PCS; principal; 2019-04-22)
PROC: 04CM0ZZ Extirpation of Matter from Right Popliteal Artery, Open Approach (ICD-10-PCS; 2019-04-22)
PROC: 30233N1 Transfusion of Nonautologous Red Blood Cells into Peripheral Vein, Percutaneous Approach (ICD-10-PCS; 2019-04-22)
PROC: 04CK0ZZ Extirpation of Matter from Right Femoral Artery, Open Approach (ICD-10-PCS; 2019-04-23)
PROC: 04CM0ZZ Extirpation of Matter from Right Popliteal Artery, Open Approach (ICD-10-PCS; 2019-04-23)
PROC: B41F1ZZ Fluoroscopy of Right Lower Extremity Arteries using Low Osmolar Contrast (ICD-10-PCS; 2019-04-23)
PROC: B44FZZ3 Ultrasonography of Right Lower Extremity Arteries, Intravascular (ICD-10-PCS; 2019-04-23)
PROC: 04CP0ZZ Extirpation of Matter from Right Anterior Tibial Artery, Open Approach (ICD-10-PCS; 2019-04-23)
DX: I74.3 Embolism and thrombosis of arteries of the lower extremities (principal); Z68.41 Body mass index [BMI] 40.0-44.9, adult; F17.213 Nicotine dependence, cigarettes, with withdrawal; I99.8 Other disorder of circulatory system; D50.9 Iron deficiency anemia, unspecified; E66.01 Morbid (severe) obesity due to excess calories; Z79.899 Other long term (current) drug therapy; Z71.6 Tobacco abuse counseling; Z82.49 Family history of ischemic heart disease and other diseases of the circulatory system; Z83.3 Family history of diabetes mellitus; Z98.84 Bariatric surgery status
CPT/HCPCS: 36415; 71046; 75635; 80048; 80053; 82607; 82728; 82747; 82962; 83550; 84703; 85014; 85018; 85025; 85027; 85049; 85301; 85347; 85520; 85610; 85730; 86850; 86900; 86901; 86920; 88304; 96374; 96375; 99406; G0378; A4649; C1725; C1753; C1757; C1769; C1894; J0330; J0360; J0690; J0883; J1100; J1170; J1644; J1650; J1885; J2250; J2270; J2405; J2704; J2720; J2765; J2916; J2997; J3010; J7040; J7050; J7120; P9016; Q9966; Q9967